=== PATIENT | female | born 1995 | race Two or more races ===

== ENCOUNTER → 2022-12-01 10:35 | Outpatient (BNVA) | payer OTHER, SELFPAY | PROVIDERS: Visit Provider Physician Assistant Surgical ==

== ENCOUNTER → 2022-12-09 13:58 | Outpatient (BNVA) | payer OTHER, SELFPAY | PROVIDERS: Visit Provider Physician Assistant Surgical | DX: E66.01 Morbid (severe) obesity due to excess calories (principal); Z68.41 Body mass index [BMI] 40.0-44.9, adult | CPT/HCPCS: 99202; 99211 ==

== ENCOUNTER 2022-12-09 16:25 | Outpatient (REF) | payer OTHER, SELFPAY ==
[2022-12-10 12:39] LABS: H Pylori Breath Test Negative (Negative)
== END 2022-12-09 16:26 | disposition home or self-care (01) ==
LOC: HO.LNP 16:25
PROVIDERS: Visit Provider Physician Assistant Surgical
DX: E66.01 Morbid (severe) obesity due to excess calories (principal)
CPT/HCPCS: 83013

== ENCOUNTER 2022-12-13 10:20 | Outpatient (REF) | payer OTHER, SELFPAY ==
--- NOTE | ~2022-12-13 | XR_ITS ---
EXAMINATION: XR CHEST CLINICAL INFORMATION: Reason for Exam E66.01 - Morbid (severe) obesity due to excess calories COMPARISON: None TECHNIQUE: 2 views of the chest FINDINGS: Lines and tubes: None. Clear lungs. No pleural effusion. No pneumothorax. Normal cardiomediastinal silhouette. XR/XR chest 2V IMPRESSION: * Clear lungs.
--- NOTE | 2022-12-13 10:30 | ECG_ITS ---
Test Reason : MORBID OBESITY Blood Pressure : / mmHG Vent. Rate : 079 BPM Atrial Rate : 079 BPM P-R Int : 150 ms QRS Dur : 080 ms QT Int : 370 ms P-R-T Axes : 019 093 043 degrees QTc Int : 424 ms Normal sinus rhythm Rightward axis Borderline ECG No previous ECGs available Referred By: Karely Modi Electronically Signed By:DIEGO FANG
[2022-12-13 10:44] LABS: MANUAL DIFF FLAG NO
[2022-12-13 11:08] LABS: Basophils Percent Auto 0.5 % (0-2); Eosinophils Absolute Auto 0.2 X10*3/uL (0.0-0.4); Eosinophils Percent Auto 2.4 % (0-4); Hematocrit 43.2 % (37.0-47.0); Hemoglobin 14.1 g/dl (12.0-16.0); Imm Gran Abs Auto 0.03 X10*3/uL (0.00-0.03); Imm Gran Pct Auto 0.4 % (0.0-0.4); Lymphocytes Absolute Auto 2.6 X10*3/uL (1.2-4.9); Lymphocytes Percent Auto 32.2 % (20-40); Mean Corpuscular HGB Conc 32.6 g/dl (31.0-35.0); Mean Corpuscular Hemoglobin 27.9 pg (27.0-33.0); Mean Corpuscular Volume 85.4 fL (80.0-98.0); Mean Platelet Volume 10.7 fL (9.4-12.3); Monocytes Absolute Auto 0.7 X10*3/uL (0.1-1.2); Monocytes Percent Auto 8.8 % (2-11); Neutrophils Absolute Auto 4.5 x10*3/uL (2.0-8.3); Neutrophils Percent Auto 55.7 % (45-73); Platelet Count 314 X10*3/uL (160-400); Red Blood Count 5.06 X10*6/uL (4.20-5.50); Red Cell Distribution Width 14.8 % (11.0-16.0)
[2022-12-13 11:17] LABS: Estimated Average Glucose 100 mg/dL; Hemoglobin A1c % 5.1 %
[2022-12-13 12:11] LABS: Alanine Aminotransferase 15 U/L (0-31); Albumin Level 4.1 g/dL (3.5-5.0); Alkaline Phosphatase 102 U/L (39-117); Anion Gap 13 (12-20); Aspartate Amino Transferase 13 U/L (5-31); Bilirubin Total 0.3 mg/dL (0.0-1.0); Blood Urea Nitrogen 18 mg/dL (9-16); C Reactive Protein 0.34 mg/dL (< or = 0.50); Calcium 9.6 mg/dL (8.4-10.2); Carbon Dioxide 26 mmol/L (22-29); Chloride 107 mmol/L (96-108); Cholesterol 148 mg/dL; Estimated Glomerular Filt Rate > 60; Glucose Random 103 mg/dL (60-115); HDL Cholesterol 45 mg/dL; Iron 40 mcg/dL (30-160); LDL Cholesterol Calculated 87 mg/dl; Percent Iron Saturation 13 % (15-50); Potassium 4.6 mmol/L (3.3-5.1); Sodium 141 mmol/L (135-145); Total Iron Binding Capacity 302 mcg/dL (228-428); Total Protein 7.6 g/dL (6.5-8.0); Triglycerides 81 mg/dL; Unsaturated Iron Binding 262 ug/dL
[2022-12-13 12:31] LABS: Folate 10.4 ng/mL (> or = 4.0); Vitamin B12 420 pg/mL (200-900)
[2022-12-13 12:37] LABS: Ferritin 30 ng/mL (10-122); Insulin 19 uU/mL (2-29); TSH reflex Free T4 0.47 uIU/mL (0.32-4.0); Vitamin D 25-OH Total 19.5 ng/mL (>30)
[2022-12-15 13:19] LABS: Calcium (PTHI) 9.4 mg/dL (8.6-10.2); PTHI 37 pg/mL (16-77)
[2022-12-17 06:09] LABS: Zinc 64 mcg/dL (60-130)
== END 2022-12-13 10:21 | disposition home or self-care (01) ==
LOC: HO.LAB 10:20
PROVIDERS: Visit Provider Physician Assistant Surgical
DX: E66.01 Morbid (severe) obesity due to excess calories (principal)
CPT/HCPCS: 36415; 71046; 80053; 80061; 82306; 82607; 82728; 82746; 83036; 83525; 83540; 83970; 84443; 84630; 85025; 86140; 93005

== ENCOUNTER 2022-12-30 08:56 | Outpatient (REF) | payer OTHER, SELFPAY | END 2022-12-30 08:57 | disposition home or self-care (01) | LOC: HO.XRAY 08:56 | PROVIDERS: Visit Provider Physician Assistant Surgical | DX: E66.01 Morbid (severe) obesity due to excess calories (principal) | CPT/HCPCS: 74246; 99212 ==

== ENCOUNTER 2023-01-06 10:01 | Outpatient (AMB) | payer OTHER, SELFPAY ==
--- NOTE | 2023-01-06 10:09 | MHC.WMTHER ---
Intake Intake Visit Reasons: (OV) BH Intake Allergies No Known Allergies Allergy (Verified 12/30/22 13:43) PFSH Family History Mother TSH (thyroid-stimulating hormone deficiency) Father Diabetes Daughter No problems noted. Daughter No problems noted. Son Asthma Social History Alcohol intake: never Patient Tobacco Use Status: Never used Tobacco Behavioral Health Assessment Weight Management Therapy Therapy Notes Details Pt is a 27 year old, , [place] Speaking female who presents for initial assessment as part of Surgical Weight-loss management program. PT reports her weight lamb started in 2016 after first , then in 2018 she found confort in food to deal with grief after losing a love one, and now after 3rd child she wants to have a lifelong change with bariatric surgery. PT denies ever been in counseling before, denies any past hospitalization for mental health, reported no hx of substance use and/or addictive behavior and denied ever struggle with SI and/or other form of self/other-harm. PT scores from BES showed minimal risk for Binge eating behavior, she also denied not been engaging in emotional eating for the past years and scores from PHQ-9 were not a concern or indicator of depression. PT is cleared from the standpoint but she wants to continue receiving monthly support from this provider. Presenting Concerns Referral Source [facility] Provider. Reason for referral Completion of behavioral health assessment as part of process for weight-loss surgery. Precipitating Event Obesity, gets tired easily. Living Situation Current Living Situation Rent At risk of losing current housing? No Satisfied with current living situation? Yes Comments PT lives with 3 children and partner. Food/Weight/Diet Expectations of change PT wants to achieve a healthy weight and lifestyle. History/Relationship with food In 2018 her grandmother and she did her grief with comfort-eating. Since became a mother she started skipping meals, usually breakfast and lunch, leading her to eat once at day. Usually her one meal at day was rice, beans, meat. If she wasn't as hungry she had cereal/milk. She used to eat out 1-2 times at week. History/Relationship with weight She was skinny in childhood. Then as a teen was on normal weight. Started gaining weight after first in 2016. History/Relationship with dieting Pt has tried several diets, exercise plans, Herbalife, OTC pills. Usually tried things for about 6 months, was able to lost 20Lbs with Herbalife but gained weight back with last . Binge Eating Do you frequently eat large amounts of food in short periods of time, not feeling physically hungry? No Do you feel out of control when you eat a large amount of food in a short period of time? No Do you eat large amounts of food rapidly and typically alone? No Night Eating Do you wake up at least once during the night to eat? No If you wake up in the night, do you find that it is necessary to eat something in order to fall back asleep? No Do you have little or no appetite in the morning and feel very hungry in the evening, often overeating between dinner and when you go to bed? Yes Social History Family history and relationship Pt is in a relationship with youngest daughter's father for about 2 years. She has 15 siblings she's aware of (7 mother's side, about 8 from dad's side). They all are very close. Parents are alive but , they live in [place]. Parental/Familial collaborative physician obligations 3 children. (7 y/o son, 5y/o daughter, and 8 month old daughter) Developmental history and status within normal limits. Social support [employer], children. Community support providers Faith/Spirituality None specified. Cultural/Ethnic information PT was born in [place]. Moved to [place] 2 years ago. Pt is mainly [place]-speaking. Legal Involvement and History Current or historical involvement with the legal system? None reported Education Highest grade completed 12th grade. She has a certificate in gastronomy. Preferred learning style Written, Learn by doing and Visual Currently enrolled in educational program? No Interested in further educational program? 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 Employment Employment Status Unemployed Wants help to find employment? No (She's looking into go back to school. ) Meaningful activities Family activities, go to the park, music. Financial Situation Financial assistance? [place], [employer] and Other ([employer]) Service Service? No Mental Health and Addiction Treatment Current/Past substance abuse? No Current/Past addictive behavior concerns? No Psychiatric history Never been in therapy and/or hospitalized for mental health. Denies ever experience SI, and or other self-harm/other-harm concern. Medical and Physical Health Summary Additional Medical History not covered in history None reported Sexual History concerns None reported Physical exam in the last year? No Pain Screening Current pain? Yes Pain in the last few months? Yes Comments Back pain. Medications Is the patient compliant with medications? Not applicable Does the patient have Pryor Guardian in place? Not applicable Does the patient use complimentary health approaches? No Trauma/Abuse History History of trauma? No Questionnaires PHQ-9 Over the last 2 weeks, how often have you been bothered by any of the following problems? 1. Little interest or pleasure in doing things: several days 2. Feeling down, depressed, or hopeless: not at all 3. Trouble falling or staying asleep, or sleeping too much: several days 4. Feeling tired or having little energy: several days 5. Poor appetite or overeating: not at all 6. Feeling bad about yourself - or that you are a failure or have let yourself or your family down: not at all 7. Trouble concentrating on things, such as reading the newspaper or watching television: not at all 8. Moving or speaking so slowly that other people could have noticed. Or the opposite - being so fidgety or restless that you have been moving around a lot more than usual: not at all 9. Thoughts that you would be better off or of hurting yourself in some way: not at all Total score: 3 Depression Screening Interpretation: Negative Source: Developed by Drs. Denny Dewey, Sailaja Lay, Silvano Menjivar and colleagues, with an educational dominick from [employer] Binge Eating Scale Group 1 A. I don't feel self-conscious about my wt. or body size when I'm with others. B. I feel concerned about how I look to others, but it normally does not make me fell disappointed with myself C. I do get self-conscious about my appearance and wt. which makes me feel disappointed in myself. D. I feel very self-conscious about my wt. and frequently I feel intense shame and disgust for myself. I try to avoid social contacts because of my self-consciousness. Response Group 1: B Group 2 A. I don't have any difficulty eating slowly in the proper manner. B. Although I seem to gobble down foods, I don't end up feeling stuffed because of eating to much. C. At times, I tend to eat quickly and then, I feel uncomfortably full afterwards. D. I have the habit of bolting down my food, without really chewing it. When this happens I usually feel uncomfortably stuffed because I've eaten to much. Response Group 2: A Group 3 A. I feel capable to control my eating urges when I want to. B. I feel like I have failed to control my eating more than the average person. C. I feel utterly helpless when it comes to feeling in control of my eating urges. D. Because I feel so helpless about controlling my eating I have become very desperate about trying to get control. Response Group 3: B Group 4 A. I don't have the habit of eating when I'm bored. B. I sometimes eat when I'm bored, but often I'm able to get busy and get my mind off food. C. I have a regular habit of eating when I'm bored, but occasionally, I can use some other activity to get my mind off eating. D. I have a strong habit of eating when I'm bored. Nothing seems to help me breath the habit. Response Group 4: B Group 5 A. I'm usually physically hungry when I eat something. B. Occasionally, I eat something on impulse even though I really am not hungry. C. I have the regular habit of eating foods, that I might not really enjoy, to satisfy a hungry feeling even though physically, I don't need the food. D. Although I'm not physically hungry, I get a hungry feeling in my mouth that only seems to be satisfied when I eat a food, like sandwich, that fills my mouth. Sometimes, when I eat the food to satisfy my mouth hunger, I then spit the food out so I won't gain weight. Response Group 5: B Group 6 A. I don't feel any guilt or self-hate after I overeat. B. After I overeat, occasionally I feel guilt or self-hate. C. Almost all the time I experience strong guilt or self-hate after I overeat. Response Group 6: C Group 7 A. I don't lose total control of my eating when dieting even after periods when I overeat. B. Sometimes when I eat a forbidden food on a diet, I feel like I blew it and eat even more. C. Frequently, I have the habit of saying to myself, I've blown it now, why not go all the way, when I overeat on a diet. When that happens I eat more. D. I have a regular habit of starting a strict diets for myself but I break the diets by going on an eating binge. My life seems to be either a feast or famine. Response Group 7: A Group 8 A. I rarely eat so much food that I feel uncomfortably stuffed afterwards. B. Usually about once a month, I each such a quantity of food, I end up feeling very stuffed. C. I have regular periods during the month when I eat large amounts of food, either at mealtime or at snacks. D. I eat so much food that I regularly feel quite uncomfortable after eating and sometimes a bit nauseous. Response Group 8: C Group 9 A. My level of calorie intake does not go up very high or go down very low on a regular basis. B. Sometimes after I overeat, I will try to reduce my caloric intake to almost nothing to compensate for the excess calories I've eaten. C. I have a regular habit of overeating during the night. It seems that my routine is not to be hungry in the morning but overeat in the evening. D. In my adult years, I have had week-long periods where I practically starve myself. This follows periods when I overeat. It seems I live a life of either feast or famine. Response Group 9: C Group 10 A. I usually am able to stop eating when I want to. I know when enough is enough. B. Every so often, I experience a compulsion to eat which I can't seem to control. C. Frequently, I experience strong urges to eat which I seem unable to control, but at other times I can control my eating urges. D. I feel incapable of controlling urges to eat. I have a fear of not being able to stop eating voluntarily. Response Group 10: A Group 11 A. I don't have any problem stopping eating when I feel full. B. I usually can stop eating when I feel full but occasionally overeat leaving me feeling uncomfortably stuffed. C. I have a problem stopping eating once I start and usually I feel uncomfortably stuffed after I eat a meal. D. Because I have a problem not being able to stop eating when I want, I sometimes have to induce vomiting to relieve my stuffed feeling. Response Group 11: B Group 12 A. I seem to eat just as much when I'm with others, Family social gatherings as when I'm by myself. B. Sometimes, when I'm with other persons, I don't eat as much as I want to eat because I'm self-conscious about my eating. C. Frequently, I eat only a small amount of food when others are present, because I'm very embarrassed about my eating. D. I feel so ashamed about overeating that I pick times to overeat when I know no one will see me. I feel like a closet eater. Response Group 12: A Group 13 A. I eat three meals a day with only an occasional between meal snack. B. I eat 3 meals a day, but I also normally snack between meals. C. When I am snacking heavily, I get in the habit of skipping regular meals. D. There are regular periods when I seem to be continually eating, with no planned meals. Response Group 13: D Group 14 A. I don't think much about trying to control unwanted eating urges. B. At least some of the time, I feel my thoughts are pre-occupied with trying to control my eating urges. C. I feel that frequently I spend much time thinking about how much I ate or about trying not to eat anymore. D. It seems to me that most of my waking hours are pre-occupied by thoughts about eating or not eating. I feel like I'm constantly struggling not to eat. Response Group 14: B Group 15 A. I don't think about food a great deal. B. I have strong craving for food but they last only for brief periods of time. C. I have days when I can't seem to think about anything else but food. D. Most of my days seem to be pre-occupied with thoughts about food. I feel like I live to eat. Response Group 15: A Group 16 A. I usually know whether or not I'm physically hungry. I take the right portion of food to satisfy me. B. Occasionally, I feel uncertain about knowing whether or not I'm physically hungry. A these times it's hard to know how much food I should take to satisfy me. C. Even though I might know how many calories I should eat, I don't have any idea what is a normal amount of food for me. Response Group 16: B Binge Eating Score: 16 Score less than 17 Minimal Risk Score between 18-26 Moderate Risk Score between 27-46 High Risk Assessment & Plan Assessment & Plan (1) Adjustment disorder: Code(s): F43.20 - Adjustment disorder, unspecified Qualifiers: Adjustment disorder type: unspecified type Qualified Code(s): F43.20 - Adjustment disorder, unspecified Plan After completing the assessment and comparing scores from Binge eating scale and PHQ9, at this time, this commercial real estate underwriter has no concerns about patient's mental status. Client is cleared from the behavioral health standpoint but, we will f/up in about a month for support. Coding Level of Care Code New Pt Psy Diag Flip (34682) Patient Type New Diagnoses Adjustment disorder F43.20 Adjustment disorder type: unspecified type Time Spent (min) 60
== END 2023-01-06 11:10 | disposition home or self-care (01) ==
PROVIDERS: Visit Provider Counselor Mental Health
DX: F43.20 Adjustment disorder, unspecified (principal)
CPT/HCPCS: 90791

== ENCOUNTER → 2023-01-06 10:01 | Outpatient (BNVA) | payer OTHER, SELFPAY | PROVIDERS: Visit Provider Counselor Mental Health ==

== ENCOUNTER 2023-01-10 11:12 | Outpatient (AMB) | payer OTHER, SELFPAY ==
--- NOTE | 2023-01-10 11:17 | A.OFFVIS_ITS ---
Intake Intake Visit Reasons: (OV) Initial Nutrition [facility] Fisher Diver Net Required: Yes Fisher Diver Net Name: [id number] lilly Information Interpreted: non-clinical & clinical Allergies No Known Allergies Allergy (Verified 12/30/22 13:43) HPI Nutrition Presentation Details [employer] weight 227# Current weight 227# Reason for consult elevated BMI Unstable SDH Reports use of SNAP and WIC Diet Assmnt Details Two 1 scoop Premier powder with 8oz non-fat milk 2-3 Fitcrunch bars about 4 oz of protein (chicken, pork chop, or fish), and vegetables Exercise: stationary bike at home, following her plan SW online classes : completed, she took the entire curriculum several times. She wanted to understand and learn everything. she took notes as well and showed me Dietary counseling reduction Diagnosis Nutrition problem #1 overweight/obesity As related to (etiology) #1 excess energy intake and physical inactivity As evidenced by (sign/symptom) #1 high BMI Monitoring/Goals Nutrition problem monitoring total energy intake, level of knowledge/skill, total PRO intake, total CHO intake, weight and oral fluids Outcome progress progressing Learning/Education Readiness to learn excellent Stages of change action Educational materials provided Yes Most Recent Diabetes Results: Cholesterol 148 mg/dL 12/13/22 HDL Cholesterol 45 mg/dL 12/13/22 Triglycerides 81 mg/dL 12/13/22 Creatinine 0.82 mg/dL (0.5-1.4) 12/13/22 Blood Urea Nitrogen 18 mg/dL (9-16) H 12/13/22 Sodium 141 mmol/L (135-145) 12/13/22 Potassium 4.6 mmol/L (3.3-5.1) 12/13/22 Chloride 107 mmol/L (96-108) 12/13/22 Carbon Dioxide 26 mmol/L (22-29) 12/13/22 Calcium 9.6 mg/dL (8.4-10.2) 12/13/22 AST 13 U/L (5-31) 12/13/22 ALT 15 U/L (0-31) 12/13/22 Total Protein 7.6 g/dL (6.5-8.0) 12/13/22 Albumin 4.1 g/dL (3.5-5.0) 12/13/22 PFSH Family History Mother TSH (thyroid-stimulating hormone deficiency) Father Diabetes Daughter No problems noted. Daughter No problems noted. Son Asthma Social History Alcohol intake: never Patient Tobacco Use Status: Never used Tobacco Assessment & Plan Assessment & Plan (1) Morbid obesity: Code(s): E66.01 - Morbid (severe) obesity due to excess calories Patient Instructions: Patient is cleared from a nutrition standpoint for bariatric surgery. Educational requirements have been completed. Reviewed vitamin supplementation and commitment to protein shake for several months post surgery. Encouraged communication with office as needed Coding Level of Care Code Nutr Indiv Intake (72783) Diagnoses Morbid obesity E66.01 Time Spent (min) 30 Comment in office
== END 2023-01-10 11:47 | disposition home or self-care (01) ==
PROVIDERS: Visit Provider Dietitian, Registered
DX: E66.01 Morbid (severe) obesity due to excess calories (principal)

== ENCOUNTER → 2023-01-10 11:53 | Outpatient (REF) | payer OTHER, SELFPAY | LOC: HO.SL 11:53 | PROVIDERS: Visit Provider Physician Assistant Surgical | DX: R06.83 Snoring (principal); E66.01 Morbid (severe) obesity due to excess calories | CPT/HCPCS: 95806; 97802 ==

== ENCOUNTER → 2023-01-10 12:55 | Outpatient (BNV) | payer OTHER, SELFPAY | PROVIDERS: Visit Provider Internal Medicine | DX: R06.83 Snoring (principal) | CPT/HCPCS: 95806 ==

== ENCOUNTER 2023-01-11 09:57 | Outpatient (REF) | payer OTHER, SELFPAY ==
--- NOTE | ~2023-01-11 | US_ITS ---
EXAMINATION: US COMPLETE ABDOMEN WITH LIVER ELASTOGRAPHY CLINICAL INFORMATION: Morbid obesity. COMPARISON: None available. TECHNIQUE: Real-time imaging of the abdominal viscera. Noninvasive ultrasound liver fibrosis assessment is performed using Piotr ElastPQ point quantification shear wave elastography (2D-SWE) with a C5-2 MHz transducer. Multiple elastography samples are obtained. FINDINGS: PANCREAS: Normal. The visualized pancreatic head and body are normal in appearance. The remainder of the pancreas is obscured from visualization by the overlying bowel gas. ABDOMINAL AORTA: The proximal, middle, and distal aortic segments are normal in caliber. INFERIOR VENA CAVA: Visualized portions are normal. LIVER: Normal. The liver demonstrates normal size, contour and echogenicity. No focal lesion or intrahepatic biliary duct dilatation. The right lobe measures 18.9 cm in length. The left lobe measures 10.3 cm in length. Portal flow is towards the liver (hepatopetal). Shear wave liver elastography median stiffness is 1.16 m/s (reference: normal median stiffness is 1.3 m/s or less). IQR/median stiffness to assess sampling precision is 0.04 (reference: good quality data set is IQR/median stiffness of 0.15 or less). GALLBLADDER: A 5 mm nonmobile polyp is seen. The gallbladder is physiologically distended without evidence of stones, sludge, polyps, wall thickening or pericholecystic fluid. COMMON BILE DUCT: Normal in caliber measuring 0.3 cm in diameter. RIGHT KIDNEY: Normal. There is very mild pelviectasis, without alok hydronephrosis. No renal calculi or focal parenchymal lesions. The kidney measures 11.8 cm in maximum dimension. LEFT KIDNEY: Normal. No hydronephrosis. No renal calculi or focal parenchymal lesions. The kidney measures 10.0 cm in maximum dimension. SPLEEN: Normal. The spleen measures 10.7 cm in maximum dimension. FREE FLUID: None. US/US abdomen comp w elastography IMPRESSION: 1. There is mild hepatomegaly. 2. Liver elastography: Measurements are consistent with a high probability of normal liver stiffness. 3. A 5 mm nonmobile gallbladder polyp is seen. As a precaution, a repeat abdominal ultrasound examination is recommended in 6 months to ensure stability of this finding. REFERENCE: Society of Radiologists in Ultrasound Liver Stiffness Thresholds (2020): LIVER STIFFNESS THRESHOLDS: *Liver Stiffness equal or less than 1.3 m/s: High probability of being normal. *Liver Stiffness less than 1.7 m/s: In the absence of other known clinical signs, rules out compensated advanced chronic liver disease. *Liver Stiffness 1.7-2.1 m/s: Suggestive of compensated advanced chronic liver disease but need further test for confirmation. *Liver Stiffness over 2.1 m/s: Rules in compensated advanced chronic liver disease. *Liver Stiffness over 2.4 m/s: Suggestive of clinically significant portal hypertension. QUALITY OF DATA SET: *IQR/Median value equal or less than 0.15 implies a quality data set. *IQR/Median value over 0.15 implies a poor quality data set. SIGNIFICANT CHANGE FROM PRIOR EXAM: Significant change if liver stiffness measurement is 10% or greater from prior exam. OTHER CONSIDERATIONS: The stage of liver fibrosis may be overestimated in the setting of acute hepatitis, liver inflammation, elevated liver function tests, hepatic vascular congestion, obstructive cholestasis, non-fasting state, and infiltrative diseases such as amyloidosis and lymphoma. In some patients with NAFLD, the liver stiffness thresholds for compensated advanced chronic liver disease may be lower. In causes other than viral hepatitis and NAFLD, liver stiffness thresholds are not well established.
== END 2023-01-11 09:58 | disposition home or self-care (01) ==
LOC: HO.US 09:57
PROVIDERS: Visit Provider Physician Assistant Surgical
DX: E66.01 Morbid (severe) obesity due to excess calories (principal)
CPT/HCPCS: 76705; 76981

== ENCOUNTER 2023-02-07 13:04 | Outpatient (AMB) | payer OTHER, SELFPAY ==
--- NOTE | 2023-02-07 13:07 | MHC.OFFVISWM ---
Intake VS Expanded 02/07/23 13:14 Height 5 ft 2.5 in Weight 217 lb 6.4 oz BMI 39.1 BP 132/79 Blood Pressure Location Rt brachial Blood Pressure Position Sitting Pulse 95 Pulse Source Pulse Oximeter Temp 97.4 F Temperature Source Temporal Artery Scan Pulse Oximetry 100 Oxygen Delivery Method Room Air Body Fat 97.0 Body Fat Percentage 44.6 Free Fat Mass 120.4 Muscle Mass 114.2 Visceral Mass 10.0 Water Mass 86.6 BMR 1,729 Intake Visit Reasons: (OV) F/U SWL Allergies No Known Allergies Allergy (Verified 12/30/22 13:43) Medication List - Last Reconciled 02/07/23 by FROY Alfredo cholecalciferol (vitamin D3) 50 mcg PO DAILY HPI HPI Comments History of Present Illness Details The patient is a p josé 27 year ol d female who retur ns to the clinic f or pre-operative s urgical weight los s management.?They were last seen in the office on 12/30, recorded we ight at that time was 231.2 pounds, with a BMI of 41.6 .? Today's weight is 217.4 pounds an d BMI is 39.1.? Th ere has been a sen ght loss of 12.8lb since initiating the SWL program on 12/09/2022 with TB WL 5.56%. Pre op work up completed as follows: SWL c lasses:?01/31 BH williams ts: cleared 01/06 ? ? RD appts: cleare d 01/10 Labs: 12/13- low vit D H. pylo ri: negative 12/09 CXR: 12/13 clear magdaleno ngs EK/20 NSR ABD U/S: 01/11- mil d hepatomegaly, li aby stiffness WNL, 5mm nonmobile gal lbladder polyp (6m o f/u recommended) UGI: 01/11- Mild t ransient gastroeso phageal reflux wit hin the distal thi rd of the esophagu s. Otherwise unrem arkable upper GI e xamination Curre nt meal plan inclu darin: Premier 1 sco op in 8oz unsweete herlinda almond milk ea ch at 8am-10am, an d 11am-1pm. On day s you sleep later, have one shake wi th 2 scoops in 8oz milk at 11am-1pm. 2 FitCrunch prot ein bars at 2pm-4p m and 7pm-9pm Dinn er at 5pm: 6 forks of protein and 6 forks of salad/veg etables Pt report s she eliminated i ce, made almond mi lk cold so she res umed drinking this instead of 1% mil k. Current exerc ise plan includes: likes to walk, 30 0-400 calories now up to 7x/week PFSH Family History Mother TSH (thyroid-stimulating hormone deficiency) Father Diabetes Daughter No problems noted. Daughter No problems noted. Son Asthma Social History Alcohol intake: never Patient Tobacco Use Status: Never used Tobacco Assessment & Plan Assessment & Plan (1) Obesity: Code(s): E66.9 - Obesity, unspecified Plan Pt doing well on current meal plan, increased exercise. Congratulated pt on her progress thus far. All preop testing completed. Will schedule visit with Dr. Mustafa in 2 weeks to discuss surgery. Discussed with pt that at next visit if she continues to make good progress we can consider submitting to insurance and scheduling a surgery date. Pt to see me again in 4-5 weeks (scheduled for March but I informed pt I would keep her on my cancellation list for sooner appt in February). Patient is obese and is not considered stable at this time. I spent a total of 30 minutes reviewing/updating records, examining the patient and counseling the patient on weight management as detailed above. Coding Level of Care Code Est Pt Level 4 (10219) Diagnoses Obesity E66.9
[2023-02-07 13:14] VITALS: BP 132/79; PULSE 95; TEMP 36.3; O2SAT 100; BMI 39.1
== END 2023-02-07 13:40 | disposition home or self-care (01) ==
PROVIDERS: Visit Provider Physician Assistant Surgical
DX: E66.9 Obesity, unspecified (principal); Z68.39 Body mass index [BMI] 39.0-39.9, adult
CPT/HCPCS: 99214

== ENCOUNTER → 2023-02-07 13:04 | Outpatient (BNVA) | payer OTHER, SELFPAY | PROVIDERS: Visit Provider Physician Assistant Surgical | DX: E66.9 Obesity, unspecified (principal); Z68.39 Body mass index [BMI] 39.0-39.9, adult | CPT/HCPCS: 99212 ==

== ENCOUNTER 2023-02-16 10:53 | Outpatient (AMB) | payer OTHER, SELFPAY ==
--- NOTE | 2023-02-16 10:43 | A.OFFVIS_ITS ---
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 Weight history shows fluctuations, suggesting that patient is still struggling with consistency Ate rice, started drinking soda again, fried foods At last appointment reported: Two 1 scoop Premier powder with 8oz non-fat milk 2-3 Fitcrunch bars about 4 oz of protein (chicken, pork chop, or fish), and vegetables Exercise: stationary bike at home, following her plan [facility] online classes : completed, she took the entire curriculum several times. She wanted to understand and learn everything. she took notes as well and showed me Dietary counseling reduction Diagnosis Nutrition problem #1 overweight/obesity As related to (etiology) #1 excess energy intake and physical inactivity As evidenced by (sign/symptom) #1 high BMI Monitoring/Goals Nutrition problem monitoring total energy intake, level of knowledge/skill, total PRO intake, total CHO intake, weight and oral fluids Outcome progress progressing Learning/Education Readiness to learn excellent Stages of change relapse Educational materials provided Yes Most Recent Diabetes Results: Cholesterol 148 mg/dL 12/13/22 HDL Cholesterol 45 mg/dL 12/13/22 Triglycerides 81 mg/dL 12/13/22 Creatinine 0.82 mg/dL (0.5-1.4) 12/13/22 Blood Urea Nitrogen 18 mg/dL (9-16) H 12/13/22 Sodium 141 mmol/L (135-145) 12/13/22 Potassium 4.6 mmol/L (3.3-5.1) 12/13/22 Chloride 107 mmol/L (96-108) 12/13/22 Carbon Dioxide 26 mmol/L (22-29) 12/13/22 Calcium 9.6 mg/dL (8.4-10.2) 12/13/22 AST 13 U/L (5-31) 12/13/22 ALT 15 U/L (0-31) 12/13/22 Total Protein 7.6 g/dL (6.5-8.0) 12/13/22 Albumin 4.1 g/dL (3.5-5.0) 12/13/22 PFSH Family History Mother TSH (thyroid-stimulating hormone deficiency) Father Diabetes Daughter No problems noted. Daughter No problems noted. Son Asthma Social History Alcohol intake: never Patient Tobacco Use Status: Never used Tobacco Assessment & Plan Assessment & Plan (1) Morbid obesity: Code(s): E66.01 - Morbid (severe) obesity due to excess calories Patient Instructions: Concerned about patient's weight history which shows fluctuations. Explained she use this experiences as a learning opportunity and explained why it is important to find alternative coping strategies non-food related and I recommended an appointment with [facility] Location of provider rendering services: practice address Location of patient: address on file Patient Identification confirmed using: Name, : Yes Telehealth method: voice only Patient verbally consented to treatment: Yes Patient verbally consented to billing insurance company: Yes Patient informed of any privacy concerns related to visit: Yes Minutes spent on Phone/Video with Pt.: 30 Coding Level of Care Code Nutr Indiv Subseq ([id number]) Diagnoses Morbid obesity E66.01 Time Spent (min) 30
--- OUTSIDE RECORDS SUMMARY | 2023-02-16 10:55 | XMS_ITS | Continuity of Care Document ---
Author Name Unknown Organization [facility] Address [address] [place] [id number]- Care Team Providers Care Corrections Counselor Name Role Phone Not on Staff, PCP Primary Care Physician Unavail able Encounter [facility] [place] [facility] Date(s): 01/25/22 - 05/22/[address] [address] Attending Physician: Not on Staff, Attending MD Allergies, Adverse Reactions, Alerts No Known Allergies Immunizations Given and Recorded Vaccine Date Status Refusal Reason influenza virus vaccine, inactivated 04/20/22 Give n Measles/Mumps/Rubella Virus Vaccine 04/19/22 Given tetanus/diphtheria/pertussis, acel(Tdap) 02/10/22 Given Medications Multivitamins with Folic Acid 1 mg oral tablet 1 tablet, By Mouth, Daily, # 90 tablet, 2 Refills, Maintenance, 03/25/22 16:52:00 EDT, [id number], Partial fill upon patient request if the prescription is for a schedule II opioid drug., 1 tablet By Mouth Daily, 160, cm, 03/25/22 16:... Start Date: 03/25/22 Status: Ordered Problem List Condition Confirmation Course Effective Dates Status Health St atus Informant GERD (gastroesophageal reflux disease) Confirmed Active Uses Pashto as primary spoken language Confirmed Active Severe obesity Confirmed Active Social History Social History Type Response Smoking Status Never (less than 100 in lifetime) entered on: 11/08/21 Sex Patient Care team information Care Team Personnel Name: Not on Staff, PCP Position: S Physician (General Medicine) Member Role: PCP Care Team Related Persons Name: AMBER PEREZ Address: home [address] [place] [address] Name: SUZY BRICENO Name: AMAURY IRAHETA Address: [address] Address: [address]
--- OUTSIDE RECORDS SUMMARY | 2023-02-16 10:55 | XMS_ITS | Continuity of Care Document ---
Author Name Unknown Organization [facility] Address [address], [place], [place] [address]- Care Team Providers Care Civil Cad Tech Name Role Phone Not on Staff, PCP Primary Care Physician Unavail able Encounter [facility] [place] Date(s): 06/13/22 - 07/13/22 [facility] [address] [place], [place] [address] Allergies, Adverse Reactions, Alerts No Known Allergies Immunizations Given and Recorded Vaccine Date Status Refusal Reason influenza virus vaccine, inactivated 04/20/22 Give n Measles/Mumps/Rubella Virus Vaccine 04/19/22 Given tetanus/diphtheria/pertussis, acel(Tdap) 02/10/22 Given Medications docusate sodium 100 mg oral tablet 1 tablet = 100 mg, By Mouth, 2 times a day, PRN for constipation, # 100 tablet, 0 Refills, Maintenance, 06/07/22 17:11:00 EST, Tablet, [id number], Partial fill upon patient request if the prescription is for a schedule II opioid drug.... Start Date: 06/07/22 Status: Ordered Problem List Condition Confirmation Course Effective Dates Status Health St atus Informant GERD (gastroesophageal reflux disease) Confirmed Active Uses Icelandic as primary spoken language Confirmed Active Obese class II Confirmed Active Social History Social History Type Response Smoking Status Never (less than 100 in lifetime) entered on: 11/08/21 Sex Patient Care team information Care Team Personnel Name: Not on Staff, PCP Position: S Physician (General Medicine) Member Role: PCP Care Team Related Persons Name: AMBER PEREZ Address: home [address] [place] [address] Name: SUZY BRICENO Name: AMAURY IRAHETA Address: [id number] Address: home [address] [place] [address] [place]
--- OUTSIDE RECORDS SUMMARY | 2023-02-16 10:55 | XMS_ITS | Continuity of Care Document ---
Author Name Unknown Organization [facility] Address [address] [place] [address]- Care Team Providers Care Tire Servicer Name Role Phone Not on Staff, PCP Primary Care Physician Unavail able Encounter [facility] [place] Date(s): 11/12/21 - 12/12/[address] [address]- Allergies, Adverse Reactions, Alerts No Known Allergies Medications Multivitamins By Mouth, Daily, 0 Refills, Maintenance, 10/26/21 16:32:00 EDT, Partial fill upon patient request if the prescription is for a schedule II opioid drug. Start Date: 10/26/21 Status: Ordered Multivitamins with Folic Acid 1 mg oral tablet 1 tablet, By Mouth, Daily, # 90 tablet, 2 Refills, Maintenance, 11/08/21 9:44:00 EDT, [facility], Partial fill upon patient request if the prescription is for a schedule II opioid drug., 1 tablet By Mouth Daily, 159, cm, 11/08/21 9:14:00... Start Date: 11/08/21 Status: Ordered Prometrium 200 mg oral capsule = 200 mg, Vaginally, Daily at bedtime, # 60 tablet, 3 Refills, Acute 03/25/22 16:35:00 EDT, 11/11/21 16:34:00 EDT, [facility], Partial fill upon patient request if the prescription is for a schedule II opioid drug., 159, cm, 11/11/21 15:... Start Date: 11/11/21 Stop Date: 03/25/22 Status: Ordered Problem List Condition Effective Dates Status Health Status Inform ant History of delivery, currently (Confirmed) Active Uses Croatian as primary spok en language(Confirmed) Active Obese class II(Confirmed) Active Social History Social History Type Response Smoking Status Never (less than 100 in lifetime) entered on: 11/08/21 Sex
--- OUTSIDE RECORDS SUMMARY | 2023-02-16 10:55 | XMS_ITS | Continuity of Care Document ---
Author Name Unknown Organization [facility] Address [address] [place] [id number]- Care Team Providers Care Registered Nurse Nursery Name Role Phone Not on Staff, PCP Primary Care Physician Unavail able Encounter [facility] Date(s): 05/12/22 - 06/11/[address] [id number] Allergies, Adverse Reactions, Alerts No Known [...] 0 Refills, Maintenance, 06/07/22 17:11:00 EST, Tablet, [facility][id number], Partial fill upon patient request if the prescription is for a schedule II opioid drug.... Start Date: 06/07/22 Status: Ordered Problem List Condition Confirmation Course Effective Dates Status Health St atus Informant GERD (gastroesophageal reflux disease) Confirmed Active Uses Botswanan as primary spoken language Confirmed Active Obese class II Confirmed Active Social History Social History Type Response Smoking Status Never (less than 100 in lifetime) entered on: 11/08/21 Sex Patient Care team information Care Team Personnel Name: Not on Staff, PCP Position: S Physician (General Medicine) Member Role: PCP Care Team Related Persons Name: PEREZ, AMBER Address: [address] [place] [address] Name: SUZY BRICENO Name: AMAURY IRAHETA Address: [address] Address: home [address]
--- OUTSIDE RECORDS SUMMARY | 2023-02-16 10:55 | XMS_ITS | Continuity of Care Document ---
Author Name Unknown Organization [facility] Address [address] [place] [address]- Care Team Providers Care Fingernail Sculptor Name Role Phone Not on Staff, PCP Primary Care Physician Unavail able Encounter [facility] Date(s): 04/19/22 - 04/21/[address] [address] Discharge Disposition: A-D/C Home Attending Physician: Julia Menard MD Admitting Physician: Julia Menard MD Referring Physician: Julia Menard MD Allergies, Adverse Reactions, Alerts No Known Allergies Immunizations Given and Recorded Vaccine Date Status Refusal Reason influenza virus vaccine, inactivated 04/20/22 Give n Measles/Mumps/Rubella Virus Vaccine 04/19/22 Given tetanus/diphtheria/pertussis, acel(Tdap) 02/10/22 Given Medications Acetaminophen Tablet 650 mg, Tablet, By Mouth, Every 4 hours, PRN for Pain , Mild, (1-3), may give 325mg per patient preference and re-dose with 325mg within 4 hours, if needed. Patient should only receive a total of 650mg of Acetaminophen every 4 hours., Routine, 04/19... Start Date: 04/19/22 Stop Date: 04/21/22 Status: Discontinued Ibuprofen Tablet 800 mg, Tablet, By Mouth, Every 8 hours, PRN for Pain , Moderate, (4-6), may give 400mg per patientpreference and re-dose with 400mg within 8 hours if needed. Patient should only receive a total of 800mg of Ibuprofen every 8 hours., Routine, ... Start Date: 04/19/22 Stop Date: 04/21/22 Status: Discontinued Multivitamins with Folic Acid 1 mg oral tablet 1 tablet, By Mouth, Daily, # 90 tablet, 2 Refills, Maintenance, 03/25/22 16:52:00 EDT, [facility] #[id number], Partial fill upon patient request if the prescription is for a schedule II opioid drug., 1 tablet By Mouth Daily, 160, cm, 03/25/22 16:... Start Date: 03/25/22 Status: Ordered Problem List Condition Confirmation Course Effective Dates Status Health St atus Informant GERD (gastroesophageal reflux disease) Confirmed Active Uses Indonesian as primary spoken language Confirmed Active Severe obesity Confirmed Active Vital Signs Most recent to oldest [Reference Range]: 1 2 3 4 Height 160.02 cm (04/21/22 12:05 AM) 160.02 cm (04/20/22 12:00 AM) 160.02 cm (04/19/22 5:17 PM) Weight 102.5 kg (04/19/22 8:53 AM) 102.5 kg (04/19/22 6:44 AM) Oxygen Saturation [94-100 %] 96 % (04/21/22 9:15 AM) 98 % (04/21/22 12:05 AM) 96 % (04/20/22 12:00 AM) Pulse Rate [55-90 bpm] 88 bpm (04/21/22 12:05 AM) 81 bpm (04/20/22 4:00 PM) 91 bpm *H* (04/20/22 8:15 AM) Body Mass Index [18.5-24.99 kg/m2] 40.03 kg/m2 *>HHI* (04/19/22 8:53 AM) Blood Pressure [90-138/55-84 mm Hg] 120/63mm Hg (04/21/22 9:15 AM) 122/79mm Hg (04/21/22 12:05 AM) 122/73mm Hg (04/20/22 4:00 PM) Respiratory Rate [16-30 br/min] 20 br/min (04/21/22 9:15 AM) 18 br/min (04/21/22 12:05 AM) 18 br/min (04/20/22 11:11 PM) 18 br/min (04/20/22 11:11 PM) Temperature [96.8-100.4 DegF] 98.0 DegF (04/21/22 9:15 AM) 98.9 DegF (04/21/22 12:05 AM) 97.9 DegF (04/20/22 4:00 PM) Mode of Delivery (Oxygen) Room air (04/21/22 9:15 AM) Room air (04/21/22 12:05 AM) Room air (04/19/22 6:53 AM) Blood pressure sites Arm, right (04/21/22 9:15 AM) Arm, right (04/19/22 5:17 PM) Arm, right (04/19/22 11:25 AM) Temperature Route Oral (04/21/22 9:15 AM) Oral (04/21/22 12:05 AM) Oral (04/20/22 4:00 PM) Dry Weight 102.5 kg (04/19/22 8:53 AM) 102.5 kg (04/19/22 6:44 AM) Weight Obtained Via Standing scale (04/19/22 6:44 AM) Dry Weight Obtained Via Standing scale (04/19/22 6:44 AM) Social History Social History Type Response Smoking Status Never (less than 100 in lifetime) entered on: 11/08/21 Sex Patient Care team information Personnel Name: Not on Staff, PCP
--- OUTSIDE RECORDS SUMMARY | 2023-02-16 10:55 | XMS_ITS | Continuity of Care Document ---
Author Name Unknown Organization [facility] Address [address] [place] [address]- Care Team Providers Care Livestock Exhibitor Name Role Phone Not on Staff, PCP Primary Care Physician Unavail able Encounter [facility] Date(s): 12/24/22 - 12/24/[address] [address]- Discharge Disposition: A-D/C Home Attending Physician: Gordon Shrestha MD Admitting Physician: Gordon Shrestha MD Referring Physician: Not on Staff, Referring MD Allergies, Adverse Reactions, Alerts No Known [...] 0 Refills, Maintenance, 06/07/22 17:11:00 EST, Tablet, [id number], Partial fill upon patient request if the prescription is for a schedule II opioid drug.... Start Date: 06/07/22 Status: Ordered hydrocortisone 1% topical cream 1 application, Topically, 2 times a day, PRN Itch, for 7 days, apply in a thin film to the affectedskin and rub in gently and completely, # 15 Gm, 0 Refills, Acute 12/31/22 19:38:00 EDT, 12/24/22 19:38:00 EDT, Cream, [facility] #[id number], Part... Start Date: 12/24/22 Stop Date: 12/31/22 Status: Ordered Problem List Condition Confirmation Course Effective Dates Status Health St atus Informant GERD (gastroesophageal reflux disease) Confirmed Active Uses Chinese as primary spoken language Confirmed Active Severe obesity (BMI 35.0-39.9) with comorbidity Confirmed Active Vital Signs Most recent to oldest [Reference Range]: 1 2 3 Height 160 cm (12/24/22 2:51 PM) Weight 100 kg (12/24/22 2:51 PM) Oxygen Saturation [94-100 %] 100 % (12/24/22 7:48 PM) 99 % (12/24/22 2:51 PM) 98 % (12/24/22 2:49 PM) Pulse Rate [55-90 bpm] 82 bpm (12/24/22 7:48 PM) 89 bpm (12/24/22 2:51 PM) 95 bpm *H* (12/24/22 2:49 PM) Body Mass Index [18.5-24.99 kg/m2] 39.06 kg/m2 *>HHI* (12/24/22 2:51 PM) Blood Pressure [90-138/55-84 mm Hg] 123/66mm Hg (12/24/22 7:48 PM) 121/77mm Hg (12/24/22 2:51 PM) Respiratory Rate [16-30 br/min] 16 br/min (12/24/22 7:48 PM) 18 br/min (12/24/22 2:51 PM) Temperature [96.8-100.4 DegF] 98.4 DegF (12/24/22 7:48 PM) 98.5 DegF (12/24/22 2:51 PM) Mode of Delivery (Oxygen) Room air (12/24/22 7:48 PM) Room air (12/24/22 2:51 PM) Room air (12/24/22 2:49 PM) Blood pressure sites Arm, left (12/24/22 7:48 PM) Arm, right (12/24/22 2:51 PM) Temperature Route Oral (12/24/22 7:48 PM) Oral (12/24/22 2:51 PM) Dry Weight 100 kg (12/24/22 2:51 PM) Weight Obtained Via Patient/family state d (12/24/22 2:51 PM) Dry Weight Obtained Via Patient/family s tated (12/24/22 2:51 PM) Social History Social History Type Response Smoking Status Never (less than 100 in lifetime) entered on: 11/08/21 Sex Note * Tiana García: PERFORM Event Display: Patient Education Leaflets Authored Date: [id number] Hydrocortisone Topical Cream ?? 44953-028oz Hydrocortisone Topical Cream Brands: Ala-Brett, Cortaid, Cortizone, Proctocort Usos Danita medicamento se usa para las siguientes afecciones: ??? picor ??? inflamaci??n de la piel ?? Instrucciones NO tome danita medicamento por la boca. Aplique el medicamento al ??gilbert afectada. Lave el ??gilbert juan, antes de aplicar el medicamento. No cubra el ??gilbert despu??s de aplicar el medicamento. Mantenga el medicamento a temperatura ambiente, alejado natasha y el calor. Danita medicamento s??lo debe usarse en la piel. No aplicarse otras lociones, geles, cremas ni cosm??ticos hallie al menos 30 minutos despu??s de utilizar danita medicamento. Es mejor evitar utilizar estos productos en el ??gilbert afectada hasta que haya terminado de usar danita medicamento. Evite que el medicamento entre en los ojos, la nariz o la boca. Despu??s de aplicarlo, l??vese paraeliminar los restos del medicamento de los dedos. Frote el medicamento con suavidad para que penetre en el ??gilbert hasta que se distribuya de manera uniforme. L??vese las dimitry antes y despu??s de tocar danita medicamento. L??vese las dimitry despu??s de utilizar danita medicamento, a menos que las dimitry formen parte de la hollis tratada. Informe a major m??dico y a major farmac??utico acerca de todos los medicamentos que usa. Mesita incluye medicamentos con y sin receta m??dica, vitaminas y medicamentos a base de hierbas. Puede dejar de al danita medicamento si ya no tiene s??ntomas. Esta medicina est?? disponible para venta terrance y no se requiere gera receta m??dica. No congele el medicamento. ?? Precauciones Informe a major m??dico y a major farmac??utico si alguna vez gallardo tenido gera reacci??n al??rgica a un medicamento. No use el medicamento m??s veces de lo indicado. Se desconoce si danita medicamento pasa a la leche materna. Consulte a major m??dico antes de amamantar. Hallie el embarazo, danita medicamento solo debe usarse cuando sea claramente necesario. Hable con major m??dico acerca de los riesgos y beneficios. Inf??rmele a todos mackenzie m??dicos y dentistas que usted usa danita medicamento antes de que lo atiendan. No empiece ni deje de al otros medicamentos sin hablar juan con el m??dico o farmac??utico. Informe a major m??dico si mackenzie s??ntomas no mejoran o si empeoran. ?? Efectos Secundarios La siguiente es gera lista de algunos efectos secundarios comunes de danita medicamento. Hable con el m??dico para saber qu?? debe hacer en aryan de tener estos u otros efectos secundarios. ??? sensaci??n de ardor o aguijonazo ??? piel reseca ??? enrojecimiento, ardor o picaz??n en la piel ??? cambio del color de la piel ??? irritaci??n de la piel donde se aplica la medicina ??? adelgazamiento de la piel Algunas personas podr??an tener reacciones al??rgicas a danita medicamento. Entre los s??ntomas pueden incluirse: dificultad para respirar, erupci??n en la piel, comez??n, hinchaz??n o mareos intensos.Si nota algunos de estos s??ntomas, busque asistencia m??dica r??pidamente. ?? Extra Hable con major m??dico, enfermero o farmac??utico si tiene alguna pregunta acerca de danita medicamento. ?? [email or web address] NOTA IMPORTANTE: En danita documento hay gera explicaci??n breve sobre c??mo usar el medicamento, perono incluye todo lo que hay que saber acerca del medicamento. Major m??dico o major farmac??utico podr??a suministrarle otros documentos acerca de major medicamento. Comun??quese con ellos si tiene alguna pregunta. Siga siempre mackenzie consejos. Gera descripci??n m??s completa de danita medicamento est?? disponibleen ingl??s. Escanee danita c??digo en major tel??fono inteligente o en major tableta, o use la direcci??n web que aparece a continuaci??n. Tambi??n puede pedirle a major farmac??utico gera copia impresa. Si tiene alguna pregunta, h??gasela a major farmac??utico. La exhibici??n y el uso de esta informaci??n sobre f??rmacos est?? sujeta a los T??rminos de Uso. Copyright(c) 2022 [employer] ?? 7606-9263 [employer]. All rights reserved. This information is not intended as a substitute for professional medical care. Always follow your healthcare professional's instructions. ?? * Cathy MCDUFFIE, Tiana Mason: PERFORM Event Display: Patient Education Leaflets Authored Date: [id number] Heat Rash (Adult) ?? [id number] Sarpullido por calor (adulto) El sarpullido por calor es la irritaci??n de la piel que se produce cuando el sudor queda atrapado en la piel. Tambi??n se conoce bladimir calor espinoso, sarpullido por sudor o miliaria. El sarpullido aparece en la piel en forma de protuberancias arlette??as de color henriquez y, a veces, en forma de ampollas arlette??as. Puede causar picaz??n. Puede causar un tipo de dolor punzante. En los adultos, el sarpullido por calor se encuentra principalmente en ??reas sudorosas, bladimir el valeria, las axilas, los pliegues de los codos, debajo de los senos y en la josh. Ocurre con mayor frecuencia en lugares con climas calurosos y h??medos, despu??s de un ejercicio sudoroso o cuando viste lauri ropa. El sarpullido suele desaparecer por s?? solo y no requiere atenci??n m??dica. Aplicar fr??o sobre la piel es la mejor manera de aliviar los s??ntomas. Cuidados en el hogar Pruebe estos consejos en casa: ??? B?rosa con agua tibia y use un jab??n suave. Deje que la piel se seque al aire. Puede colocar gera toalla empapada con agua fr??a sobre la hollis afectada. ??? No serasque el sarpullido. Rascarse puede demorar la cicatrizaci??n. Tambi??n puede causar gera infecci??n. ??? No use pomadas sobre la piel. Estas no mejoran ni previenen el sarpullido por calor. Las pomadas tienden a mantener la piel caliente y a bloquear los poros. ??? Mantenga la piel fresca y seca. Use aire acondicionado o ventiladores. V??stase con ropa holgada y suave de algod??n. ?? Atenci??n de seguimiento [employer] consultas de seguimiento con el proveedor de atenci??n m??dica seg??n le indiquen. ?? Cu??ndo buscar atenci??n m??dica Llame de inmediato al proveedor de atenci??n m??dica si nota alguno de los siguientes s??ntomas: ??? Escalofr??os o fiebre de 100.4?F (38?C) o m??s, o seg??n le indique el proveedor ??? Sensaci??n de mareo, n??useas o confusi??n ??? Sarpullido que cambia de color a ihsan oscuro ??? Propagaci??n del sarpullido ??? Ganglios linf??ticos inflamados en la axila, el valeria o la josh ??? L??quido maloliente que sale del sarpullido ? [employer]. All rights reserved. This information is not intended as a substitute for professional medical care. Always follow your healthcare professional's instructions. ?? Patient Care team information Care Team Personnel Name: Not on Staff, PCP Position: [facility] Physician (General Medicine) Member Role: PCP Name: Bernardo RN, Carol Position: [facility] ED RN W/OE and Tasks Member Role: Patient Care Provider Name: Rocío Brunson Position: [facility] ED TA [facility] Name: Gordon Shrestha MD Position: [facility] ED Medicine MD Member Role: Admitting Physician Address: Address: [address] [place] [address] Name: Tiana García Position: [facility] Associate Professional Member Role: Physician Mill Oiler Address: Address: [address] [place] [address] Care Team Related Persons Name: AMBER PEREZ Address: [address] [place] [address] Name: SUZY BRICENO Name: AMAURY IRAHETA Address: [address] Address: home [address] [place] [address] [place]
--- OUTSIDE RECORDS SUMMARY | 2023-02-16 10:55 | XMS_ITS | Continuity of Care Document ---
Author Name Unknown Organization [facility] Address [address] [place] [address]- Care Team Providers Care Paper Folder Name Role Phone Not on Staff, PCP Primary Care Physician Unavail able Encounter [facility] Date(s): 10/27/21 - 11/26/21 [facility] [address] [address]- Allergies, Adverse Reactions, Alerts No Known Allergies Medications Multivitamins By Mouth, Daily, 0 Refills, Maintenance, 10/26/21 16:32:00 EDT, Partial fill upon patient request if the prescription is for a schedule II opioid drug. Start Date: 10/26/21 Status: Ordered Multivitamins with Folic Acid 1 mg oral tablet 1 tablet, By Mouth, Daily, # 90 tablet, 2 Refills, Maintenance, 11/08/21 9:44:00 EDT, [facility], Partial fill upon patient request if the prescription is for a schedule II opioid drug., 1 tablet By Mouth Daily, 159, cm, 11/08/21 9:14:00... Start Date: 11/08/21 Status: Ordered Prometrium 200 mg oral capsule = 200 mg, Vaginally, Daily at bedtime, # 60 tablet, 3 Refills, Acute 03/25/22 16:35:00 EDT, 11/11/21 16:34:00 EDT, [facility], Partial fill upon patient request if the prescription is for a schedule II opioid drug., 159, cm, 11/11/21 15:... Start Date: 11/11/21 Stop Date: 03/25/22 Status: Ordered Problem List Condition Effective Dates Status Health Status Inform ant History of delivery, currently (Confirmed) Active Uses Tanzanian as primary spok en language(Confirmed) Active Obese class II(Confirmed) Active Social History Social History Type Response Smoking Status Never (less than 100 in lifetime) entered on: 11/08/21 Sex
--- OUTSIDE RECORDS SUMMARY | 2023-02-16 10:55 | XMS_ITS | Continuity of Care Document ---
Author Name Unknown Organization [facility] Address [address] [place] [address]- Care Team Providers Care Steam Room Attendant Name Role Phone Not on Staff, PCP Primary Care Physician Unavail able Encounter [facility] Date(s): 11/11/21 - 02/12/[address] [address] Attending Physician: Not on Staff, Attending MD Allergies, Adverse Reactions, Alerts No Known Allergies Immunizations Given and Recorded Vaccine Date Status Refusal Reason tetanus/diphtheria/pertussis, acel(Tdap) 02/10/22 Given Medications Famotidine 0 Refills, Maintenance, 02/10/22 16:14:00 EDT, Partial fill upon patient request if the prescription is for a schedule II opioid drug. Start Date: 02/10/22 Status: Ordered MiraLax oral powder for reconstitution = 17 Gm, By Mouth, Daily, dissolve in water before taking, # 255 Gm, 0 Refills, Maintenance, 01/23/22 18:37:00 EDT, REC Powder, [id number], Partial fill upon patient request if the prescription is for a schedule II opioid drug., 17 Gm... Start Date: 01/23/22 Status: Ordered oxyCODONE 5 mg oral tablet 5 mg, 1, tablet, By Mouth, Every 6 hours, PRN, # 10 tablet, Refills 0, Tot. Refills 0, Acute 02/14/22 22:11:00 EDT, as needed for pain, 02/07/22 22:10:00 EDT, Route to Pharmacy Electronically, [id number], Partial fill upon patient request, 160... Start Date: 02/07/22 Stop Date: 02/14/22 Status: Ordered Multivitamins with Folic Acid 1 mg oral tablet 1 tablet, By Mouth, Daily, # 90 tablet, 2 Refills, Maintenance, 11/08/21 9:44:00 EDT, [facility], Partial fill upon patient request if the prescription is for a schedule II opioid drug., 1 tablet By Mouth Daily, 159, cm, 11/08/21 9:14:00... Start Date: 11/08/21 Status: Ordered Tylenol 325 mg oral tablet 650 mg, 2, tablet, By Mouth, Every 4 hours, PRN, # 40 tablet, Refills 0, Tot. Refills 0, Maintenance, for pain, 01/23/22 18:36:00 EDT, Route to Pharmacy Electronically, [facility][id number], Partial fill upon patient request if the prescription... Start Date: 01/23/22 Status: Ordered Problem List Condition Effective Dates Status Health Status Inform ant GERD (gastroesophageal reflu x disease)(Confirmed) Active History of delivery, currently (Confirmed) Active Uses Iranian as primary spok en language(Confirmed) Active Obese class II(Confirmed) Active (Confirmed) Active Social History Social History Type Response Smoking Status Never (less than 100 in lifetime) entered on: 11/08/21 Sex
--- OUTSIDE RECORDS SUMMARY | 2023-02-16 10:55 | XMS_ITS | Continuity of Care Document ---
Author Name Unknown Organization [facility] Address [address] [place] [address]- Care Team Providers Care Insurance Agent Name Role Phone Not on Staff, PCP Primary Care Physician Unavail able [place] [facility] [place] - 10/26/[address] [address] Discharge Disposition: A-D/C Home Attending Physician: Ceferino An MD Admitting Physician: Ceferino An MD Referring Physician: Ceferino An MD Allergies, Adverse Reactions, Alerts No Known Allergies Medications Multivitamins By Mouth, Daily, 0 Refills, Maintenance, 10/26/21 16:32:00 EDT, Partial fill upon patient request if the prescription is for a schedule II opioid drug. Start Date: 10/26/21 Status: Ordered Vital Signs Most recent to oldest [Reference Range]: 1 Oxygen Saturation [94-100 %] 100 % (10/26/21 3:35 PM) Pulse Rate [55-90 bpm] 75 bpm (10/26/21 3:35 PM) Blood Pressure [90-138/55-84 mm Hg] 125/ 80mm Hg (10/26/21 3:35 PM) Respiratory Rate [16-30 br/min] 20 br/mi n (10/26/21 3:35 PM) Temperature [96.8-100.4 DegF] 98 DegF (10/26/21 3:35 PM) Temperature Route Oral (10/26/21 3:35 PM)
--- OUTSIDE RECORDS SUMMARY | 2023-02-16 10:55 | XMS_ITS | Continuity of Care Document ---
Author Name Unknown Organization [facility] Address [address] [place] [address]- Care Team Providers Care Banquet Manager Name Role Phone Not on Staff, PCP Primary Care Physician Unavail able [place] [facility] [place]15[place] - 12/15/[address] [address]- Allergies, Adverse Reactions, Alerts No Known Allergies Medications Multivitamins By Mouth, Daily, 0 Refills, Maintenance, 10/26/21 16:32:00 EDT, Partial fill upon patient request if the prescription is for a schedule II opioid drug. Start Date: 10/26/21 Status: Ordered Multivitamins with Folic Acid 1 mg oral tablet 1 tablet, By Mouth, Daily, # 90 tablet, 2 Refills, Maintenance, 11/08/21 9:44:00 EDT, [facility], Partial fill upon patient request if the prescription is for a schedule II opioid drug., 1 tablet By Mouth Daily, 159, cm, 11/08/21 9:14:00... Start Date: 11/08/21 Status: Ordered Prometrium 200 mg oral capsule = 200 mg, Vaginally, Daily at bedtime, # 60 tablet, 3 Refills, Acute 03/25/22 16:35:00 EDT, 11/11/21 16:34:00 EDT, [facility], Partial fill upon patient request if the prescription is for a schedule II opioid drug., 159, cm, 11/11/21 15:... Start Date: 11/11/21 Stop Date: 03/25/22 Status: Ordered Problem List Condition Effective Dates Status Health Status Inform ant History of delivery, currently (Confirmed) Active Uses Icelandic as primary spok en language(Confirmed) Active Obese class II(Confirmed) Active Social History Social History Type Response Smoking Status Never (less than 100 in lifetime) entered on: 11/08/21 Sex
--- OUTSIDE RECORDS SUMMARY | 2023-02-16 10:55 | XMS_ITS | Continuity of Care Document ---
Author Name Unknown Organization [facility] Address [address] [place] [address]- Care Team Providers Care Inspector Balance Wheel Motion Name Role Phone Not on Staff, PCP Primary Care Physician Unavail able Encounter [facility] Date(s): 11/02/21 [facility] [address] [address]- Allergies, Adverse Reactions, Alerts No Known Allergies Medications Multivitamins By Mouth, Daily, 0 Refills, Maintenance, 10/26/21 16:32:00 EDT, Partial fill upon patient request if the prescription is for a schedule II opioid drug. Start Date: 10/26/21 Status: Ordered Multivitamins with Folic Acid 1 mg oral tablet 1 tablet, By Mouth, Daily, # 90 tablet, 2 Refills, Maintenance, 11/08/21 9:44:00 EDT, [facility], Partial fill upon patient request if the prescription is for a schedule II opioid drug., 1 tablet By Mouth Daily, 159, cm, 11/08/21 9:14:00... Start Date: 11/08/21 Status: Ordered Prometrium 200 mg oral capsule = 200 mg, Vaginally, Daily at bedtime, # 60 tablet, 3 Refills, Acute 03/25/22 16:35:00 EDT, 11/11/21 16:34:00 EDT, [facility], Partial fill upon patient request if the prescription is for a schedule II opioid drug., 159, cm, 11/11/21 15:... Start Date: 11/11/21 Stop Date: 03/25/22 Status: Ordered Problem List Condition Effective Dates Status Health Status Inform ant History of delivery, currently (Confirmed) Active Uses Pashto as primary spok en language(Confirmed) Active Obese class II(Confirmed) Active Social History Social History Type Response Smoking Status Never (less than 100 in lifetime) entered on: 11/08/21 Sex
--- OUTSIDE RECORDS SUMMARY | 2023-02-16 10:55 | XMS_ITS | Continuity of Care Document ---
Author Name Unknown Organization [facility] Address [address] [place] [address]- Care Team Providers Care Temporary Data Entry Clerk Name Role Phone Not on Staff, PCP Primary Care Physician Unavail able [place] [facility]): 11/02/21 - 12/02/21 [facility] [address] [address]- Allergies, Adverse Reactions, Alerts No Known Allergies Medications Multivitamins By Mouth, Daily, 0 Refills, Maintenance, 10/26/21 16:32:00 EDT, Partial fill upon patient request if the prescription is for a schedule II opioid drug. Start Date: 10/26/21 Status: Ordered Multivitamins with Folic Acid 1 mg oral tablet 1 tablet, By Mouth, Daily, # 90 tablet, 2 Refills, Maintenance, 11/08/21 9:44:00 EDT, [facility], Partial fill upon patient request if the prescription is for a schedule II opioid drug., 1 tablet By Mouth Daily, 159, cm, 11/08/21 9:14:00... Start Date: 11/08/21 Status: Ordered Prometrium 200 mg oral capsule = 200 mg, Vaginally, Daily at bedtime, # 60 tablet, 3 Refills, Acute 03/25/22 16:35:00 EDT, 11/11/21 16:34:00 EDT, [facility], Partial fill upon patient request if the prescription is for a schedule II opioid drug., 159, cm, 11/11/21 15:... Start Date: 11/11/21 Stop Date: 03/25/22 Status: Ordered Problem List Condition Effective Dates Status Health Status Inform ant History of delivery, currently (Confirmed) Active Uses Portuguese as primary spok en language(Confirmed) Active Obese class II(Confirmed) Active Social History Social History Type Response Smoking Status Never (less than 100 in lifetime) entered on: 11/08/21 Sex
--- OUTSIDE RECORDS SUMMARY | 2023-02-16 10:56 | XMS_ITS | Continuity of Care Document ---
Author Name Unknown Organization [facility] ter Address [address] [place] [id number]- Care Team Providers Care Cloth Packer Name Role Phone Not on Staff, PCP Primary Care Physician Unavail able Encounter [facility] [place] Date(s): 01/21/22 - 01/23/[address] [address] Discharge Disposition: A-D/C Home Attending Physician: Jesusita Blankenship MD Admitting Physician: Jesusita Blankenship MD Referring Physician: Jesusita Blankenship MD Allergies, Adverse Reactions, Alerts No Known Allergies Medications cefpodoxime 200 mg oral tablet 1 tablet = 200 mg, By Mouth, Every 12 hours, for 7 days, # 14 tablet, 0 Refills, Acute 01/30/22 18:38:00 EDT, 01/23/22 18:38:00 EDT, Tablet, [facility] #[id number], Partial fill upon patient request if the prescription is for a schedule II opioid... Start Date: 01/23/22 Stop Date: 01/30/22 Status: Ordered MiraLax oral powder for reconstitution = 17 Gm, By Mouth, Daily, dissolve in water before taking, # 255 Gm, 0 Refills, Maintenance, 01/23/22 18:37:00 EDT, REC Powder, [facility] #[id number], Partial fill upon patient request if the prescription is for a schedule II opioid drug., 17 Gm... Start Date: 01/23/22 Status: Ordered oxyCODONE 5 mg oral tablet 5 mg, Tablet, By Mouth, Every 4 hours, PRN for Pain , Mild, Routine, 01/23/22 8:06:00 EDT Start Date: 01/23/22 Stop Date: 01/24/22 Status: Discontinued oxyCODONE 5 mg oral tablet 5 mg, 1, tablet, By Mouth, Every 6 hours, PRN, # 20 tablet, Refills 0, Tot. Refills 0, Acute 01/29/22 18:38:00 EDT, as needed for pain, 01/23/22 18:36:00 EDT, Route to Pharmacy Electronically, [id number], Partial fill upon patient req... Start Date: 01/23/22 Stop Date: 01/29/22 Status: Ordered oxyCODONE 5 mg oral tablet 5 mg, 1, tablet, By Mouth, Every 6 hours, PRN, # 10 tablet, Refills 0, Tot. Refills 0, Maintenance,as needed for pain, 01/20/22 18:46:00 EDT, Route to Pharmacy Electronically, [id number], Partial fill upon patient request if the prescri... Start Date: 01/20/22 Status: Ordered Multivitamins By Mouth, Daily, 0 Refills, Maintenance, 10/26/21 16:32:00 EDT, Partial fill upon patient request if the prescription is for a schedule II opioid drug. Start Date: 10/26/21 Status: Ordered Multivitamins with Folic Acid 1 mg oral tablet 1 tablet, By Mouth, Daily, # 90 tablet, 2 Refills, Maintenance, 11/08/21 9:44:00 EDT, [facility], Partial fill upon patient request if the prescription is for a schedule II opioid drug., 1 tablet By Mouth Daily, 159, cm, 11/08/21 9:14:00... Start Date: 11/08/21 Status: Ordered Prometrium 200 mg oral capsule = 200 mg, Vaginally, Daily at bedtime, # 60 tablet, 3 Refills, Acute 03/25/22 16:35:00 EDT, 11/11/21 16:34:00 EDT, [facility], Partial fill upon patient request if the prescription is for a schedule II opioid drug., 159, cm, 11/11/21 15:... Start Date: 11/11/21 Stop Date: 03/25/22 Status: Ordered Tylenol 325 mg oral tablet 650 mg, 2, tablet, By Mouth, Every 4 hours, PRN, # 40 tablet, Refills 0, Tot. Refills 0, Maintenance, for pain, 01/23/22 18:36:00 EDT, Route to Pharmacy Electronically, [facility] #[id number], Partial fill upon patient request if the prescription... Start Date: 01/23/22 Status: Ordered Tylenol 325 mg oral tablet 975 mg, Tablet, By Mouth, Every 6 hours, PRN for Pain , Mild, Routine, 01/21/22 23:58:00 EDT Start Date: 01/21/22 Stop Date: 01/24/22 Status: Discontinued Zofran 4 mg oral tablet 1 tablet = 4 mg, By Mouth, Every 6 hours, PRN Nausea & Vomiting, # 12 tablet, 0 Refills, Acute 01/29/22 18:38:00 EDT, 01/23/22 18:37:00 EDT, Tablet, [facility] #[id number], Partial fill uponpatient request if the prescription is for a schedule I... Start Date: 01/23/22 Stop Date: 01/29/22 Status: Ordered Zofran 4 mg oral tablet 1 tablet = 4 mg, By Mouth, 3 times a day, PRN Nausea, # 12 tablet, 5 Refills, Maintenance, 01/20/2218:46:00 EDT, [facility], Partial fill upon patient request if the prescription is for a schedule II opioid drug., 159, cm, 12/31/21 16:3... Start Date: 01/20/22 Status: Ordered Problem List Condition Effective Dates Status Health Status Inform ant GERD (gastroesophageal reflu x disease)(Confirmed) Active History of delivery, currently (Confirmed) Active Uses Hebrew as primary spok en language(Confirmed) Active Obese class II(Confirmed) Active Results Orders for Microbiology Reports Name Date Urine Culture (Culture Urine) 01/21/22 Blood Culture 01/21/22 Blood Culture #2 01/21/22 Microbiology Reports TEST:Blood Culture STATUS:Unauthenticated BODY SITE: SOURCE:Blood COLLECTED DATE/TIME:01/21/22 4:30 PM Blood Culture SPECIMEN DESCRIPTION : BLOOD R ARM SPECIAL REQUESTS : NONE CULTURE : NO GROWTH AFTER 48 HOURS REPORT STATUS : PRELIMINARY REPORT TEST:Blood Culture, Second Order STATUS:Unauthenticated BODY SITE: SOURCE:Blood COLLECTED DATE/TIME:01/21/22 4:30 PM Blood Culture, Second Order SPECIMEN DESCRIPTION : BLOOD R HAND SPECIAL REQUESTS : NONE CULTURE : NO GROWTH AFTER 48 HOURS REPORT STATUS : PRELIMINARY REPORT TEST:Urine Culture STATUS:Auth (Verified) BODY SITE: SOURCE:TY COLLECTED DATE/TIME:01/21/22 3:00 PM Urine Culture SPECIMEN DESCRIPTION : BLADDER SPECIAL REQUESTS : NONE CULTURE : Mixed bacterial luciano, characteristic of urogenital contamination. Please consult laboratory ([id number]) within 24 hours of receipt of result if more definitive studies may be clinically indicated. REPORT STATUS : FINAL 01/23/2022 Vital Signs Most recent to oldest [Reference Range]: 1 2 3 Height 160 cm (01/23/22 9:28 AM) 160 cm (01/22/22 11:19 AM) 160 cm (01/21/22 8:48 AM) Weight 94 kg (01/22/22 11:19 AM) 94 kg (01/21/22 8:48 AM) 94.5 kg (01/20/22 11:54 PM) Oxygen Saturation [94-100 %] 98 % (01/23/22 9:28 AM) 98 % (01/23/22 6:04 AM) 97 % (01/23/22 2:10 AM) Pulse Rate [55-90 bpm] 71 bpm (01/23/22 9:28 AM) 94 bpm *H* (01/22/22 11:19 AM) 91 bpm *H* (01/21/22 8:48 AM) Body Mass Index [18.5-24.99] 36.72 *>HHI* (01/22/22 11:19 AM) 36.72 *>HHI* (01/21/22 8:48 AM) Blood Pressure [90-138/55-84 mm Hg] 101/52mm Hg (01/23/22 2:40 PM) 96/42mm Hg (01/23/22 9:28 AM) 101/56mm Hg (01/23/22 6:04 AM) Respiratory Rate [16-30 br/min] 16 br/min (01/23/22 3:38 PM) 16 br/min (01/23/22 2:38 PM) 16 br/min (01/23/22 12:45 PM) Temperature [96.8-100.4 DegF] 98.0 DegF (01/23/22 2:40 PM) 98.1 DegF (01/23/22 9:28 AM) 97.9 DegF (01/23/22 6:04 AM) Liters per Minute 6 L/min (01/22/22 1:45 PM) Mode of Delivery (Oxygen) Room air (01/23/22 9:28 AM) Room air (01/23/22 6:04 AM) Room air (01/23/22 2:10 AM) Blood pressure sites Arm, right (01/23/22 9:28 AM) Arm, left (01/23/22 6:04 AM) Arm, right (01/23/22 2:10 AM) Temperature Route Oral (01/23/22 9:28 AM) Oral (01/23/22 6:04 AM) Oral (01/23/22 2:10 AM) Dry Weight 94 kg (01/21/22 8:48 AM) 94.5 kg (01/20/22 11:54 PM) Weight Obtained Via Standing scale (01/20/22 11:54 PM) Dry Weight Obtained Via Standing scale (01/20/22 11:54 PM) Social History Social History Type Response Smoking Status Never (less than 100 in lifetime) entered on: 11/08/21 Sex
--- OUTSIDE RECORDS SUMMARY | 2023-02-16 10:56 | XMS_ITS | Continuity of Care Document ---
Author Name Unknown Organization [facility] ter Address [address] [place] [id number]- Care Team Providers Care Spot Machine Operator Name Role Phone Not on Staff, PCP Primary Care Physician Unavail able Encounter [facility] [place] Date(s): 03/18/22 - 03/18/[address] [id number] Discharge Disposition: A-D/C Home Attending Physician: Pepe Rebolledo MD Admitting Physician: Pepe Rebolledo MD Referring Physician: Pepe Rebolledo MD Allergies, Adverse Reactions, Alerts No Known Allergies Immunizations Given and Recorded Vaccine Date Status Refusal Reason tetanus/diphtheria/pertussis, acel(Tdap) 02/10/22 Given Medications MiraLax oral powder for reconstitution = 17 Gm, By Mouth, Daily, dissolve in water before taking, # 255 Gm, 0 Refills, Maintenance, 01/23/22 18:37:00 EDT, REC Powder, [facility] #[id number], Partial fill upon patient request if the prescription is for a schedule II opioid drug., 17 Gm... Start Date: 01/23/22 Status: Ordered Multivitamins with Folic Acid 1 mg oral tablet 1 tablet, By Mouth, Daily, # 90 tablet, 2 Refills, Maintenance, 11/08/21 9:44:00 EDT, [facility], Partial fill upon patient request if the prescription is for a schedule II opioid drug., 1 tablet By Mouth Daily, 159, cm, 11/08/21 9:14:00... Start Date: 11/08/21 Status: Ordered progesterone 25 mg vaginal suppository 1 supp = 25 mg, Vaginally, Daily, 0 Refills, Maintenance, 03/17/22 12:21:00 EDT, Partial fill upon patient request if the prescription is for a schedule II opioid drug. Start Date: 03/17/22 Status: Ordered Tylenol 325 mg oral tablet 650 mg, 2, tablet, By Mouth, Every 4 hours, PRN, # 40 tablet, Refills 0, Tot. Refills 0, Maintenance, for pain, 01/23/22 18:36:00 EDT, Route to Pharmacy Electronically, [facility] #[id number], Partial fill upon patient request if the prescription... Start Date: 01/23/22 Status: Ordered Problem List Condition Effective Dates Status Health Status Inform ant GERD (gastroesophageal reflu x disease)(Confirmed) Active History of delivery, currently (Confirmed) Active Uses Estonian as primary spok en language(Confirmed) Active Obese class II(Confirmed) Active (Confirmed) Active Vital Signs Most recent to oldest [Reference Range]: 1 2 3 Height 160 cm (03/18/22 9:54 AM) 160 cm (03/17/22 12:33 PM) Weight 96.8 kg (03/18/22 9:54 AM) 96 kg (03/17/22 12:33 PM) Oxygen Saturation [94-100 %] 100 % (03/18/22 1:00 PM) 100 % (03/18/22 12:45 PM) 100 % (03/18/22 12:30 PM) Pulse Rate [55-90 bpm] 96 bpm *H* (03/18/22 9:54 AM) Body Mass Index [18.5-24.99 kg/m2] 37.81 kg/m2 *>HHI* (03/18/22 9:54 AM) 37.5 kg/m2 *>HHI* (03/17/22 12:33 PM) Blood Pressure [90-138/55-84 mm Hg] 131/92mm Hg (03/18/22 1:00 PM) 122/79mm Hg (03/18/22 12:45 PM) 136/79mm Hg (03/18/22 12:30 PM) Respiratory Rate [16-30 br/min] 17 br/min (03/18/22 1:00 PM) 17 br/min (03/18/22 12:45 PM) 17 br/min (03/18/22 12:30 PM) Temperature [96.8-100.4 DegF] 98.0 DegF (03/18/22 1:00 PM) 97.3 DegF (03/18/22 11:30 AM) 97.7 DegF (03/18/22 9:54 AM) Liters per Minute 6 L/min (03/18/22 11:45 AM) 6 L/min (03/18/22 11:30 AM) Mode of Delivery (Oxygen) Room air (03/18/22 1:45 PM) Room air (03/18/22 1:00 PM) Room air (03/18/22 12:45 PM) Blood pressure sites Arm, right (03/18/22 1:00 PM) Arm, right (03/18/22 12:45 PM) Arm, right (03/18/22 12:30 PM) Temperature Route Temporal (03/18/22 1:00 PM) Temporal (03/18/22 11:30 AM) Temporal (03/18/22 9:54 AM) Dry Weight 96.8 kg (03/18/22 9:54 AM) 96 kg (03/17/22 12:33 PM) Weight Obtained Via Standing scale (03/18/22 9:54 AM) Patient/family stated (03/17/22 12:33 PM) Dry Weight Obtained Via Standing scale (03/18/22 9:54 AM) Patient/family stated (03/17/22 12:33 PM) Social History Social History Type Response Smoking Status Never (less than 100 in lifetime) entered on: 11/08/21 Sex Care Team Personnel Name: Not on Staff, PCP
--- OUTSIDE RECORDS SUMMARY | 2023-02-16 10:56 | XMS_ITS | Continuity of Care Document ---
Author Name Unknown Organization [facility] Address [address] [place] [address]- Care Team Providers Care Impersonator Character Name Role Phone Not on Staff, PCP Primary Care Physician Unavail able Encounter [facility] [place] Date(s): 02/25/22 - 05/29/[address] [id number] Attending Physician: Not on Staff, Attending MD Allergies, Adverse Reactions, Alerts No Known Allergies Immunizations Given and Recorded Vaccine Date Status Refusal Reason influenza virus vaccine, inactivated 04/20/22 Give n Measles/Mumps/Rubella Virus Vaccine 04/19/22 Given tetanus/diphtheria/pertussis, acel(Tdap) 02/10/22 Given Medications Multivitamins with Folic Acid 1 mg oral tablet 1 tablet, By Mouth, Daily, # 90 tablet, 2 Refills, Maintenance, 03/25/22 16:52:00 EDT, [facility] #[id number], Partial fill upon patient request if the prescription is for a schedule II opioid drug., 1 tablet By Mouth Daily, 160, cm, 03/25/22 16:... Start Date: 03/25/22 Status: Ordered Problem List Condition Confirmation Course Effective Dates Status Health St atus Informant GERD (gastroesophageal reflux disease) Confirmed Active Uses Angolan as primary spoken language Confirmed Active Severe obesity Confirmed Active Social History Social History Type Response Smoking Status Never (less than 100 in lifetime) entered on: 11/08/21 Sex Patient Care team information Care Team Personnel Name: Not on Staff, PCP Position: S Physician (General Medicine) Member Role: PCP Care Team Related Persons Name: AMBER PEREZ Address: home [address] [place] [address] Name: SUZY BRICENO Name: AMAURY IRAHETA Address: [address] Address: [address]
--- OUTSIDE RECORDS SUMMARY | 2023-02-16 10:56 | XMS_ITS | Continuity of Care Document ---
Author Name Unknown Organization [facility] Address [address] [place] [id number]- Care Team Providers Care Cryogenic Transport Driver Name Role Phone Not on Staff, PCP Primary Care Physician Unavail able Encounter [facility] [place] Date(s): 06/07/22 - 07/13/[address] [address] Attending Physician: Not on Staff, Attending MD [...] 0 Refills, Maintenance, 06/07/22 17:11:00 EST, Tablet, [facility] #[id number], Partial fill upon patient request if the prescription is for a schedule II opioid drug.... Start Date: 06/07/22 Status: Ordered Problem List Condition Confirmation Course Effective Dates Status Health St atus Informant GERD (gastroesophageal reflux disease) Confirmed Active Uses Thai as primary spoken language Confirmed Active Obese class II Confirmed Active Social History Social History Type Response Smoking Status Never (less than 100 in lifetime) entered on: 11/08/21 Sex Patient Care team information Care Team Personnel Name: Not on Staff, PCP Position: S Physician (General Medicine) Member Role: PCP Care Team Related Persons Name: AMBER PEREZ Address: [address] [place] [address] Name: SUZY BRICENO Name: AMAURY IRAHETA Address: [address] Address: home [address] [place] [id number]
--- OUTSIDE RECORDS SUMMARY | 2023-02-16 10:56 | XMS_ITS | Continuity of Care Document ---
Author Name Unknown Organization [facility] Address [address] [place] [address]- Care Team Providers Care Counter Manager Name Role Phone Not on Staff, PCP Primary Care Physician Unavail able Encounter [facility] [place] Date(s): 06/13/22 - 07/13/[address] [address] Attending Physician: Lawanda Johnson Admitting Physician: Lawanda Johnson Referring Physician: Lawanda Johnson Referring Physician: Domitila Bain Allergies, Adverse Reactions, Alerts No Known Allergies Immunizations Given and Recorded Vaccine Date Status Refusal Reason influenza virus vaccine, inactivated 04/20/22 Give n Measles/Mumps/Rubella Virus Vaccine 04/19/22 Given tetanus/diphtheria/pertussis, acel(Tdap) 02/10/22 Given Medications docusate sodium 100 mg oral tablet 1 tablet = 100 mg, By Mouth, 2 times a day, PRN for constipation, # 100 tablet, 0 Refills, Maintenance, 06/07/22 17:11:00 EST, Tablet, [facility] #[id number], Partial fill upon patient request if the prescription is for a schedule II opioid drug.... Start Date: 06/07/22 Status: Ordered Problem List Condition Confirmation Course Effective Dates Status Health St atus Informant GERD (gastroesophageal reflux disease) Confirmed Active Uses Lithuanian as primary spoken language Confirmed Active Obese class II Confirmed Active Social History Social History Type Response Smoking Status Never (less than 100 in lifetime) entered on: 11/08/21 Sex Patient Care team information Care Team Personnel Name: Not on Staff, PCP Position: S Physician (General Medicine) Member Role: PCP Care Team Related Persons Name: AMBER PEREZ Address: [address] [place] [address] Name: SUZY BRICENO Name: AMAURY IRAHETA Address: [address] Address: [address] [place] [address]
--- OUTSIDE RECORDS SUMMARY | 2023-02-16 10:56 | XMS_ITS | Continuity of Care Document ---
Author Name Unknown Organization [facility] Address [address] [place] [address]- Care Team Providers Care Lot Porter Name Role Phone Not on Staff, PCP Primary Care Physician Unavail able Encounter [facility] [place] Date(s): 01/20/22 - 01/20/[address] [address] Discharge Disposition: A-D/C Home Attending Physician: Barbara Senior MD Admitting Physician: Barbara Senior MD Referring Physician: Barbara Senior MD Allergies, Adverse Reactions, Alerts No Known Allergies Medications cefpodoxime 100 mg oral tablet 1 tablet = 100 mg, By Mouth, Every 12 hours, for 7 days, # 14 tablet, 0 Refills, Acute 01/27/22 18:46:00 EDT, 01/20/22 18:46:00 EDT, Tablet, [facility], Partial fill upon patient request if the prescription is for a schedule II opioid dr... Start Date: 01/20/22 Stop Date: 01/27/22 Status: Ordered Diflucan 150 mg oral tablet 1 tablet = 150 mg, By Mouth, Once, # 1 tablet, 0 Refills, Soft Stop, 01/20/22 18:46:00 EDT, Tablet,[facility], Partial fill upon patient request if the prescription is for a schedule II opioid drug., 159, cm, 12/31/21 16:32:00 EDT, .. Start Date: 01/20/22 Status: Ordered famotidine 10 mg oral tablet 1 tablet = 10 mg, By Mouth, Daily, # 30 tablet, 5 Refills, Maintenance, 12/31/21 17:08:00 EDT, Tablet, [facility], Partial fill upon patient request if the prescription is for a schedule II opioid drug., 159, cm, 12/31/21 16:32:00 EDT, H... Start Date: 12/31/21 Status: Ordered MorPHINE Inj 2 mg, Injection, IV Push Slowly, Once, PRN for Pain , Severe, STAT, 01/20/22 11:55:00 EDT Start Date: 01/20/22 Stop Date: 01/20/22 Status: Completed oxyCODONE 5 mg oral tablet 5 mg, Tablet, By Mouth, Once, PRN for Pain , Severe, STAT, 01/20/22 14:10:00 EDT Start Date: 01/20/22 Stop Date: 01/20/22 Status: Completed oxyCODONE 5 mg oral tablet 5 mg, 1, tablet, By Mouth, Every 6 hours, PRN, # 10 tablet, Refills 0, Tot. Refills 0, Maintenance,as needed for pain, 01/20/22 18:46:00 EDT, Route to Pharmacy Electronically, [id number], Partial fill upon patient request if the [...] tablet, 2 Refills, Maintenance, 11/08/21 9:44:00 EDT, [facility], Partial fill upon patient request if the prescription is for a schedule II opioid drug., 1 tablet By Mouth Daily, 159, cm, 11/08/21 9:14:00... Start Date: 11/08/21 Status: Ordered Prometrium 200 mg oral capsule = 200 mg, Vaginally, Daily at bedtime, # 60 tablet, 3 Refills, Acute 03/25/22 16:35:00 EDT, 11/11/21 16:34:00 EDT, [facility], Partial fill upon patient request if the prescription is for a schedule II opioid drug., 159, cm, 11/11/21 15:... Start Date: 11/11/21 Stop Date: 03/25/22 Status: Ordered Zofran 4 mg oral tablet 1 tablet = 4 mg, By Mouth, 3 times a day, PRN Nausea, # 12 tablet, 5 Refills, Maintenance, 01/20/2218:46:00 EDT, [facility], Partial fill upon patient request if the prescription is for a schedule II opioid drug., 159, cm, 12/31/21 16:3... Start Date: 01/20/22 Status: Ordered Problem List Condition Effective Dates Status Health Status Inform ant GERD (gastroesophageal reflu x disease)(Confirmed) Active History of delivery, currently (Confirmed) Active Uses Sri Lankan as primary spok en language(Confirmed) Active Obese class II(Confirmed) Active Vital Signs Most recent to oldest [Reference Range]: 1 2 3 Weight 94.8 kg (01/20/22 10:48 AM) Oxygen Saturation [94-100 %] 98 % (01/20/22 11:07 AM) Blood Pressure [90-138/55-84 mm Hg] 106/61mm Hg (01/20/22 4:58 PM) 118/59mm Hg (01/20/22 11:07 AM) Respiratory Rate [16-30 br/min] 18 br/min (01/20/22 2:14 PM) 18 br/min (01/20/22 12:09 PM) 18 br/min (01/20/22 11:07 AM) Temperature [96.8-100.4 DegF] 98.9 DegF (01/20/22 4:58 PM) 98.4 DegF (01/20/22 10:48 AM) Blood pressure sites Arm, left (01/20/22 11:07 AM) Temperature Route Oral (01/20/22 4:58 PM) Oral (01/20/22 10:48 AM) Dry Weight 94.8 kg (01/20/22 10:48 AM) Social History Social History Type Response Smoking Status Never (less than 100 in lifetime) entered on: 11/08/21 Sex
--- OUTSIDE RECORDS SUMMARY | 2023-02-16 10:56 | XMS_ITS | Continuity of Care Document ---
Author Name Unknown Organization [facility] Address [address] [place] [id number]- Care Team Providers Care Fixed Route Operator Name Role Phone Not on Staff, PCP Primary Care Physician Unavail able Encounter [facility] [place] Date(s): 03/14/22 - 04/13/[address] [address]- Allergies, Adverse Reactions, Alerts No Known Allergies Immunizations Given and Recorded Vaccine Date Status Refusal Reason tetanus/diphtheria/pertussis, acel(Tdap) 02/10/22 Given Medications Multivitamins with Folic Acid 1 mg oral tablet 1 tablet, By Mouth, Daily, # 90 tablet, 2 Refills, Maintenance, 03/25/22 16:52:00 EDT, [facility][id number], Partial fill upon patient request if the prescription is for a schedule II opioid drug., 1 tablet By Mouth Daily, 160, cm, 03/25/22 16:... Start Date: 03/25/22 Status: Ordered Problem List Condition Confirmation Course Effective Dates Status Health St atus Informant GERD (gastroesophageal reflux disease) Confirmed Active History of delivery, currently Confirmed Active Uses Portuguese as primary spoken language Confirmed Active Obese class II Confirmed Active Confirmed Active Social History Social History Type Response Smoking Status Never (less than 100 in lifetime) entered on: 11/08/21 Sex Patient Care team information Personnel Name: Not on Staff, PCP
--- OUTSIDE RECORDS SUMMARY | 2023-02-16 10:56 | XMS_ITS | Continuity of Care Document ---
Author Name Unknown Organization [facility] Jesika Fowler [facility] Address [address], [address], [place] [address]- Care Team Providers Care Tool Design Engineer Name Role Phone Not on Staff, PCP Primary Care Physician Unavail able Encounter [facility] Date(s): 11/13/21 - 12/13/21 [facility] [address] [place] [address]- Allergies, Adverse Reactions, Alerts No Known Allergies Medications Multivitamins By Mouth, Daily, 0 Refills, Maintenance, 10/26/21 16:32:00 EDT, Partial fill upon patient request if the prescription is for a schedule II opioid drug. Start Date: 10/26/21 Status: Ordered Multivitamins with Folic Acid 1 mg oral tablet 1 tablet, By Mouth, Daily, # 90 tablet, 2 Refills, Maintenance, 11/08/21 9:44:00 EDT, [facility], Partial fill upon patient request if the prescription is for a schedule II opioid drug., 1 tablet By Mouth Daily, 159, cm, 11/08/21 9:14:00... Start Date: 11/08/21 Status: Ordered Prometrium 200 mg oral capsule = 200 mg, Vaginally, Daily at bedtime, # 60 tablet, 3 Refills, Acute 03/25/22 16:35:00 EDT, 11/11/21 16:34:00 EDT, [facility], Partial fill upon patient request if the prescription is for a schedule II opioid drug., 159, cm, 11/11/21 15:... Start Date: 11/11/21 Stop Date: 03/25/22 Status: Ordered Problem List Condition Effective Dates Status Health Status Inform ant History of delivery, currently (Confirmed) Active Uses Monegasque as primary spok en language(Confirmed) Active Obese class II(Confirmed) Active Social History Social History Type Response Smoking Status Never (less than 100 in lifetime) entered on: 11/08/21 Sex
--- OUTSIDE RECORDS SUMMARY | 2023-02-16 10:56 | XMS_ITS | Continuity of Care Document ---
Author Name Unknown Organization [facility] Address [address] [place] [id number]- Care Team Providers Care Jammer Hooker Name Role Phone Not on Staff, PCP Primary Care Physician Unavail able Encounter [facility] Date(s): 03/24/22 - 04/23/[address] [id number] Allergies, Adverse Reactions, Alerts No Known Allergies Immunizations Given and Recorded Vaccine Date Status Refusal Reason influenza virus vaccine, inactivated 04/20/22 Give n Measles/Mumps/Rubella Virus Vaccine 04/19/22 Given tetanus/diphtheria/pertussis, acel(Tdap) 02/10/22 Given Medications Multivitamins with Folic Acid 1 mg oral tablet 1 tablet, By Mouth, Daily, # 90 tablet, 2 Refills, Maintenance, 03/25/22 16:52:00 EDT, [id number], Partial fill upon patient request if the prescription is for a schedule II opioid drug., 1 tablet By Mouth Daily, 160, cm, 03/25/22 16:... Start Date: 03/25/22 Status: Ordered Problem List Condition Confirmation Course Effective Dates Status Health St atus Informant GERD (gastroesophageal reflux disease) Confirmed Active Uses Citizen Of [place] as primary spoken language Confirmed Active Severe obesity Confirmed Active Social History Social History Type Response Smoking Status Never (less than 100 in lifetime) entered on: 11/08/21 Sex Patient Care team information Personnel Name: Not on Staff, PCP
--- OUTSIDE RECORDS SUMMARY | 2023-02-16 10:56 | XMS_ITS | Continuity of Care Document ---
Author Name Unknown Organization [facility] Jesika [email or web address] Address 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, [address] [place] [id number] Allergies, Adverse Reactions, Alerts No Known Allergies Medications famotidine 10 mg oral tablet 1 tablet = 10 mg, By Mouth, Daily, # 30 tablet, 5 Refills, Maintenance, 12/31/21 17:08:00 EDT, Tablet, [facility], Partial fill upon patient request if the prescription is for a schedule II opioid drug., 159, cm, 12/31/21 16:32:00 EDT, H... Start Date: 12/31/21 Status: Ordered metronidazole topical 0.75% gel with applicator 1 applicator, Vaginally, Daily at bedtime, for 5 days, # 70 Gm, 0 Refills, Acute 01/10/22 20:40:00 EDT, 01/05/22 20:40:00 EDT, Gel, [facility], Partial fill upon patient request if the prescription is for a schedule II opioid drug., 1 ap... Start Date: 01/05/22 Stop Date: 01/10/22 Status: Ordered Multivitamins By Mouth, Daily, 0 Refills, Maintenance, 10/26/21 16:32:00 EDT, Partial fill upon patient request if the prescription is for a schedule II opioid drug. Start Date: 10/26/21 Status: Ordered Multivitamins with Folic Acid 1 mg oral tablet 1 tablet, By Mouth, Daily, # 90 tablet, 2 Refills, Maintenance, 11/08/21 9:44:00 EDT, [facility], Partial fill upon patient request if the prescription is for a schedule II opioid drug., 1 tablet By Mouth Daily, 159, cm, 11/08/21 9:14:00... Start Date: 11/08/21 Status: Ordered Prometrium 200 mg oral capsule = 200 mg, Vaginally, Daily at bedtime, # 60 tablet, 3 Refills, Acute 03/25/22 16:35:00 EDT, 11/11/21 16:34:00 EDT, [facility], Partial fill upon patient request if the prescription is for a schedule II opioid drug., 159, cm, 11/11/21 15:... Start Date: 11/11/21 Stop Date: 03/25/22 Status: Ordered Problem List Condition Effective Dates Status Health Status Inform ant History of delivery, currently (Confirmed) Active Uses Turkish as primary spok en language(Confirmed) Active Obese class II(Confirmed) Active Social History Social History Type Response Smoking Status Never (less than 100 in lifetime) entered on: 11/08/21 Sex
== END 2023-02-16 11:05 | disposition home or self-care (01) ==
LOC: HO.HBS 10:53
PROVIDERS: Visit Provider Dietitian, Registered
DX: E66.01 Morbid (severe) obesity due to excess calories (principal)

== ENCOUNTER → 2023-02-16 10:53 | Outpatient (BNVA) | payer OTHER, SELFPAY | PROVIDERS: Visit Provider Dietitian, Registered | DX: E66.01 Morbid (severe) obesity due to excess calories (principal) | CPT/HCPCS: 97803 ==

== ENCOUNTER 2023-03-02 14:04 | Outpatient (AMB) | payer OTHER, SELFPAY ==
--- NOTE | 2023-03-02 14:08 | A.OFFVIS_ITS ---
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 She entered the surgical weight loss program here at [place] on 12/01/2022 with a weight of 231.2 lb/BMI of 41.4. At her December recheck, her weight it increased to 231.1 lb/BMI 41.6, however, she has continued to follow the current meal plan and is exercising by walking an hour 7 days a week and presents today at a weight of 212.6 lb/BMI 38.3. Meal plan: Premier, 1 scoop in 8 oz of almond milk, 2-3 shakes per day (she will sometime substitute for dinner if the choices aren't healthy), 2 fit crunch bars and dinner is 6 forks of protein with 6 forks of vegetable. The patient has 3 children at home and has no planned control at this time. The risks of unintended including small weight and vitamin deficiency related defects were discussed and the patient stated she would discuss it with her . GERD 2 GALLO 0 ESS 13 QOL 78 Pre op work up completed as follows: SWL classes:?01/31 BH appts: 01/[address] appts: 01/10 Cleared Labs: 12/13- low vit D being treated H. pylori: negative 6/16 CXR: 12/13 clear lungs EK/20 NSR ABD U/S: Hepatomegaly, NAFLD, 5mm GB polyp UGI: No HH, mild GERD PFSH Family History Mother TSH (thyroid-stimulating hormone deficiency) Father Diabetes Daughter No problems noted. Daughter No problems noted. Son Asthma Social History Alcohol intake: never Patient Tobacco Use Status: Never used Tobacco Review of Systems Const All systems reviewed & are unremarkable except as noted in HPI and below Reports as per HPI Physical Exam The patient is non-toxic & in good spirits NC/AT, PERRLA, EOMI Mood, affect & judgment all appear appropriate Sclera anicteric conjunctiva pink and moist Oropharynx is clear with no aphthous ulcers, Mallampati class 4, mucous membranes moist Neck is supple with no masses, adenopathy or bruits Heart is regular, normal S1-S2 no rubs or murmurs Lungs are clear and equal anteriorly with no audible wheezing, rubs or dullness to percussion Abdomen is obese with no demonstrable hernias. No HSM, rebound, rigidity, guarding, masses or bruits are present. Rectal exam is deferred Skin has good turgor and is free of rashes Extremities free of cyanosis clubbing edema Results Reviewed Results Reviewed: Labs 12/13/2022 Hb 14.0, N/N; wbc 8.0, nml diff; Plts 314 BUN is slightly elevated at 18, creatinine 0.82, electrolytes within normal parameters Hemoglobin A1c 5.1 Iron saturation slightly low at 13, otherwise iron studies are within normal parameters Lipids within normal limits, LFTs, TSH within normal limits Vitamin D was low and is being replaced, other vitamins were within normal limits H pylori was negative Patient's at home sleep study was negative for obstructive sleep apnea 01/17/2023 Diagnostic imaging CXR NAD Abd U/S NAFLD, hepatomegaly, gallbladder polyp measuring 5 mm, normal liver elastography UGI No HH , mild GERD Assessment & Plan Assessment & Plan (1) Obesity: Code(s): E66.9 - Obesity, unspecified (2) Morbid obesity: Code(s): E66.01 - Morbid (severe) obesity due to excess calories (3) NAFLD (nonalcoholic fatty liver disease): Code(s): K76.0 - Fatty (change of) liver, not elsewhere classified (4) Hepatomegaly: Code(s): R16.0 - Hepatomegaly, not elsewhere classified (5) Gallbladder polyp: Code(s): K82.4 - Cholesterolosis of gallbladder (6) Vitamin D deficiency: Code(s): E55.9 - Vitamin D deficiency, unspecified Plan Via packaging manager, the patient is congratulated on her ongoing healthy lifestyle changes since entering the surgical weight loss program 12/01/2022. Using a teaching director reactor projects explained about normal anatomy and digestive physiology and options including continued medical management with its risk of weight regain in 90-95% of patients; we also discussed bariatric surgery including laparoscopic gastric bypass and laparoscopic sleeve gastrectomy. The patient's questions seemed to be answered as we discussed options. She would like to proceed with a sleeve gastrectomy. I reviewed the inherent risks of laparoscopic sleeve gastrectomy, possible hiatal hernia repair, intraoperative upper endoscopy and possible ventral hernia repair, which include, but are not limited to: Bleeding that could require another operation or blood transfusion; the inherent risks of transfusion reaction infectious disease from blood transfusions; the risk of staple line leaks that could cause sepsis, multi-system organ failure and ; the risk of mesenteric or deep vein thrombosis of the lower extremities that could cause a fatal pulmonary embolism was reviewed; the risk of GERD that could require conversion to gastric bypass was discussed; the risk of recurrent hiatal hernia, especially in the setting of weight regain was reviewed. The risk of weight regain if maladaptive eating and sedentary behavior continue was discussed. The importance of proper diet and increased activity to augment surgical weight loss and the fact that no operation would result in weight loss of poor dietary decisions and sedentary behavior are resumed were discussed at length and apparently understood. The patient had the option of having a licensed guide present and declined this option. The importance of avoiding due to risks to the fetus, recommendation for a non estrogen based control due to the risk of DVT/PE and importance of diet and increased activity to augment surgical weight loss was reviewed and apparently understood. We discussed the patient's gallbladder polyp and need for repeat ultrasound in 6 months. Signs and symptoms of gallbladder disease and biliary colic were discussed. The patient confirms she is not experiencing any of the symptoms at this time, and will contact me if she has a change. Will see the patient back in 2 weeks for 45 minute visit. The patient continue her current meal plan and exercise schedule and is encouraged to bring a significant other/family member to her next appointment. Will submit for insurance. The importance of bowel prep and a liver shrinking diet preoperatively given her hepatomegaly were reviewed. Will review perioperative course and postoperative plan at her next appointment. Time spent with patient answering questions and reviewing records: 63 minute Coding Level of Care Code Tele Est Pt Level 5 (15814) Diagnoses Obesity E66.9 Morbid obesity E66.01 NAFLD (nonalcoholic fatty liver disease) K76.0 Hepatomegaly R16.0 Gallbladder polyp K82.4 Vitamin D deficiency E55.9
[2023-03-02 14:13] VITALS: BP 126/81; PULSE 88; TEMP 36.4; O2SAT 88; BMI 38.3
== END 2023-03-02 16:23 | disposition home or self-care (01) ==
PROVIDERS: Visit Provider Surgery
DX: E66.01 Morbid (severe) obesity due to excess calories (principal); Z68.38 Body mass index [BMI] 38.0-38.9, adult
CPT/HCPCS: 99215

== ENCOUNTER → 2023-03-02 14:04 | Outpatient (BNVA) | payer OTHER, SELFPAY | PROVIDERS: Visit Provider Surgery ==

== ENCOUNTER → 2023-03-17 11:01 | Outpatient (BNVA) | payer OTHER, SELFPAY | PROVIDERS: Visit Provider Surgery | DX: E66.01 Morbid (severe) obesity due to excess calories (principal); E66.9 Obesity, unspecified; K76.0 Fatty (change of) liver, not elsewhere classified; R16.0 Hepatomegaly, not elsewhere classified; K82.4 Cholesterolosis of gallbladder ==

== ENCOUNTER 2023-03-30 10:12 | Outpatient (AMB) | payer OTHER, SELFPAY ==
--- NOTE | 2023-03-30 10:11 | MHC.WMTHER ---
Intake Intake Visit Reasons: VIDEO F/U Allergies No Known Allergies Allergy (Verified 03/17/23 11:14) PFSH Family History Mother TSH (thyroid-stimulating hormone deficiency) Father Diabetes Daughter No problems noted. Daughter No problems noted. Son Asthma Social History Alcohol intake: never Patient Tobacco Use Status: Never used Tobacco Behavioral Health Assessment Weight Management Therapy Therapy Notes Details Pt requested a visit as he cancelled her bariatric surgery due to increased stress and anxiety. She has a new date for surgery but she has decided to postponed as she gained weight and also dynamics in household are not the best to allow her to proper take care of herself during post-op recovery. INTERVENTIONS: Explored feelings and ongoing challenges around moving forward with bariatric surgery. Processed triggering events leading her to have worries and fears, also identified other factor on family/personal/household situation related to her decision. Validated and normalized feelings. Explored options and completed a problem solving exercise for decision making. Completed an ABC analysis to connect triggers with her mental/emotional/behavioral responses leading to old habits. Supported client with a behavioral activation plan to get back in track with meal plan and exercise routine. RESPONSE: Pt responded well to interventions and stated feeling better as we was scared of us being upset with her. Assessment & Plan Assessment & Plan (1) Adjustment disorder: Code(s): F43.20 - Adjustment disorder, unspecified Plan follow up on 04/17/23 @11am via telehealth. Telehealth Telehealth Location of provider rendering services: practice address Location of patient: address on file Patient Identification confirmed using: Name, : Yes Telehealth method: video Patient verbally consented to treatment: Yes Patient verbally consented to billing insurance company: Yes Patient informed of any privacy concerns related to visit: Yes Minutes spent on Phone/Video with Pt.: 60 Coding Level of Care Code Established Pt Tele Psytx >53 mins ([id number]) Patient Type Established Diagnoses Adjustment disorder F43.20 Time Spent (min) 60
== END 2023-03-30 10:30 | disposition home or self-care (01) ==
LOC: HO.HBST 10:12
PROVIDERS: Visit Provider Counselor Mental Health
DX: F43.20 Adjustment disorder, unspecified (principal)
CPT/HCPCS: 90837

== ENCOUNTER → 2023-03-30 10:12 | Outpatient (BNVA) | payer OTHER, SELFPAY | PROVIDERS: Visit Provider Counselor Mental Health ==

== ENCOUNTER 2023-05-11 12:00 | Outpatient (AMB) | payer OTHER, SELFPAY ==
--- NOTE | 2023-05-11 12:37 | MHC.WMTHER ---
Intake Intake Visit Reasons: VIDEO BH F/U Allergies No Known Allergies Allergy (Verified 03/17/23 11:14) PFSH Family History Mother TSH (thyroid-stimulating hormone deficiency) Father Diabetes Daughter No problems noted. Daughter No problems noted. Son Asthma Social History Alcohol intake: never Patient Tobacco Use Status: Never used Tobacco Behavioral Health Assessment Weight Management Therapy Therapy Notes Details Pt presents for a follow up. PT reports she is 6 weeks , furthermore will not be continuing with surgical weight-loss program. Processed news and supported client with resources to manage emotional eating during . Advised to consult with her provider (OB/PCP) about nutrition program during and postpatum. Assessment & Plan Assessment & Plan (1) Adjustment disorder: Code(s): F43.20 - Adjustment disorder, unspecified Qualifiers: Adjustment disorder type: unspecified type Qualified Code(s): F43.20 - Adjustment disorder, unspecified Plan Provider will communicate with team about news. No further appointments needed unless situation changes and patient is back at [facility]. Telehealth Telehealth Location of provider rendering services: other Location of patient: address on file Patient Identification confirmed using: Name, : Yes Telehealth method: video Patient verbally consented to treatment: Yes Patient verbally consented to billing insurance company: Yes Patient informed of any privacy concerns related to visit: No Minutes spent on Phone/Video with Pt.: 30 Coding Level of Care Code Established Pt Tele Psytx 30 mins ([id number]) Patient Type Established Diagnoses Adjustment disorder, unspecified type F43.20 Adjustment disorder type: unspecified type Time Spent (min) 30
== END 2023-05-11 13:07 | disposition home or self-care (01) ==
LOC: HO.HBST 12:48
PROVIDERS: Visit Provider Counselor Mental Health
DX: F43.20 Adjustment disorder, unspecified (principal)
CPT/HCPCS: 90832

== ENCOUNTER → 2023-05-11 12:00 | Outpatient (BNVA) | payer OTHER, SELFPAY | PROVIDERS: Visit Provider Counselor Mental Health ==

== ENCOUNTER → 2024-03-20 13:18 | Outpatient (BNVA) | payer OTHER, SELFPAY | PROVIDERS: Visit Provider Physician Assistant Surgical ==

== ENCOUNTER 2024-04-12 07:59 | Outpatient (AMB) | payer OTHER, SELFPAY ==
--- NOTE | 2024-04-12 11:15 | A.OFFVIS_ITS ---
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* Pediatric Nephrologist Required: Yes Pediatric Nephrologist Services: Pediatric Nephrologist Present Information Interpreted: clinical only Allergies No Known Allergies Allergy (Verified 04/12/24 11:15) Medication List - Last Reconciled 04/12/24 by Devon Blanchard MD biotin mcg PO magnesium oxide 500 mg PO BID potassium mg PO HPI HPI TV Re-Est SWL BMI 46.2 *ASIAN STUDIES PROFESSOR*: Details: Start time: 10.56am, End time: 11.56am ?I spent 55 minutes speaking with the patient on the phone plus an additional 5 minutes reviewing and updating records for a total of 60 minutes HPI Comments Details: Previous weight loss efforts: 15 lbs at [facility] [place] Wakes up: 6.30am, sleeps: 9.30pm Breakfast: skips Lunch: 1pm (rice and beans, soups) Dinner: 6-7pm (rice and beans) Snacks: 9am (corn flakes), 9pm (sandwich, cereal, corn flakes) Exercise: has home treadmill and elliptical Fluids: Coffee: none, tea: none, soda: regular Pepsi, one per day, juice: none, ETOH: none PFSH Surgical History (Updated 03/21/24 @ 07:33 by Janna Carvalho [facility]) No pertinent past surgical history Family History Mother TSH (thyroid-stimulating hormone deficiency) Father Diabetes Daughter No problems noted. Daughter No problems noted. Son Asthma Social History Alcohol intake: never Patient Tobacco Use Status: Never used Tobacco Telehealth Telehealth Telehealth Platform: Telephone Location of provider rendering services: practice address Location of patient: address on file Patient Identification confirmed using: Name, : Yes Telehealth method: voice only Patient verbally consented to treatment: Yes Patient verbally consented to billing insurance company: Yes Patient informed of any privacy concerns related to visit: Yes Minutes spent on Phone/Video with Pt.: 60 Assessment & Plan Assessment & Plan (1) Morbid obesity: Code(s): E66.01 - Morbid (severe) obesity due to excess calories Category: Medical Plan: 1.? Plan for lap sleeve gastrectomy. If diaphragmatic or ventral hernias are present at time of surgery, these will be repaired laparoscopically as well. Risks and complications include possible conversion to an open procedure, anastomotic leak, bleeding requiring transfusion, small bowel obstruction, , DVT and pulmonary embolism, cardiac, or pulmonary complications, as skilled nursing complications such as anastomotic ulcer, insufficient weight loss and vitamin deficiencies. I emphasized the importance of close follow-up, adherence to instructions and good communication. 2. You will receive a link of our software williams to generate an individualized nutritional and exercise plan specific for you. Please send me a screenshot of the plans you will generate Meal to include lean meat (beef, fish, pork, turkey, chicken), or burmese yogurt, or egg whites, or beans with a salad with olive oil and fruits (berries, pears, apples, kiwi). Avoid salt, breads, potatoes, rice, pasta, desserts. ?3. If you choose shakes, each shake would be drunk slowly, like coffee in a period of 2 hours. ?4. If you choose bars, cut each bar in 4 pieces and eat each piece in 30min ?to make each bar last 2 hours. ?5. I emphasized the importance of measuring accurately the food portion and measure it when serving the food in plate ?6. The meal portions include a specific number of forks of meat and salad. You always eat the meat portion but you can replace up to half of salad/vegetables portion with rice, potatoes or pasta, or a fruit ?if you like. The less you do it the better weight loss will be. ?7. One full-size fork is what it can be scooped on the fork without falling aside and not what can be bit with the fork. Use regular forks like those you find in a typical restaurant. ?8.? Please send me weight measurements as soon as possible and then once a week. Always include your diet and exercise plan. 9. The best choice would be to purchase a stationary bike, elliptical or treadmill at home that can track calories. Let me know if you do so I can give you an exercise plan. ?10.?It is important of avoiding and for at least 18 months postoperatively and has been discussed at the infosession. ?11. Goal is to lose at least 1.5-2lbs per week ?12. Goal to lose 10% of your weight before surgery, which is about 26lbs. Ultimate weight goal: 230lbs before surgery 13. Please follow the diet plan exactly without any change. If you don't like something about the plan or you feel hungry you need to communicate with me so I can help you revise the plan. You should not change the plan yourself. 14. To be scheduled for EGD to assess the stomach's anatomy. The possibility of biopsies was discussed. Patient needs to avoid use of NSAIDs and aspirin for 1 week prior to EGD. Risks of perforation and bleeding was discussed with the patient. This will be an outpatient procedure with IV sedation. Orders: Orders Insulin Today E66.01 - Morbid (severe) obesity due to excess calories, K82.4 - Cholesterolosis of gallbladder, R16.0 - Hepatomegaly, not elsewhere classified Complete Blood Count Auto Diff Today E66.01 - Morbid (severe) obesity due to ex cess calories, K82.4 - Cholesterolosis of gallbladder, R16.0 - Hepatomegaly, not elsewhere classified Comprehensive Met. Panel Today E66.01 - Morbid (severe) obesity due to excess calories, K82.4 - Cholesterolosis of gallbladder, R16.0 - Hepatomegaly, not elsewhere classified Vitamin B12 and Folate Today E66.01 - Morbid (severe) obesity due to excess calories, K82.4 - Cholesterolosis of gallbladder, R16.0 - Hepatomegaly, not elsewhere classified Zinc Today E66.01 - Morbid (severe) obesity due to excess calories, K82.4 - Cholesterolosis of gallbladder, R16.0 - Hepatomegaly, not elsewhere classified Vitamin B1 Today E66.01 - Morbid (severe) obesity due to excess calories, K82.4 - Cholesterolosis of gallbladder, R16.0 - Hepatomegaly, not elsewhere classified TSH reflex Free T4 Today E66.01 - Morbid (severe) obesity due to excess calories, K82.4 - Cholesterolosis of gallbladder, R16.0 - Hepatomegaly, not elsewhere classified Ferritin Today E66.01 - Morbid (severe) obesity due to excess calories, K82.4 - Cholesterolosis of gallbladder, R16.0 - Hepatomegaly, not elsewhere classified Vitamin D 25-OH Total Today E66.01 - Morbid (severe) obesity due to excess calories, K82.4 - Cholesterolosis of gallbladder, R16.0 - Hepatomegaly, not elsewhere classified Hemoglobin A1c Today E66.01 - Morbid (severe) obesity due to excess calories, K82.4 - Cholesterolosis of gallbladder, R16.0 - Hepatomegaly, not elsewhere classified H Pylori Breath Test Today E66.01 - Morbid (severe) obesity due to excess calories, K82.4 - Cholesterolosis of gallbladder, R16.0 - Hepatomegaly, not elsewhere classified Lipid Panel Today E66.01 - Morbid (severe) obesity due to excess calories, K82.4 - Cholesterolosis of gallbladder, R16.0 - Hepatomegaly, not elsewhere classified IRON PROFILE Today E66.01 - Morbid (severe) obesity due to excess calories, K82.4 - Cholesterolosis of gallbladder, R16.0 - Hepatomegaly, not elsewhere classified C Reactive Protein Today E66.01 - Morbid (severe) obesity due to excess calories, K82.4 - Cholesterolosis of gallbladder, R16.0 - Hepatomegaly, not e lsewhere classified Vitamin A Today E66.01 - Morbid (severe) obesity due to excess calories, K82.4 - Cholesterolosis of gallbladder, R16.0 - Hepatomegaly, not elsewhere classified US abdomen comp w elastography Today E66.01 - Morbid (severe) obesity due to excess calories, K82.4 - Cholesterolosis of gallbladder, R16.0 - Hepatomegaly, not elsewhere classified ECG 12 lead EKG Today E66.01 - Morbid (severe) obesity due to excess calories, K82.4 - Cholesterolosis of gallbladder, R16.0 - Hepatomegaly, not elsewhere cla ssified Referrals Behavioral Health Referral E66.01 - Morbid (severe) obesity due to excess calories, K82.4 - Cholesterolosis of gallbladder, R16.0 - Hepatomegaly, not elsewhere classified
[2024-04-12 11:25] VITALS: BMI 46.2
== END 2024-04-12 11:57 | disposition home or self-care (01) ==
LOC: HO.HBS 07:59
PROVIDERS: Visit Provider Surgery
DX: E66.813 Obesity, class 3 (principal); Z68.41 Body mass index [BMI] 40.0-44.9, adult
CPT/HCPCS: 99215

== ENCOUNTER → 2024-04-12 07:59 | Outpatient (BNVA) | payer OTHER, SELFPAY | PROVIDERS: Visit Provider Surgery ==

== ENCOUNTER → 2024-04-17 11:47 | Outpatient (REF) | payer OTHER, SELFPAY ==
--- NOTE | 2024-04-17 11:51 | ECG_ITS ---
Test Reason : OBS Blood Pressure : / mmHG Vent. Rate : 074 BPM Atrial Rate : 074 BPM P-R Int : 150 ms QRS Dur : 078 ms QT Int : 392 ms P-R-T Axes : 017 091 054 degrees QTc Int : 435 ms Normal sinus rhythm Rightward axis Borderline ECG When compared with ECG of 13-DEC-2022 10:31, No significant change was found Referred By: Devon Blanchard Electronically Signed By:Scott Quinones
[2024-04-17 12:28] LABS: MANUAL DIFF FLAG NO
[2024-04-17 12:50] LABS: Basophils Percent Auto 0.5 % (0-2); Eosinophils Absolute Auto 0.2 X10*3/uL (0.0-0.4); Hematocrit 39.3 % (37.0-47.0); Imm Gran Abs Auto 0.02 X10*3/uL (0.00-0.03); Imm Gran Pct Auto 0.4 % (0.0-0.4); Lymphocytes Absolute Auto 2.1 X10*3/uL (1.2-4.9); Lymphocytes Percent Auto 36.7 % (20-40); Mean Corpuscular HGB Conc 33.1 g/dl (31.0-35.0); Mean Corpuscular Volume 84.7 fL (80.0-98.0); Mean Platelet Volume 10.2 fL (9.4-12.3); Monocytes Absolute Auto 0.5 X10*3/uL (0.1-1.2); Monocytes Percent Auto 8.7 % (2-11); Neutrophils Absolute Auto 2.9 x10*3/uL (2.0-8.3); Neutrophils Percent Auto 50.7 % (45-73); Platelet Count 300 X10*3/uL (160-400); Red Blood Count 4.64 X10*6/uL (4.20-5.50); Red Cell Distribution Width 14.4 % (11.0-16.0); White Blood Count 5.6 X10*3/uL (4.8-10.8)
[2024-04-17 13:03] LABS: Estimated Average Glucose 105 mg/dL; Hemoglobin A1C 114.8856 umol/L; Hemoglobin A1c % 5.3 % (<6.0); Total Hemoglobin (HGBA1C) 3322.2871 umol/L
[2024-04-17 13:33] LABS: Alanine Aminotransferase 32 U/L (0-31); Alkaline Phosphatase 96 U/L (39-117); Anion Gap 9 (12-20); Aspartate Amino Transferase 27 U/L (5-31); Bilirubin Total 0.7 mg/dL (0.0-1.0); Blood Urea Nitrogen 14 mg/dL (9-16); C Reactive Protein 0.71 mg/dL (< or = 0.50); Calcium 8.9 mg/dL (8.4-10.2); Carbon Dioxide 25 mmol/L (22-29); Chloride 110 mmol/L (96-108); Cholesterol 128 mg/dL (<200); Estimated Glomerular Filt Rate > 60; Glucose Random 92 mg/dL (60-115); HDL Cholesterol 38 mg/dL (>40); Iron 66 mcg/dL (30-160); LDL Cholesterol Calculated 76 mg/dL (<100); Percent Iron Saturation 22 % (15-50); Sodium 140 mmol/L (135-145); Total Iron Binding Capacity 295 mcg/dL (228-428); Total Protein 7.1 g/dL (6.5-8.0); Triglycerides 73 mg/dL (<150); Unsaturated Iron Binding 229 ug/dL
[2024-04-17 13:43] LABS: Ferritin 71 ng/mL (10-122); Insulin 10 uU/mL (2-29); TSH reflex Free T4 0.61 uIU/mL (0.32-4.0); Vitamin D 25-OH Total 15.8 ng/mL (>30)
[2024-04-17 14:00] LABS: Folate 9.9 ng/mL (> or = 4.0); Vitamin B12 468 pg/mL (200-900)
[2024-04-21 16:00] LABS: Zinc 61 mcg/dL (60-130)
[2024-04-23 14:53] LABS: Vitamin B1 9 nmol/L (8-30)
[2024-04-25 01:14] LABS: Vitamin A 40 mcg/dL (38-98)
== END ==
LOC: HO.CARD 11:47
PROVIDERS: Visit Provider Surgery
DX: E66.01 Morbid (severe) obesity due to excess calories (principal); R16.0 Hepatomegaly, not elsewhere classified; K82.4 Cholesterolosis of gallbladder
CPT/HCPCS: 36415; 80053; 80061; 82306; 82607; 82728; 82746; 83036; 83525; 83540; 84425; 84443; 84590; 84630; 85025; 86140; 93005

== ENCOUNTER → 2024-04-17 11:51 | Outpatient (BNV) | payer OTHER, SELFPAY | PROVIDERS: Visit Provider Internal Medicine Cardiovascular Disease | DX: R94.31 Abnormal electrocardiogram [ECG] [EKG] (principal) | CPT/HCPCS: 93010 ==

== ENCOUNTER 2024-04-23 08:34 | Outpatient (REF) | payer OTHER, SELFPAY | END 2024-04-23 08:35 | disposition home or self-care (01) | LOC: HO.US 08:34 | PROVIDERS: Visit Provider Surgery | DX: E66.01 Morbid (severe) obesity due to excess calories (principal); R16.0 Hepatomegaly, not elsewhere classified; K82.4 Cholesterolosis of gallbladder | CPT/HCPCS: 71046; 76700; 76981 ==

== ENCOUNTER 2024-05-02 11:14 | Outpatient (AMB) | payer OTHER, SELFPAY ==
--- NOTE | 2024-05-02 11:10 | MHC.WMTHER ---
Intake Intake Visit Reasons: VIDEO BH Intake Allergies No Known Allergies Allergy (Verified 05/07/24 10:02) PFSH Medical History Hx of calculus of kidney during Kidney stones Obesity Surgical History No pertinent past surgical history Family History Mother TSH (thyroid-stimulating hormone deficiency) Father Diabetes Daughter No problems noted. Daughter No problems noted. Son Asthma Social History Are you a primary pet care assistant to a significant other at home: No Do you presently have visiting nurse or other home services: No Alcohol intake: never Patient Tobacco Use Status: Never used Tobacco Behavioral Health Assessment Weight Management Therapy Therapy Notes Details PT is a 28 y/o female who has returned to [facility] as she was in the process last year but got . She had her baby girl in November/2023, baby girl is 4 months old. Today we started the assessment as part of surgical weight-loss program and PT was provided with anxiety management techniques. We will meet again to continue assessment and finalize clearance. Presenting Concerns Referral Source [facility] Provider. Reason for referral Completion of behavioral health assessment as part of process for weight-loss surgery. Precipitating Event Obesity, gets tired easily. Living Situation Current Living Situation Rent At risk of losing current housing? No Satisfied with current living situation? Yes Comments PT lives with 3 children and partner. Food/Weight/Diet Expectations of change The initial Goal is to lose 10% of your weight before surgery, which is about 26lbs. Ultimate weight goal: 230lbs before surgery She re-started program on 05/13/24 at 256Lbs, most recent weight is 250Lbs Patient goals are PT is implementing the following: Current meal plan: 3 shakes, 1 meal (8F/8F) Exercise plan: 400 eloy per day x 5 days. Walking. History/Relationship with food When stressed skips meals. Example of meals before starting the program: Breakfast: Lunch: Dinner: Snacks: Drinks/Liquids: History/Relationship with weight In the last 10 years, the patient's Lowest weight was and highest History/Relationship with dieting Pt has tried several diets, exercise plans, Herbalife, OTC pills. Usually tried things for about 6 months, was able to lost 20Lbs with Herbalife but gained weight back with last . Binge Eating Do you frequently eat large amounts of food in short periods of time, not feeling physically hungry? No Do you feel out of control when you eat a large amount of food in a short period of time? No Do you eat large amounts of food rapidly and typically alone? No Night Eating Do you wake up at least once during the night to eat? No If you wake up in the night, do you find that it is necessary to eat something in order to fall back asleep? No Do you have little or no appetite in the morning and feel very hungry in the evening, often overeating between dinner and when you go to bed? Yes Social History Family history and relationship PT is in a formal relationship 4 years ago with the father of her 2 youngest daughters. PT has 4 children She has 15 siblings she's aware of (7 mother's side, and about 8 from dad's side). They all are very close. Parents are alive but , they live in [place]. Parental/Familial chain mender obligations 4 children. (8 y/o son, 7y/o daughter, and 2, y/o daughter and a 4 month old girl). Developmental history and status Within normal limits. Social support Partner, children. Community support providers Congregational/Spirituality None specified. Cultural/Ethnic information PT was born in [place]. Moved to [place] 2 years ago. Pt is mainly Chilean-speaking. Legal Involvement and History Current or historical involvement with the legal system? None reported Education Highest grade completed 12th grade. She has a certificate in gastronomy. Preferred learning style Written, Learn by doing and Visual Currently enrolled in educational program? No Interested in further educational program? 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 Employment Employment Status Unemployed Wants help to find employment? No (She's looking into go back to school. ) Meaningful activities Family activities, go to the park, music. Financial Situation Describe current financial situation Comfortable Financial assistance? Food [place], [employer]AF[employer] and Other ([facility]) Service Service? No Mental Health and Addiction Treatment Current/Past substance abuse? No Current/Past addictive behavior concerns? No Psychiatric history PT has been attending counseling since about 2 months ago due to increased anxiety related to world events. She attends counseling via Telehealth weekly. Never been in crisis and/or hospitalized for mental health. Denies ever experiencing SI, and or other self-harm/other-harm concerns. Medical and Physical Health Summary Additional Medical History not covered in history None reported Sexual History concerns None reported Physical exam in the last year? No Pain Screening Current pain? Yes Pain in the last few months? Yes Comments Back pain. Medications Is the patient compliant with medications? Not applicable Does the patient have Pryor Guardian in place? Not applicable Does the patient use complimentary health approaches? No Trauma/Abuse History History of trauma? No Questionnaires PHQ-9 Over the last 2 weeks, how often have you been bothered by any of the following problems? 1. Little interest or pleasure in doing things: several days 2. Feeling down, depressed, or hopeless: several days 3. Trouble falling or staying asleep, or sleeping too much: nearly every day 4. Feeling tired or having little energy: nearly every day 5. Poor appetite or overeating: several days 6. Feeling bad about yourself - or that you are a failure or have let yourself or your family down: not at all 7. Trouble concentrating on things, such as reading the newspaper or watching television: several days 8. Moving or speaking so slowly that other people could have noticed. Or the opposite - being so fidgety or restless that you have been moving around a lot more than usual: not at all 9. Thoughts that you would be better off or of hurting yourself in some way: not at all Total score: 10 Depression Screening Interpretation: Positive (From new PT pack scanned om 04/23. New one will be administered at next visit. ) Depression Screening Follow-up: In treatment Depression Screening Done: Yes Source: Developed by Drs. Denny Dewey, Sailaja Lay, Silvano Menjivar and colleagues, with an educational dominick from [employer]. Binge Eating Scale Group 1 A. I don't feel self-conscious about my wt. or body size when I'm with others. B. I feel concerned about how I look to others, but it normally does not make me fell disappointed with myself C. I do get self-conscious about my appearance and wt. which makes me feel disappointed in myself. D. I feel very self-conscious about my wt. and frequently I feel intense shame and disgust for myself. I try to avoid social contacts because of my self-consciousness. Response Group 1: A Group 2 A. I don't have any difficulty eating slowly in the proper manner. B. Although I seem to gobble down foods, I don't end up feeling stuffed because of eating to much. C. At times, I tend to eat quickly and then, I feel uncomfortably full afterwards. D. I have the habit of bolting down my food, without really chewing it. When this happens I usually feel uncomfortably stuffed because I've eaten to much. Response Group 2: A Group 3 A. I feel capable to control my eating urges when I want to. B. I feel like I have failed to control my eating more than the average person. C. I feel utterly helpless when it comes to feeling in control of my eating urges. D. Because I feel so helpless about controlling my eating I have become very desperate about trying to get control. Response Group 3: A Group 4 A. I don't have the habit of eating when I'm bored. B. I sometimes eat when I'm bored, but often I'm able to get busy and get my mind off food. C. I have a regular habit of eating when I'm bored, but occasionally, I can use some other activity to get my mind off eating. D. I have a strong habit of eating when I'm bored. Nothing seems to help me breath the habit. Response Group 4: B Group 5 A. I'm usually physically hungry when I eat something. B. Occasionally, I eat something on impulse even though I really am not hungry. C. I have the regular habit of eating foods, that I might not really enjoy, to satisfy a hungry feeling even though physically, I don't need the food. D. Although I'm not physically hungry, I get a hungry feeling in my mouth that only seems to be satisfied when I eat a food, like sandwich, that fills my mouth. Sometimes, when I eat the food to satisfy my mouth hunger, I then spit the food out so I won't gain weight. Response Group 5: A Group 6 A. I don't feel any guilt or self-hate after I overeat. B. After I overeat, occasionally I feel guilt or self-hate. C. Almost all the time I experience strong guilt or self-hate after I overeat. Response Group 6: A Group 7 A. I don't lose total control of my eating when dieting even after periods when I overeat. B. Sometimes when I eat a forbidden food on a diet, I feel like I blew it and eat even more. C. Frequently, I have the habit of saying to myself, I've blown it now, why not go all the way, when I overeat on a diet. When that happens I eat more. D. I have a regular habit of starting a strict diets for myself but I break the diets by going on an eating binge. My life seems to be either a feast or famine. Response Group 7: A Group 8 A. I rarely eat so much food that I feel uncomfortably stuffed afterwards. B. Usually about once a month, I each such a quantity of food, I end up feeling very stuffed. C. I have regular periods during the month when I eat large amounts of food, either at mealtime or at snacks. D. I eat so much food that I regularly feel quite uncomfortable after eating and sometimes a bit nauseous. Response Group 8: A Group 9 A. My level of calorie intake does not go up very high or go down very low on a regular basis. B. Sometimes after I overeat, I will try to reduce my caloric intake to almost nothing to compensate for the excess calories I've eaten. C. I have a regular habit of overeating during the night. It seems that my routine is not to be hungry in the morning but overeat in the evening. D. In my adult years, I have had week-long periods where I practically starve myself. This follows periods when I overeat. It seems I live a life of either feast or famine. Response Group 9: C Group 10 A. I usually am able to stop eating when I want to. I know when enough is enough. B. Every so often, I experience a compulsion to eat which I can't seem to control. C. Frequently, I experience strong urges to eat which I seem unable to control, but at other times I can control my eating urges. D. I feel incapable of controlling urges to eat. I have a fear of not being able to stop eating voluntarily. Response Group 10: A Group 11 A. I don't have any problem stopping eating when I feel full. B. I usually can stop eating when I feel full but occasionally overeat leaving me feeling uncomfortably stuffed. C. I have a problem stopping eating once I start and usually I feel uncomfortably stuffed after I eat a meal. D. Because I have a problem not being able to stop eating when I want, I sometimes have to induce vomiting to relieve my stuffed feeling. Response Group 11: A Group 12 A. I seem to eat just as much when I'm with others, Family social gatherings as when I'm by myself. B. Sometimes, when I'm with other persons, I don't eat as much as I want to eat because I'm self-conscious about my eating. C. Frequently, I eat only a small amount of food when others are present, because I'm very embarrassed about my eating. D. I feel so ashamed about overeating that I pick times to overeat when I know no one will see me. I feel like a closet eater. Response Group 12: A Group 13 A. I eat three meals a day with only an occasional between meal snack. B. I eat 3 meals a day, but I also normally snack between meals. C. When I am snacking heavily, I get in the habit of skipping regular meals. D. There are regular periods when I seem to be continually eating, with no planned meals. Response Group 13: D Group 14 A. I don't think much about trying to control unwanted eating urges. B. At least some of the time, I feel my thoughts are pre-occupied with trying to control my eating urges. C. I feel that frequently I spend much time thinking about how much I ate or about trying not to eat anymore. D. It seems to me that most of my waking hours are pre-occupied by thoughts about eating or not eating. I feel like I'm constantly struggling not to eat. Response Group 14: A Group 15 A. I don't think about food a great deal. B. I have strong craving for food but they last only for brief periods of time. C. I have days when I can't seem to think about anything else but food. D. Most of my days seem to be pre-occupied with thoughts about food. I feel like I live to eat. Response Group 15: B Group 16 A. I usually know whether or not I'm physically hungry. I take the right portion of food to satisfy me. B. Occasionally, I feel uncertain about knowing whether or not I'm physically hungry. A these times it's hard to know how much food I should take to satisfy me. C. Even though I might know how many calories I should eat, I don't have any idea what is a normal amount of food for me. Response Group 16: C Binge Eating Score: 9 Score less than 17 Minimal Risk Score between 18-26 Moderate Risk Score between 27-46 High Risk Assessment & Plan Assessment & Plan (1) Adjustment disorder with anxiety: Code(s): F43.22 - Adjustment disorder with anxiety Plan We will meet again to continue assessment. Next williams: 05/20 at 8am, via Telehealth. Telehealth Telehealth [facility]health Platform: [facility] Location of provider rendering services: other Location of patient: address on file Patient Identification confirmed using: Name, : Yes Telehealth method: video Patient verbally consented to treatment: Yes Patient verbally consented to billing insurance company: Yes Patient informed of any privacy concerns related to visit: Yes Minutes spent on Phone/Video with Pt.: 55 Coding Level of Care Code New Pt Tele Psytx >53 mins (06024) Patient Type New Diagnoses Adjustment disorder with anxiety F43.22 Time Spent (min) 55
== END 2024-05-02 15:58 | disposition home or self-care (01) ==
LOC: HO.HBST 11:14
PROVIDERS: Visit Provider Counselor Mental Health
DX: F43.22 Adjustment disorder with anxiety (principal)
CPT/HCPCS: 90837

== ENCOUNTER 2024-05-07 09:18 | Day surgery (SDC) | payer OTHER, SELFPAY ==
[2024-05-07 09:42] LABS: UPreg QC Valid YES; Urine Pregnancy NEGATIVE (NEGATIVE)
[2024-05-07] MEDS: Lactated Ringers 1,000 ML 80 ML IVCONT (09:47)
[2024-05-07 09:59] VITALS: BP 120/73; PULSE 88; RESP 18; TEMP 36.7; O2SAT 98
[2024-05-07 10:01] VITALS: BMI 45.9
--- NOTE | 2024-05-07 12:00 | P.CONAN_ITS ---
[facility] Active Problems Active Problems: All Active Problems Vitamin D deficiency (Acute) Gallbladder polyp (Acute) Hepatomegaly (Acute) NAFLD (nonalcoholic fatty liver disease) (Acute) Obesity (Acute) Morbid obesity (Acute) Past Medical History Medical History Hx of calculus of kidney during Kidney stones Obesity Family History Family History Mother TSH (thyroid-stimulating hormone deficiency) Father Diabetes Daughter No problems noted. Daughter No problems noted. Son Asthma Surgical History Surgical History No pertinent past surgical history History of Problems with Anesthesia: No Social History Social History Are you a primary respiratory care practitioner to a significant other at home: No Do you presently have visiting nurse or other home services: No Alcohol intake: never Patient Tobacco Use Status: Never used Tobacco Have you been hit, kicked, punched, or otherwise hurt by someone within the past year? If so, by whom?: No Are you DNR?: No Advance Directives: No Advance Directives Information Provided: Yes Recently lost weight without trying: No Nutrition Risks: No Nutritional Risk FDLMP: 04/17/24 Meds Allergies Allergy/AdvReac Type Severity Reaction Status Date / Time No Known Allergies Allergy Verified 05/07/24 10:02 Active Medications: Current Medications Lactated Ringer's (Lr) 1,000 mls @ 80 mls/hr IVCONT .[id number] [facility] Last Admin: 05/07/24 09:47 Dose: 80 mls/hr Home Medications ?Medication ?Instructions ?Recorded ?Confirmed ?Last Taken ?Type biotin 10,000 mcg capsule mcg PO 03/21/24 04/12/24 Unknown History magnesium oxide 500 mg PO BID 03/21/24 05/07/24 Unknown History potassium 75 mg tablet mg PO 03/21/24 04/12/24 Unknown History Exam Height,Weight and Vital Signs: Height 5 ft 2.5 in Weight 115.666 kg Last Vital Signs Temp 98.1 F 05/07/24 09:59 Pulse 88 05/07/24 09:59 Resp 18 05/07/24 09:59 BP 120/73 05/07/24 09:59 Pulse Ox 98 05/07/24 09:59 O2 Del Method Room Air 05/07/24 09:59 Pertinent Lab Results Pertinent Lab Results: Laboratory Tests 05/07/24 09:30 Urine Test NEGATIVE Airway Mallampati Class: II TM Dist: >3cm Neck ROM: Full Loose/Missing/Broken Teeth: No Heart: RRR Lungs: CTA Assessment and Plan Assessment Anesthesia Assessment: Anesthesia Plan Discussed and Chart Reviewed Final Anesthetic Review History of Problems with Anesthesia: No NPO: Yes ASA Class: III Final Preanesthetic Review: Meds/Allgs Chart Reviewed, Consent Obtained/Reviewed and Anes Risks/Benef Reviewed Patient Risk: Intermediate Procedure Risk: Intermediate Anesthetic Plan Disposition: Standard PACU
--- NOTE | 2024-05-07 12:08 | MHC.SHP ---
Pre-Procedural Eval Section A - 24 Hr Update-Section A only Date of Service: 05/07/24 The patient is an INPATIENT: No The patient has been examined within 24 hours of the surgical procedure. The History & Physical has been completed within 30 days and I have reviewed it.: Yes Section B - Complete if H&P > 30 days Chief Complaint: Morbid (severe) obesity due to excess calories Details of Present Illness: GERD Relevant Family History (Specify if Yes): No Relevant Social History: None Present Medications: None Medical History: No relevant PMH History of Previous Operations: No relevant previous surgery Allergies: Allergies Allergy/AdvReac Type Severity Reaction Status Date / Time No Known Allergies Allergy Verified 05/07/24 10:02 Review of Systems Sugical H&P ROS: Negative: Constitution, Cardiovascular, Respiratory, Neurological, Psychiatric, Hem-Onc, Allergic/Immunologic, Gastrointestinal, Genitourinary, Musculoskeletal, Integumentary, Endocrine and Eyes/Ears/Nose/Throat Exam Surgical H&P Exam: Normal: HEENT, Normal: Heart, Normal: Lungs, Normal: Extremities, Normal: Abdomen, Normal: Skin and Normal: Neurological Plan Diagnosis/Plan: Unchanged (EGD to assess etiology of GERD. Risks of bleeding and perforation were discussed with the patient and she is in agreement with the plan.) I have reviewed the history and physical and performed a pertinent physical examination on my patient. No changes have occurred unless specified. Time Spent With Patient Time: Total time managing care of this patient today ____ minutes.
--- NOTE | 2024-05-07 12:10 | PM.OP ---
Brief Operative Note Date of Service: 05/07/24 Pre-op diagnosis: GERD Post-op diagnosis: same Procedure: PROCEDURE DATE: 05/07/2024 PREOPERATIVE DIAGNOSIS: GERD POSTOPERATIVE DIAGNOSIS: ?Same as above. 1) normal endoscopy PROCEDURE: Dsuztswc-jberfr-qjefrqjwvjrk with biopsies Surgeon: Shazia Blanchard M.D.. Ph.D. Pediatrics Physician: None ? Anesthesia: IV sedation Estimated blood loss: ?Minimal FINDINGS AND PROCEDURE: ? OPERATIVE INDICATIONS: ?The patient is a 28 year old female known to me who is interested in bariatric surgery. The patient has GERD. Based on this information I recommended an upper endoscopy to evaluate the patient's symptoms. Risks and complications of the surgery were discussed with the patient in advance particularly the possibility of perforation or bleeding that may require surgical intervention. The patient understood the risks and was in agreement with the plan. ? PROCEDURE: After informed consent was obtained by the patient, the patient was ?transferred to the Operating Room and was placed in the supine position.? After successful induction of IV sedation, a mouth block was inserted and the patient was placed in the left lateral decubitus position. An upper endoscopy was performed next, the oropharynx and esophagus appeared within the normal limits. There was no hiatal hernia. The z-line was smooth. Two biopsies were obtained from the distal esophagus 2-3 cm proximal to the GE junction and two additional biopsies from the GE junction. The stomach was entered and it appeared to be of normal size. There was no gastritis. There was no stricture or ulcer. A biopsy was obtained from the gastric fundus and antrum. No significant bleeding was noted from any of the biopsy sites. Retroflexion of the scope confirmed a normal GE anatomy. The scope was then advanced into the duodenum which appeared to be normal as well. At that point the duodenum ?and the stomach were decompressed and the scope was withdrawn from the patient's mouth. The patient extubated and was transferred in stable condition to the Recovery Room for further care. I was present and performed all steps of the procedure. There were no residents to assist with this case. Vito Blanchard M.D., Ph.D. ReplyForward Surgeon: Devon Blanchard MD Anesthesia: MAC Was an Pediatrics Physician used for this Procedure?: No Estimated blood loss (mL): 0 IV fluids (mL): 400 Urine output (mL): 0 (No Welsh to record output) Pathology: other (1) antrum x1, 2) fundus x1, 3) GE junction x2, 4) distal esophagus x2) Condition: stable Disposition: PACU
[2024-05-07 13:00] VITALS: BP 89/50; PULSE 92; RESP 16; TEMP 36.4; O2SAT 99
[2024-05-07 13:15] VITALS: BP 119/59; PULSE 89; RESP 16; O2SAT 98
[2024-05-07 13:30] VITALS: BP 110/74; PULSE 89; RESP 16; TEMP 36.4; O2SAT 99
== END 2024-05-07 14:14 | disposition home or self-care (01) ==
PROVIDERS: Anesthesiology; Visit Provider Surgery
PROC: 0DJ08ZZ Inspection of Upper Intestinal Tract, Via Natural or Artificial Opening Endoscopic (ICD-10-PCS; CPT 43235; principal; 2024-05-07 11:20)
DX: K21.9 Gastro-esophageal reflux disease without esophagitis (principal); E66.01 Morbid (severe) obesity due to excess calories; Z68.42 Body mass index [BMI] 45.0-49.9, adult; K82.4 Cholesterolosis of gallbladder; R16.0 Hepatomegaly, not elsewhere classified; Z79.899 Other long term (current) drug therapy
CPT/HCPCS: 43239; 81025; 88305; 88313; 88342; J2003; J2704

== ENCOUNTER → 2024-05-07 09:18 | Outpatient (BNV) | payer OTHER, SELFPAY | PROVIDERS: Visit Provider Surgery | DX: K21.9 Gastro-esophageal reflux disease without esophagitis (principal) | CPT/HCPCS: 43239 ==

== ENCOUNTER → 2024-05-20 08:41 | Outpatient (AMB) | payer OTHER, SELFPAY ==
--- NOTE | 2024-05-20 08:15 | A.OFFWM_ITS ---
Intake Intake Visit Reasons: VIDEO F/U Allergies No Known Allergies Allergy (Verified 05/07/24 10:02) PFSH Medical History Hx of calculus of kidney during Kidney stones Obesity Surgical History No pertinent past surgical history Family History Mother TSH (thyroid-stimulating hormone deficiency) Father Diabetes Daughter No problems noted. Daughter No problems noted. Son Asthma Social History Are you a primary primary care nurse to a significant other at home: No Do you presently have visiting nurse or other home services: No Alcohol intake: never Patient Tobacco Use Status: Never used Tobacco Behavioral Health Assessment Weight Management Therapy Therapy Notes Details PT is a 28 y/o female who has returned to [facility] as she was in the process last year but got . She had her baby girl in November/2023, baby girl is 4 months old. PT reports she has recently started counseling due to symptoms of anxiety, PT reports these Sx are mainly after watching the news. In the past, the patient has never been in crisis and/or hospitalized for mental health and also PT denies ever experiencing SI, and or other self-harm/other-harm concerns. There is also no substance use reported, and there are not active concerns with stress/emotional eating. PT reports she has been better since the last visit as she has been implementing techniques recommended and noticing a deprese in overall anxiety. Today she was provided with techniques to work on sleep hygiene/routine and ways to use other self-soothing tools at night to work on her mind and improve morning mood/mindset such as gratitude journal and mindfulness. PHQ-9 was administered again today and scores indicate no active Sx or concerns around depression. Mental status exam is withing normal limits suggesting the patients functioning is intact. Today her assessment was finished and the patient has been cleared from standpoint. She will follow up with this provider in 1 month for support with Symptom management. Presenting Concerns Referral Source [facility] Provider. Reason for referral Completion of behavioral health assessment as part of process for weight-loss surgery. Precipitating Event Obesity, gets tired easily. Living Situation Current Living Situation Rent At risk of losing current housing? No Satisfied with current living situation? Yes Comments PT lives with 3 children and partner. Food/Weight/Diet Expectations of change The initial Goal is to lose 10% of your weight before surgery, which is about 26lbs. Ultimate weight goal: 230lbs before surgery She re-started program on 05/13/24 at 256Lbs, most recent weight is 250Lbs PT is implementing the following: Current meal plan: 3 shakes, 1 meal (8F/8F) Exercise plan: 400 eloy per day x 5 days. Walking. History/Relationship with food PT reports she tends to skip meals as she is busy with her children and most of the days she snacks on things during the day and end up having a big dinner at around 8pm. When stressed skips meals. Example of meals before starting the program: Breakfast: skip Lunch: skip Dinner: @8pm, home made food. Rice, beans and meat or tacos. Take out 1-2 times at month. Snacks: during the day not everyday. but some days would pick on chips Drinks/Liquids: 2 cans of soda, 5-8 bottles of water. History/Relationship with weight She was at a normal weight in childhood. Then as a teen was on normal weight. Started gaining weight after first in 2016. With last she was at 260Lbs at the baby's 4 months ago. In the last 10 years, the patient's Lowest weight was 130Lbs at age 18 and highest 260Lbs 4 months ago. When she did the program last year she was at 207Lbs claire found she was . Most recent weight 251Lbs, last week. History/Relationship with dieting PT has tried several diets, exercise plans, Herbalife, OTC pills. Usually tried things for about 6 months, was able to lost 20Lbs with Herbalife but gained weight back with last . Binge Eating Do you frequently eat large amounts of food in short periods of time, not feeling physically hungry? No Do you feel out of control when you eat a large amount of food in a short period of time? No Do you eat large amounts of food rapidly and typically alone? No Night Eating Do you wake up at least once during the night to eat? No If you wake up in the night, do you find that it is necessary to eat something in order to fall back asleep? No Do you have little or no appetite in the morning and feel very hungry in the evening, often overeating between dinner and when you go to bed? Yes Social History Family history and relationship PT is in a formal relationship 4 years ago with the father of her 2 youngest daughters. PT has 4 children She has 15 siblings she's aware of (7 mother's side, and about 8 from dad's side). They all are very close. Parents are alive but , they live in [place]. Parental/Familial attending radiologist obligations 4 children. (8 y/o son, 7y/o daughter, and 2, y/o daughter and a 4 month old girl). Developmental history and status Within normal limits. Social support Partner, children. Community support providers Gnosticist/Spirituality None specified. Cultural/Ethnic information PT was born in [place]. Moved to [place] 2 years ago. Pt is mainly Korean-speaking. Legal Involvement and History Current or historical involvement with the legal system? None reported Education Highest grade completed 12th grade. She has a certificate in gastronomy. Preferred learning style Written, Learn by doing and Visual Currently enrolled in educational program? No Interested in further educational program? 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 Employment Employment Status Unemployed Wants help to find employment? No (She's looking into go back to school. ) Meaningful activities Family activities, go to the park, music. Financial Situation Describe current financial situation Comfortable Financial assistance? [employer], TAF[employer] and Other ([facility]) Service Service? No Mental Health and Addiction Treatment Current/Past substance abuse? No Comments Alcohol: None Cigarettes/Tobacco: None Cannabis/Edibles: None Current/Past addictive behavior concerns? No Psychiatric history PT has been attending counseling since about 2 months ago due to increased anxiety related to world events. She attends counseling via Telehealth weekly. Never been in crisis and/or hospitalized for mental health. Denies ever experiencing SI, and or other self-harm/other-harm concerns. Medical and Physical Health Summary Additional Medical History not covered in history None reported Sexual History concerns None reported Physical exam in the last year? No Pain Screening Current pain? Yes Pain in the last few months? Yes Comments Back pain. Medications Is the patient compliant with medications? Not applicable Does the patient have Pryor Guardian in place? Not applicable Does the patient use complimentary health approaches? No Trauma/Abuse History History of trauma? No Questionnaires PHQ-9 Over the last 2 weeks, how often have you been bothered by any of the following problems? 1. Little interest or pleasure in doing things: not at all 2. Feeling down, depressed, or hopeless: not at all 3. Trouble falling or staying asleep, or sleeping too much: not at all 4. Feeling tired or having little energy: not at all 5. Poor appetite or overeating: not at all 6. Feeling bad about yourself - or that you are a failure or have let yourself or your family down: not at all 7. Trouble concentrating on things, such as reading the newspaper or watching television: not at all 8. Moving or speaking so slowly that other people could have noticed. Or the opposite - being so fidgety or restless that you have been moving around a lot more than usual: not at all 9. Thoughts that you would be better off or of hurting yourself in some way: not at all Total score: 0 Depression Screening Interpretation: Negative Depression Screening Done: Yes 84968 - PHQ-9 Billing: Yes Source: Developed by Drs. Denny Dewey, Sailaja Lay, Silvano Menjivar and colleagues, with an educational dominick from [employer]. Binge Eating Scale Group 1 A. I don't feel self-conscious about my wt. or body size when I'm with others. B. I feel concerned about how I look to others, but it normally does not make me fell disappointed with myself C. I do get self-conscious about my appearance and wt. which makes me feel disappointed in myself. D. I feel very self-conscious about my wt. and frequently I feel intense shame and disgust for myself. I try to avoid social contacts because of my self- consciousness. Response Group 1: A Group 2 A. I don't have any difficulty eating slowly in the proper manner. B. Although I seem to gobble down foods, I don't end up feeling stuffed because of eating to much. C. At times, I tend to eat quickly and then, I feel uncomfortably full afterwards. D. I have the habit of bolting down my food, without really chewing it. When this happens I usually feel uncomfortably stuffed because I've eaten to much. Response Group 2: A Group 3 A. I feel capable to control my eating urges when I want to. B. I feel like I have failed to control my eating more than the average person. C. I feel utterly helpless when it comes to feeling in control of my eating urg es. D. Because I feel so helpless about controlling my eating I have become very desperate about trying to get control. Response Group 3: A Group 4 A. I don't have the habit of eating when I'm bored. B. I sometimes eat when I'm bored, but often I'm able to get busy and get my mind off food. C. I have a regular habit of eating when I'm bored, but occasionally, I can use some other activity to get my mind off eating. D. I have a strong habit of eating when I'm bored. Nothing seems to help me breath the habit. Response Group 4: B Group 5 A. I'm usually physically hungry when I eat something. B. Occasionally, I eat something on impulse even though I really am not hungry. C. I have the regular habit of eating foods, that I might not really enjoy, to satisfy a hungry feeling even though physically, I don't need the food. D. Although I'm not physically hungry, I get a hungry feeling in my mouth that only seems to be satisfied when I eat a food, like sandwich, that fills my mouth. Sometimes, when I eat the food to satisfy my mouth hunger, I then spit the food out so I won't gain weight. Response Group 5: A Group 6 A. I don't feel any guilt or self-hate after I overeat. B. After I overeat, occasionally I feel guilt or self-hate. C. Almost all the time I experience strong guilt or self-hate after I overeat. Response Group 6: A Group 7 A. I don't lose total control of my eating when dieting even after periods when I overeat. B. Sometimes when I eat a forbidden food on a diet, I feel like I blew it and eat even more. C. Frequently, I have the habit of saying to myself, I've blown it now, why not go all the way, when I overeat on a diet. When that happens I eat more. D. I have a regular habit of starting a strict diets for myself but I break the diets by going on an eating binge. My life seems to be either a feast or famine. Response Group 7: A Group 8 A. I rarely eat so much food that I feel uncomfortably stuffed afterwards. B. Usually about once a month, I each such a quantity of food, I end up feeling very stuffed. C. I have regular periods during the month when I eat large amounts of food, either at mealtime or at snacks. D. I eat so much food that I regularly feel quite uncomfortable after eating and sometimes a bit nauseous. Response Group 8: A Group 9 A. My level of calorie intake does not go up very high or go down very low on a regular basis. B. Sometimes after I overeat, I will try to reduce my caloric intake to almost nothing to compensate for the excess calories I've eaten. C. I have a regular habit of overeating during the night. It seems that my routine is not to be hungry in the morning but overeat in the evening. D. In my adult years, I have had week-long periods where I practically starve myself. This follows periods when I overeat. It seems I live a life of either feast or famine. Response Group 9: C Group 10 A. I usually am able to stop eating when I want to. I know when enough is enough. B. Every so often, I experience a compulsion to eat which I can't seem to control. C. Frequently, I experience strong urges to eat which I seem unable to control, but at other times I can control my eating urges. D. I feel incapable of controlling urges to eat. I have a fear of not being able to stop eating voluntarily. Response Group 10: A Group 11 A. I don't have any problem stopping eating when I feel full. B. I usually can stop eating when I feel full but occasionally overeat leaving me feeling uncomfortably stuffed. C. I have a problem stopping eating once I start and usually I feel uncomfortably stuffed after I eat a meal. D. Because I have a problem not being able to stop eating when I want, I sometimes have to induce vomiting to relieve my stuffed feeling. Response Group 11: A Group 12 A. I seem to eat just as much when I'm with others, Family social gatherings as when I'm by myself. B. Sometimes, when I'm with other persons, I don't eat as much as I want to eat because I'm self-conscious about my eating. C. Frequently, I eat only a small amount of food when others are present, because I'm very embarrassed about my eating. D. I feel so ashamed about overeating that I pick times to overeat when I know no one will see me. I feel like a closet eater. Response Group 12: A Group 13 A. I eat three meals a day with only an occasional between meal snack. B. I eat 3 meals a day, but I also normally snack between meals. C. When I am snacking heavily, I get in the habit of skipping regular meals. D. There are regular periods when I seem to be continually eating, with no planned meals. Response Group 13: D Group 14 A. I don't think much about trying to control unwanted eating urges. B. At least some of the time, I feel my thoughts are pre-occupied with trying to control my eating urges. C. I feel that frequently I spend much time thinking about how much I ate or about trying not to eat anymore. D. It seems to me that most of my waking hours are pre-occupied by thoughts about eating or not eating. I feel like I'm constantly struggling not to eat. Response Group 14: A Group 15 A. I don't think about food a great deal. B. I have strong craving for food but they last only for brief periods of time. C. I have days when I can't seem to think about anything else but food. D. Most of my days seem to be pre-occupied with thoughts about food. I feel like I live to eat. Response Group 15: B Group 16 A. I usually know whether or not I'm physically hungry. I take the right portion of food to satisfy me. B. Occasionally, I feel uncertain about knowing whether or not I'm physically hungry. A these times it's hard to know how much food I should take to satisfy me. C. Even though I might know how many calories I should eat, I don't have any idea what is a normal amount of food for me. Response Group 16: C Binge Eating Score: 9 Score less than 17 Minimal Risk Score between 18-26 Moderate Risk Score between 27-46 High Risk Assessment & Plan Assessment & Plan (1) Adjustment disorder with anxiety: Code(s): F43.22 - Adjustment disorder with anxiety Plan PT has been cleared from BH standpoint, she will be seen again in 1 month for support with anxiety management. Next williams: 06/17 @8am, Telehealth. Telehealth Telehealth Telehealth Platform: [facility] Location of provider rendering services: practice address Location of patient: address on file Patient Identification confirmed using: Name, : Yes Telehealth method: video Patient verbally consented to treatment: Yes Patient verbally consented to billing insurance company: Yes Patient informed of any privacy concerns related to visit: Yes Minutes spent on Phone/Video with Pt.: 55 Coding Level of Care Code Established Pt Tele Psytx >53 mins (24508) Patient Type Established Diagnoses Adjustment disorder with anxiety F43.22 Additional Codes PHQ-9 - 25872 - PHQ-9 Billing: Yes ([id number]) Time Spent (min) 55
== END ==
PROVIDERS: Visit Provider Counselor Mental Health
DX: F43.22 Adjustment disorder with anxiety (principal)
CPT/HCPCS: 90837

== ENCOUNTER 2024-06-17 08:19 | Outpatient (AMB) | payer OTHER, SELFPAY ==
--- NOTE | 2024-06-17 08:05 | MHC.WMTHER ---
Intake Intake Visit Reasons: VIDEO F/U Allergies No Known Allergies Allergy (Verified 05/07/24 10:02) PFSH Medical History Hx of calculus of kidney during Kidney stones Obesity Surgical History No pertinent past surgical history Family History Mother TSH (thyroid-stimulating hormone deficiency) Father Diabetes Daughter No problems noted. Daughter No problems noted. Son Asthma Social History Are you a primary physician primary care sports medicine to a significant other at home: No Do you presently have visiting nurse or other home services: No Alcohol intake: never Patient Tobacco Use Status: Never used Tobacco Behavioral Health Assessment Weight Management Therapy Therapy Notes Details Subjective: PT reports she is doing better. anxiety is lower and she is implementing Attending counseling every 2-3 weeks. Objective: PT presents for a follow up visit via Telehealth. . Discussed functioning and routine. Worked in anxiety/stress Sx management, and learning methods to start gradually exposing herself to some fears, as well of increasing tolerance to uncomfortable feelings. Reviewed some strategies to manage upcoming holidays and remain committed and following her meal/exercise plan. Advised to continue with ongoing therapist and ask therapist to provide her with further guidance for anxiety management. Constructive provided. Assessment/Response: Mental status: Euthymic, alert, oriented x3, good functioning. Risk reported/identified: None. PT stable, open and active in session. Responded well to modality. She is stable and wikll f/up with her provider to continue counseling services. Food/Weight/Diet Expectations of change The initial Goal is to lose 10% of your weight before surgery, about 26lbs. Ultimate weight goal: 230lbs before surgery She re-started the program on 05/13/24 at 256 lbs, her most recent weight is 250 lbs. Most recent weight (06/13/24): 240Lbs PT is implementing the following: Current meal plan: 3 shakes, 1 meal (8F/8F) Exercise plan: 400 eloy per day x 5 days. Walking. Assessment & Plan Assessment & Plan (1) Adjustment disorder with anxiety: Code(s): F43.22 - Adjustment disorder with anxiety Plan Plan: PT will be seen post-op. And she will continue meeting with her provider on a regular basis. Next williams: 2-6 wks PO. Telehealth Telehealth Telehealth Platform: [employer] Location of provider rendering services: practice address Location of patient: address on file Patient Identification confirmed using: Name, : Yes Telehealth method: video Patient verbally consented to treatment: Yes Patient verbally consented to billing insurance company: Yes Patient informed of any privacy concerns related to visit: Yes Minutes spent on Phone/Video with Pt.: 55 Coding Level of Care Code Established Pt Tele Psytx >53 mins (00630) Patient Type Established Diagnoses Adjustment disorder with anxiety F43.22 Time Spent (min) 55
== END 2024-06-17 13:31 | disposition home or self-care (01) ==
LOC: HO.HBST 08:19
PROVIDERS: Visit Provider Counselor Mental Health
DX: F43.22 Adjustment disorder with anxiety (principal)
CPT/HCPCS: 90837

== ENCOUNTER 2024-07-15 08:05 | Outpatient (AMB) | payer OTHER, SELFPAY ==
[2024-07-15 09:57] VITALS: BMI 42.5
--- NOTE | 2024-07-15 09:57 | A.OFFVIS_ITS ---
VS Expanded 07/15/24 09:57 Height 5 ft 2.5 in Weight 236 lb 3 oz BMI 42.5 Body Fat % 55.8 Body Fat Mass 131.8 Fat Free Mass 104.4 Visceral Fat Rating 24 Body Water % 30.3 Body Water Mass 71.5 Basal Metabolic Rate/Score 1,044 Intake Visit Reasons: TV Pre Op LSG 07/24/2024 *COBOL PROGRAMMER* Director International Required: Yes Director International Services: Director International Present Information Interpreted: clinical only Allergies No Known Allergies Allergy (Verified 07/15/24 10:00) Medication List - Last Reconciled 07/15/24 by Devon Blanchard MD biotin mcg PO cholecalciferol (vitamin D3) 125 mcg PO DAILY magnesium oxide 500 mg PO BID ondansetron 4 mg PO Q12H pantoprazole 40 mg PO DAILY polyethylene glycol 3350 17 grams PO DAILY potassium mg PO sucralfate 10 mL PO BID HPI HPI TV Pre Op LSG 07/24/2024 *COBOL PROGRAMMER*: Details: [email or web address] Start time: 9.50am, End time: 10.20am ?I spent 25 minutes speaking with the patient on the phone plus an additional 5 minutes reviewing and updating records for a total of 30 minutes HPI Comments Details: Overall weight loss: 21.5lbs, or 8.4% TBWL Is doing an aggressive meal plan through the [employer] williams doing 4 half bottles of Fairlife and one whole bottle of Fairlife PFSH Medical History Hx of calculus of kidney during Kidney stones Obesity Surgical History No pertinent past surgical history Family History Mother TSH (thyroid-stimulating hormone deficiency) Father Diabetes Daughter No problems noted. Daughter No problems noted. Son Asthma Social History Are you a primary attending ambulatory care to a significant other at home: No Do you presently have visiting nurse or other home services: No Alcohol intake: never Patient Tobacco Use Status: Never used Tobacco Telehealth Telehealth Telehealth Platform: Telephone Location of provider rendering services: practice address Location of patient: address on file Patient Identification confirmed using: Name, : Yes Telehealth method: voice only Patient verbally consented to treatment: Yes Patient verbally consented to billing insurance company: Yes Patient informed of any privacy concerns related to visit: Yes Minutes spent on Phone/Video with Pt.: 30 Assessment & Plan Assessment & Plan (1) Morbid obesity: Code(s): E66.01 - Morbid (severe) obesity due to excess calories Category: Medical Plan: 1. Plan for lap sleeve gastrectomy including upper GI endoscopy. All tests has been completed and reviewed and the patient is cleared for the surgery. ?If diaphragmatic or ventral hernias are present at time of surgery, these will be repaired laparoscopically as well. Risks and complications were discussed in detail including possible conversion to an open procedure, anastomotic leak, bleeding requiring transfusion, small bowel obstruction, , DVT and pulmonary embolism, cardiac, or pulmonary complications, as car escort complications such as anastomotic ulcer, insufficient weight loss and vitamin de ficiencies. I emphasized the importance of close follow-up, adherence to instructions and good communication. So far she has proven to be an excellent communicator and very compliant with all our directions accomplishing a great weight loss. I believe that she is an excellent candidate and she is ready. 2. Preop prescriptions were provided and explained the purpose of each one. Need to be purchased preop. Start Pantoprazole now as you get it from the pharmacy, 1 pill per day. Sucralfate and Zofran are for after surgery as needed. 3. Bowel prep: please do 7 packets ?of Miralax mixing each one with a an 8oz glass of water, crystal light, gatorade zero, or propel ?on 07/22/24 and the same amount on 07/23/24. The Miralax you begin with one packet at a time in 8oz water or crystal light, gatorade zero, or propel ?as early in the day as you can and you do them back to back until you finish them. Continue the protein shakes during ?the bowel prep. 4. Needs to purchase 1oz medicine cups . 5. Needs to purchase Children's liquid Tylenol for postop pain control. 6. Avoid aspirin, motrin, Advil, Aleve, Meloxicam, Excedrin, Ibuprofen, Naproxyn. Tylenol is OK. 7. She needs to purchase the Celebrate multivitamins from the hospital's gift shop. 8. Will do basic preop blood work-up any day between Monday07/16/24 and Monday07/19/24 fasting for 12 hours and is scheduled to see the Anesthesiologist prior to the day of surgery. 8. Importance of adherence to postop folllow-up and recommendations was underscored and she understands that. 9. Continue to avoid food and bars and continue with 4 Fairlife protein shakes (1/2 bottle mixed with 4oz almond milk) at 8am-10am, 11am-1pm, 2pm-4pm, 5pm-7pm and one more whole Fairlife protein shake at 8pm-10pm 10. No soups, broths or V8 11. The patient's?medical?history has been reviewed and they are considered low risk for post op DVT and therefore DVT prophylaxis is not considered necessary. Travel after surgery was reviewed. The patient has not disclosed any travel plans during the first 30 days after surgery and they have been advised that within the first 30 days after surgery any bus, plane, train or car travel over 2 hours in duration is contraindicated due to the possibility of developing blood clots from immobility. Any travel, needs to include periods of ambulation of 10 minutes in duration every 2 hours.? Patient was instructed to discuss any plans for travel during this period with their bariatric surgeon.? 12. Please take at the day of surgery the following medications: NONE 13. Stop any control pills and don't use them for one month after surgery 14. Absolutely no smoking or vaping, or marijuana until the surgery and for at least the first 4 weeks. Only nicotine patches are allowed. 15. Send me weight measurements on Monday07/21/24 and then on Monday on 07/24/24 the day of surgery before you go to the hospital. 16. Avoid any steroids by mouth for any reason. Let me know if someone prescribes them to you 17. These instructions supersede anything else you read in the handbook, anything you watched in videos or classes or you were told by any other provider. If there is any conflict, you follow the above instructions and nothing else. Orders: Orders Comprehensive Met. Panel Today E66.01 - Morbid (severe) obesity due to excess calories TSH reflex Free T4 Today E66.01 - Morbid (severe) obesity due to excess calories Prothrombin Time INR Today E66.01 - Morbid (severe) obesity due to excess calories Type and Screen Today E66.01 - Morbid (severe) obesity due to excess calories C Reactive Protein Today E66.01 - Morbid (severe) obesity due to excess calories Complete Blood Count Auto Diff Today E66.01 - Morbid (severe) obesity due to excess calories Insulin Today E66.01 - Morbid (severe) obesity due to excess calories Lipid Panel Today E66.01 - Morbid (severe) obesity due to excess calories Hemoglobin A1c Today E66.01 - Morbid (severe) obesity due to excess calories Partial Thromboplastin Time Today E66.01 - Morbid (severe) obesity due to excess calories Medications: New sucralfate 10 mL PO BID 600 mL 2RF K21.9 - Gastro-esophageal reflux disease without esophagitis pantoprazole 40 mg PO DAILY 90 tabs 0RF K21.9 - Gastro-esophageal reflux disease without esophagitis ondansetron 4 mg PO Q12H 20 tabs 0RF nausea and vomiting R11.0 - Nausea polyethylene glycol 3350 Mix each measuring cup with 8oz of water, Crystal light, or Gatorade zero, or Propel and do 7 measuring cups on 07/22/24 and another 7 measuring cups on 07/23/24 17 grams PO DAILY 238 grams 0RF Z01.818 - Encounter for other preprocedural examination
== END 2024-07-15 10:21 | disposition home or self-care (01) ==
LOC: HO.HBS 08:05
PROVIDERS: Visit Provider Surgery
DX: E66.01 Morbid (severe) obesity due to excess calories (principal); Z68.41 Body mass index [BMI] 40.0-44.9, adult
CPT/HCPCS: 99499

== ENCOUNTER → 2024-07-15 08:05 | Outpatient (BNVA) | payer OTHER, SELFPAY | PROVIDERS: Visit Provider Surgery ==

== ENCOUNTER 2024-07-19 09:21 | Outpatient (REF) | payer OTHER, SELFPAY ==
[2024-07-19 09:53] LABS: MANUAL DIFF FLAG NO
[2024-07-19 10:45] LABS: Basophils Percent Auto 0.5 % (0-2); Eosinophils Absolute Auto 0.1 X10*3/uL (0.0-0.4); Eosinophils Percent Auto 1.8 % (0-4); Hematocrit 42.8 % (37.0-47.0); Mean Corpuscular HGB Conc 32.7 g/dl (31.0-35.0); Mean Corpuscular Hemoglobin 27.2 pg (27.0-33.0); Mean Corpuscular Volume 83.3 fL (80.0-98.0); Mean Platelet Volume 11.7 fL (9.4-12.3); Monocytes Absolute Auto 0.6 X10*3/uL (0.1-1.2); Monocytes Percent Auto 14.3 % (2-11); Neutrophils Absolute Auto 1.3 x10*3/uL (2.0-8.3); Neutrophils Percent Auto 32.4 % (45-73); Platelet Count 237 X10*3/uL (160-400); Red Blood Count 5.14 X10*6/uL (4.20-5.50)
[2024-07-19 10:46] LABS: Prothrombin Time 12.1 SEC (10.9-12.4)
[2024-07-19 10:49] LABS: Partial Thromboplastin Time 30.9 SEC (26.0-36.8)
[2024-07-19 10:54] LABS: Estimated Average Glucose 108 mg/dL; Hemoglobin A1c % 5.4 % (<6.0); Total Hemoglobin (HGBA1C) 3639.3767 umol/L
[2024-07-19 13:12] LABS: Insulin 6 uU/mL (2-29)
[2024-07-19 13:21] LABS: Alanine Aminotransferase 21 U/L (0-31); Albumin Level 4.3 g/dL (3.5-5.0); Anion Gap 17 (12-20); Aspartate Amino Transferase 27 U/L (5-31); Bilirubin Total 0.3 mg/dL (0.0-1.0); Blood Urea Nitrogen 12 mg/dL (9-16); C Reactive Protein 1.03 mg/dL (< or = 0.50); Calcium 9.1 mg/dL (8.4-10.2); Carbon Dioxide 23 mmol/L (22-29); Chloride 106 mmol/L (96-108); Cholesterol 126 mg/dL (<200); Estimated Glomerular Filt Rate > 60; Glucose Random 68 mg/dL (60-115); HDL Cholesterol 31 mg/dL (>40); LDL Cholesterol Calculated 77 mg/dL (<100); Potassium 3.6 mmol/L (3.3-5.1); Sodium 142 mmol/L (135-145); Total Protein 7.9 g/dL (6.5-8.0); Triglycerides 94 mg/dL (<150)
[2024-07-19 14:18] LABS: Alkaline Phosphatase 73 U/L (39-117)
== END 2024-07-19 09:22 | disposition home or self-care (01) ==
LOC: HO.LAB 09:21
PROVIDERS: PCP Surgery; Visit Provider Surgery
DX: E66.01 Morbid (severe) obesity due to excess calories (principal)
CPT/HCPCS: 36415; 80053; 80061; 83036; 83525; 84443; 85025; 85610; 85730; 86140

== ENCOUNTER → 2024-07-24 08:29 | Outpatient (BNV) | payer OTHER, SELFPAY | PROVIDERS: Admitting Provider Surgery; Visit Provider Surgery | DX: E66.813 Obesity, class 3 (principal); Z68.41 Body mass index [BMI] 40.0-44.9, adult; K66.0 Peritoneal adhesions (postprocedural) (postinfection) | CPT/HCPCS: 43659; 43775 ==

== ENCOUNTER 2024-07-31 13:09 | Outpatient (AMB) | payer OTHER, SELFPAY ==
--- NOTE | 2024-07-31 13:21 | MHC.OFFVISWM ---
VS Expanded 07/31/24 13:33 BP 130/73 Blood Pressure Location Rt brachial Blood Pressure Position Sitting Pulse 67 Pulse Source Pulse Oximeter Temp 98.4 F Temperature Source Temporal Artery Scan Pulse Oximetry 99 Oxygen Delivery Method Room Air Height 5 ft 2.5 in Weight 229 lb 6.4 oz BMI 41.3 Body Fat % 46.4 Body Fat Mass 106.4 Fat Free Mass 122.8 Visceral Fat Rating 11.0 Body Water % 38.6 Body Water Mass 88.4 Muscle Mass/Score 116.6 Basal Metabolic Rate/Score 1,772 Intake Visit Reasons: (OV) PO LSG 07/24/2024 Senior Telecommunications Specialist Required: Yes Senior Telecommunications Specialist Name: Flash [id number] Information Interpreted: clinical only Allergies No Known Allergies Allergy (Verified 07/24/24 08:35) Medication List - Last Reconciled 07/31/24 by FROY Alfredo ondansetron 4 mg PO Q12H pantoprazole 40 mg PO DAILY@0630 sucralfate 10 mL PO BID HPI Comments Details: This?is a?28?yo female who is s/p LSG 07/24/2024. Presents for 1 week post op visit. Starting weight 256.8, weight on day of surgery 231.2. No complaints of nausea, emesis, reflux, or constipation. Reports some abdominal pain with movement/getting up from bed. Present meal plan includes: 3 Fairlife shakes, says she is not mixing but is taking 20oz per day. 15oz water, 15oz Gatorade. Has been walking around at home q2h to help prevent blood clots. [facility] Medical History (Updated 07/27/24 @ 00:02 by Background Daemon) Adjustment disorder with anxiety Non-alcoholic fatty liver disease Hx of calculus of kidney during Kidney stones Obesity Surgical History (Updated 07/27/24 @ 00:02 by Background Daemon) History of esophagogastroduodenoscopy (EGD) Family History Mother TSH (thyroid-stimulating hormone deficiency) Father Diabetes Daughter No problems noted. Daughter No problems noted. Son Asthma Social History Household Members: Family Housing: Apartment Are you a primary day care teacher to a significant other at home: No Do you presently have visiting nurse or other home services: No Alcohol intake: never Patient Tobacco Use Status: Never used Tobacco Physical Exam Const General: cooperative, comfortable and no acute distress Orientation/consciousness: patient oriented x3 GI Other: soft, nontender, nondistended, steri-strips c/d/i Neuro General: patient oriented x3 Assessment & Plan Assessment & Plan (1) S/P laparoscopic sleeve gastrectomy: Code(s): Z98.84 - Bariatric surgery status Category: Surgical (2) Morbid obesity: Code(s): E66.01 - Morbid (severe) obesity due to excess calories Category: Medical Plan May shower but no bath or submersion of abdomen in water. May start exercise tomorrow.? No abdominal exercises x 6 weeks. Abdominal binder for the next 2 weeks with activity or exercise. Continue meal plan per Dr Burkett until next f/u. Reviewed pantoprazole and carafate dosing. Reminded of the pace of drinking 2 mL/min or 1oz per 15 min. Will be emailed link for post op video for review. Colace ordered for constipation, can also use MoM PRN. RTC 2 weeks. I spent a total of 30 minutes reviewing/updating records, examining the patient and counseling the patient on weight management as detailed above. Medications: New docusate sodium (Colace) 100 mg PO BID 90 caps 1RF
[2024-07-31 13:33] VITALS: BP 130/73; PULSE 67; TEMP 36.9; O2SAT 99; BMI 41.3
== END 2024-07-31 14:14 | disposition home or self-care (01) ==
PROVIDERS: Visit Provider Physician Assistant Surgical
DX: E66.813 Obesity, class 3 (principal); Z68.41 Body mass index [BMI] 40.0-44.9, adult; Z90.3 Acquired absence of stomach [part of]; Z98.84 Bariatric surgery status
CPT/HCPCS: 99024

== ENCOUNTER → 2024-07-31 13:09 | Outpatient (BNVA) | payer OTHER, SELFPAY | PROVIDERS: Visit Provider Physician Assistant Surgical | DX: E66.01 Morbid (severe) obesity due to excess calories (principal); Z98.84 Bariatric surgery status; Z68.41 Body mass index [BMI] 40.0-44.9, adult | CPT/HCPCS: 99212 ==

== ENCOUNTER → 2024-08-21 12:32 | Outpatient (AMB) | payer OTHER, SELFPAY ==
--- NOTE | 2024-08-21 12:10 | A.OFFWM_ITS ---
Intake Intake Visit Reasons: VIDEO PO LSG 07/24/2024 Allergies No Known Allergies Allergy (Verified 07/24/24 08:35) PFSH Medical History (Updated 07/27/24 @ 00:02 by Background Kobe) Adjustment disorder with anxiety Non-alcoholic fatty liver disease Hx of calculus of kidney during Kidney stones Obesity Surgical History (Updated 07/27/24 @ 00:02 by Background Kobe) History of esophagogastroduodenoscopy (EGD) Family History Mother TSH (thyroid-stimulating hormone deficiency) Father Diabetes Daughter No problems noted. Daughter No problems noted. Son Asthma Social History Household Members: Family Housing: Apartment Are you a primary long term care pharmacist to a significant other at home: No Do you presently have visiting nurse or other home services: No Alcohol intake: never Patient Tobacco Use Status: Never used Tobacco Behavioral Health Assessment Weight Management Therapy Therapy Notes Details Subjective: PT had bariatric surgery on 07/24/2024. PT reports she has had a good recovery with no complications. At the beginning post-op she was feeling hungry and with some sort of desperation,that lasted briefly. She's working on keep herself busy and use reminders to drink shakes on time. This last week she has been more tired than usual, she believes its due to her period. Other than that she's feeling well. Objective: The patient presents for a postoperative behavioral health visit. We discussed her adjustment to post-surgery life, focusing on expectations related to her food and exercise plan. The PHQ-9 was administered. The patient reports that attending outpatient counseling has been helpful, and she feels her anxiety is well-controlled. Provided additional tips, recommendations, and coping strategies to support her ongoing weight-loss journey. The patient was also informed about a Facebook support group where she can stay updated on program events and access services available to post-operative clients. Assessment/Response: * Mental status: WNL * Risk reported/identified: None. PT appears stable and doing well post-op. Food/Weight/Diet Expectations of change Initial weight: 256Lbs Pre-op weight: 231Lbs Current weight as of 08/15/2024: 221Lbs PT is implementing the following: Current meal plan: 3 shakes and 1 bar. About 60oz of water/liquid at day. Exercise plan: Walking on a treadmill, burning about 300cal at day 5 days at week. Questionnaires PHQ-9 Over the last 2 weeks, how often have you been bothered by any of the following problems? 1. Little interest or pleasure in doing things: several days 2. Feeling down, depressed, or hopeless: not at all 3. Trouble falling or staying asleep, or sleeping too much: not at all 4. Feeling tired or having little energy: several days 5. Poor appetite or overeating: not at all 6. Feeling bad about yourself - or that you are a failure or have let yourself or your family down: not at all 7. Trouble concentrating on things, such as reading the newspaper or watching television: not at all 8. Moving or speaking so slowly that other people could have noticed. Or the opposite - being so fidgety or restless that you have been moving around a lot more than usual: not at all 9. Thoughts that you would be better off or of hurting yourself in some way: not at all Total score: 2 Depression Screening Interpretation: Negative Depression Screening Done: Yes 19315 - PHQ-9 Billing: Yes Source: Developed by Drs. Denny Dewey, Sailaja Lay, Silvano Menjivar and colleagues, with an educational dominick from [employer] Assessment & Plan Assessment & Plan (1) Adjustment disorder with anxiety: Code(s): F43.22 - Adjustment disorder with anxiety Plan The patient appears stable and is progressing well post-operatively. No further behavioral health visits with this provider are advised at this time. The patient is encouraged to continue following her food and exercise plan, with periodic check-ins with P-providers as needed. Telehealth Telehealth Telehealth Platform: [facility] Location of provider rendering services: other Location of patient: address on file Patient Identification confirmed using: Name, : Yes Telehealth method: voice only Patient verbally consented to treatment: Yes Patient verbally consented to billing insurance company: Yes Patient informed of any privacy concerns related to visit: Yes Minutes spent on Phone/Video with Pt.: 45 Coding Level of Care Code Established Pt Tele Psytx 45 mins (65716) Patient Type Established Diagnoses Adjustment disorder with anxiety F43.22 Additional Codes PHQ-9 - 93918 - PHQ-9 Billing: Yes ([id number]) Time Spent (min) 45
== END ==
PROVIDERS: Visit Provider Counselor Mental Health
DX: F43.22 Adjustment disorder with anxiety (principal)
CPT/HCPCS: 90834

== ENCOUNTER → 2024-08-21 12:32 | Outpatient (BNVA) | payer OTHER, SELFPAY | PROVIDERS: Visit Provider Counselor Mental Health ==

== ENCOUNTER 2024-08-22 13:25 | Outpatient (AMB) | payer OTHER, SELFPAY ==
--- NOTE | 2024-08-22 13:26 | MHC.OFFVISWM ---
VS Expanded 08/22/24 14:52 BP 114/67 Pulse 74 Temp 97.3 F Pulse Oximetry 99 Height 5 ft 2.5 in Weight 218 lb BMI 39.2 Body Fat % 46 Body Fat Mass 100 Fat Free Mass 117.8 Visceral Fat Rating 11 Body Water % 38.9 Body Water Mass 84.6 Muscle Mass/Score 111.8 Basal Metabolic Rate/Score 1,698 Intake Visit Reasons: (OV) PO LSG 07/24/2024 Product Support Representative Required: Yes Product Support Representative Name: Marli [id number] Information Interpreted: clinical only Allergies No Known Allergies Allergy (Verified 07/24/24 08:35) Medication List - Last Reconciled 08/22/24 by FROY Alfredo docusate sodium (Colace) 100 mg PO BID pantoprazole 40 mg PO DAILY@0630 sucralfate 10 mL PO BID HPI Comments Details: This?is a 28?yo female who is s/p LSG 07/24/2024. Presents for 1 month post op visit. Weight at last visit on 07/31/2023 was 229.4 pounds; weight today is 218 pounds, representing an 11.2 pound weight loss with a BMI today of 39.2.? No complaints of nausea, emesis, abdominal pain or reflux, or constipation. Reports a delayed menstrual cycle and some fatigue, wants to know if this is normal. She reports it is unlikely she is , was tested. Also notes some swelling of legs. This may have been present prior to surgery, pt unsure when started; not particularly painful but not improving. No SOB. Present meal plan includes: Fairlife shakes - 3 per day, 8-10am, 11am-2pm, 3-5pm 1 protein bar- Celebrate 5pm-8pm Exercise routine includes: was tired this week so went less; has a treadmill at home [facility] Medical History (Updated 07/27/24 @ 00:02 by Background Daemon) Adjustment disorder with anxiety Non-alcoholic fatty liver disease Hx of calculus of kidney during Kidney stones Obesity Surgical History (Updated 07/27/24 @ 00:02 by Background Daemon) History of esophagogastroduodenoscopy (EGD) Family History Mother TSH (thyroid-stimulating hormone deficiency) Father Diabetes Daughter No problems noted. Daughter No problems noted. Son Asthma Social History Household Members: Family Housing: Apartment Are you a primary vehicle care specialist to a significant other at home: No Do you presently have visiting nurse or other home services: No Alcohol intake: never Patient Tobacco Use Status: Never used Tobacco Assessment & Plan Assessment & Plan (1) Obesity: Code(s): E66.9 - Obesity, unspecified Category: Medical (2) S/P laparoscopic sleeve gastrectomy: Code(s): Z98.84 - Bariatric surgery status Category: Surgical Plan Continue to text Dr Burkett weekly, meal plan per him. Reviewed heavy lifting restriction for 2 more weeks. Continue PPI/carafate. No longer needs abdominal binder. Bilateral LE US to r/o DVT. Recommended compression stockings 20-30 mm Hg, showed pt examples on [employer]. RTC 1 mo. Orders: Orders US venous duplex LE BI Today M79.89 - Other specified soft tissue disorders
[2024-08-22 14:52] VITALS: BP 114/67; PULSE 74; TEMP 36.3; O2SAT 99; BMI 39.2
== END 2024-08-22 15:08 | disposition home or self-care (01) ==
PROVIDERS: Visit Provider Physician Assistant Surgical
DX: E66.812 Obesity, class 2 (principal); Z68.39 Body mass index [BMI] 39.0-39.9, adult; Z90.3 Acquired absence of stomach [part of]; Z98.84 Bariatric surgery status
CPT/HCPCS: 99024

== ENCOUNTER → 2024-08-22 13:25 | Outpatient (BNVA) | payer OTHER, SELFPAY | PROVIDERS: Visit Provider Physician Assistant Surgical ==

== ENCOUNTER 2024-08-22 14:41 | Outpatient (REF) | payer OTHER, SELFPAY ==
--- NOTE | ~2024-08-22 | US_ITS ---
EXAMINATION: US TRIPLEX LOWER EXTREMITY, BILATERAL CLINICAL INFORMATION: Bilateral calf swelling, persisting one month after sleeve gastrectomy. COMPARISON: None available. TECHNIQUE: Color-flow triplex imaging with spectral analysis and compression Doppler were performed on the bilateral lower extremities. FINDINGS: Respiratory variation, normal compression and augmented flow are noted throughout the bilateral lower extremities. The visualized common femoral vein, superficial femoral vein, profunda femoral vein, popliteal vein and midcalf peroneal and posterior tibial venous segments show no evidence of deep venous thrombosis bilaterally. There is no Mcnally's cyst. No significant calf edema noted. US/US venous duplex LE BI IMPRESSION: No evidence of deep venous thrombosis involving the bilateral lower extremities. Electronically signed by: Jadon Spain MD 08/22/2024 03:13 PM GEOVANNA ALEAXNDRA
== END 2024-08-22 14:42 | disposition home or self-care (01) ==
LOC: HO.US 14:41
PROVIDERS: Visit Provider Physician Assistant Surgical
DX: R60.0 Localized edema (principal)
CPT/HCPCS: 93970

== ENCOUNTER → 2024-08-22 14:45 | Outpatient (BNV) | payer OTHER, SELFPAY | PROVIDERS: Visit Provider Radiology Diagnostic Radiology | DX: R22.43 Localized swelling, mass and lump, lower limb, bilateral (principal) | CPT/HCPCS: 93970 ==

== ENCOUNTER 2024-09-24 12:34 | Outpatient (AMB) | payer OTHER, SELFPAY ==
--- NOTE | 2024-09-24 12:27 | MHC.OFFVISWM ---
VS Expanded 09/24/24 12:37 Height 5 ft 2.5 in Weight 212 lb BMI 38.2 Intake Visit Reasons: (TV) PO LSG 07/24/2024 Senior National Account Manager Required: Yes Senior National Account Manager Name: Edson [id number] Information Interpreted: clinical only Allergies No Known Allergies Allergy (Verified 07/24/24 08:35) Medication List - Last Reconciled 09/24/24 by FROY Alfredo docusate sodium (Colace) 100 mg PO BID pantoprazole 40 mg PO DAILY@0630 sucralfate 10 mL PO BID HPI Comments Details: This?is a?29?yo female who is s/p LSG 07/24/2024. Presents for 2 month post op visit. Weight at last visit on 08/22/2024 was 218 pounds with a BMI of 39.2, weight today is 212 pounds, representing a 6 pound weight loss with a BMI today of 38.2.? No complaints of nausea, emesis, abdominal pain or reflux, or constipation. When asked about how her fatigue has been, she says okay . Tried compression socks for leg swelling, but hasn't helped much. Present meal plan includes: [employer] shakes - 3 per day, 8-10am, 11am-2pm, 3-5pm 1 protein bar- Celebrate 5pm-8pm hydration is adequate- although pt unsure how many oz per day taking MVI Exercise routine includes: has a treadmill at home- 30-45min/day, 5x week PFSH Medical History (Updated 07/27/24 @ 00:02 by Background Kobe) Adjustment disorder with anxiety Non-alcoholic fatty liver disease Hx of calculus of kidney during Kidney stones Obesity Surgical History (Updated 07/27/24 @ 00:02 by Background Dalizz) History of esophagogastroduodenoscopy (EGD) Family History Mother TSH (thyroid-stimulating hormone deficiency) Father Diabetes Daughter No problems noted. Daughter No problems noted. Son Asthma Social History Household Members: Family Housing: Apartment Are you a primary child adolescent care to a significant other at home: No Do you presently have visiting nurse or other home services: No Alcohol intake: never Patient Tobacco Use Status: Never used Tobacco Telehealth Telehealth Telehealth Platform: Telephone Location of provider rendering services: other Location of patient: address on file Patient Identification confirmed using: Name, : Yes Telehealth method: voice only Patient verbally consented to treatment: Yes Patient verbally consented to billing insurance company: Yes Patient informed of any privacy concerns related to visit: Yes Minutes spent on Phone/Video with Pt.: 16 Assessment & Plan Assessment & Plan (1) S/P laparoscopic sleeve gastrectomy: Code(s): Z98.84 - Bariatric surgery status Category: Surgical (2) Obesity: Code(s): E66.9 - Obesity, unspecified Category: Medical Plan Pt to continue meal plan per Dr. Tamayo Will order bloodwork for complaint of ongoing fatigue and leg swelling- previous BLE US negative. No activity restrictions. Due to complete carafate and PPI this month. RTC 1 month. Orders: Orders Vitamin D 25-OH Total Today Z98.84 - Bariatric surgery status Vitamin B12 and Folate Today Z98.84 - Bariatric surgery status Comprehensive Met. Panel Today Z98.84 - Bariatric surgery status TSH reflex Free T4 Today Z98.84 - Bariatric surgery status IRON PROFILE Today Z98.84 - Bariatric surgery status Zinc Today Z98.84 - Bariatric surgery status Vitamin A Today Z98.84 - Bariatric surgery status Ferritin Today Z98.84 - Bariatric surgery status Vitamin B1 Today Z98.84 - Bariatric surgery status Complete Blood Count Auto Diff Today Z98.84 - Bariatric surgery status
[2024-09-24 12:37] VITALS: BMI 38.2
== END 2024-09-24 12:42 | disposition home or self-care (01) ==
LOC: HO.HBS 12:35
PROVIDERS: Visit Provider Physician Assistant Surgical
DX: E66.9 Obesity, unspecified (principal); Z68.38 Body mass index [BMI] 38.0-38.9, adult; Z98.84 Bariatric surgery status
CPT/HCPCS: 99024

== ENCOUNTER → 2024-09-24 12:34 | Outpatient (BNVA) | payer OTHER, SELFPAY | PROVIDERS: Visit Provider Physician Assistant Surgical ==

== ENCOUNTER 2024-09-30 11:59 | Outpatient (REF) | payer OTHER, SELFPAY ==
[2024-09-30 12:14] LABS: MANUAL DIFF FLAG NO
[2024-09-30 12:47] LABS: Basophils Absolute Auto 0.1 X10*3/uL (0.0-0.2); Basophils Percent Auto 0.8 % (0-2); Eosinophils Absolute Auto 0.1 X10*3/uL (0.0-0.4); Eosinophils Percent Auto 2.3 % (0-4); Hematocrit 39.9 % (37.0-47.0); Hemoglobin 13.3 g/dl (12.0-16.0); Imm Gran Abs Auto 0.01 X10*3/uL (0.00-0.03); Imm Gran Pct Auto 0.2 % (0.0-0.4); Lymphocytes Absolute Auto 2.9 X10*3/uL (1.2-4.9); Lymphocytes Percent Auto 46.6 % (20-40); Mean Corpuscular HGB Conc 33.3 g/dl (31.0-35.0); Mean Corpuscular Hemoglobin 28.2 pg (27.0-33.0); Mean Corpuscular Volume 84.7 fL (80.0-98.0); Mean Platelet Volume 11.2 fL (9.4-12.3); Monocytes Absolute Auto 0.5 X10*3/uL (0.1-1.2); Monocytes Percent Auto 7.3 % (2-11); Neutrophils Absolute Auto 2.7 x10*3/uL (2.0-8.3); Neutrophils Percent Auto 42.8 % (45-73); Platelet Count 290 X10*3/uL (160-400); Red Blood Count 4.71 X10*6/uL (4.20-5.50); White Blood Count 6.2 X10*3/uL (4.8-10.8)
[2024-09-30 13:55] LABS: Alanine Aminotransferase 31 U/L (0-31); Alkaline Phosphatase 70 U/L (39-117); Anion Gap 9 (12-20); Aspartate Amino Transferase 20 U/L (5-31); Bilirubin Total 0.7 mg/dL (0.0-1.0); Blood Urea Nitrogen 11 mg/dL (9-16); Calcium 9.2 mg/dL (8.4-10.2); Carbon Dioxide 26 mmol/L (22-29); Chloride 110 mmol/L (96-108); Estimated Glomerular Filt Rate > 60; Ferritin 73 ng/mL (10-122); Glucose Random 89 mg/dL (60-115); Iron 65 mcg/dL (30-160); Percent Iron Saturation 27 % (15-50); Potassium 3.8 mmol/L (3.3-5.1); Sodium 141 mmol/L (135-145); TSH reflex Free T4 1.37 uIU/mL (0.32-4.0); Total Iron Binding Capacity 239 mcg/dL (228-428); Total Protein 6.7 g/dL (6.5-8.0); Unsaturated Iron Binding 174 ug/dL; Vitamin D 25-OH Total 31.4 ng/mL (>30)
[2024-09-30 14:05] LABS: Vitamin B12 425 pg/mL (200-900)
[2024-10-02 23:29] LABS: Zinc 68 mcg/dL (60-130)
[2024-10-03 19:19] LABS: Vitamin A 46 mcg/dL (38-98)
[2024-10-11 06:23] LABS: Vitamin B1 8 nmol/L (8-30)
== END 2024-09-30 12:00 | disposition home or self-care (01) ==
LOC: HO.LAB 11:59
PROVIDERS: Visit Provider Physician Assistant Surgical
DX: Z98.84 Bariatric surgery status (principal)
CPT/HCPCS: 36415; 80053; 82306; 82607; 82728; 82746; 83540; 84425; 84443; 84590; 84630; 85025

== ENCOUNTER 2024-10-28 10:54 | Outpatient (AMB) | payer OTHER, SELFPAY ==
--- NOTE | 2024-10-28 10:39 | A.OFFVIS_ITS ---
VS Expanded 10/28/24 10:43 Height 5 ft 2.5 in Weight 203 lb BMI 36.5 Intake Visit Reasons: PO LSG 07/24/24 Feed And Farm Management Adviser Required: Yes Feed And Farm Management Adviser Name: Edson [id number] Information Interpreted: clinical only Allergies No Known Allergies Allergy (Verified 07/24/24 08:35) Medication List - Last Reconciled 10/28/24 by FROY Alfredo docusate sodium (Colace) 100 mg PO BID HPI Comments Details: This?is a?29?yo F who is s/p LSG 07/24/2024. Presents for 3mo post op visit. Weight at last visit on 09/24/2024 was 212 pounds with a BMI of 38.2, weight today is 203 pounds, representing a 9 pound weight loss with a BMI today of 36.5.? No complaints of nausea, emesis, abdominal pain or reflux, or constipation. PPI and carafate complete. Feels that leg swelling is a little better. Present meal plan includes: [employer] shakes - 3 per day, 8-10am, 11am-2pm, 3-5pm 1 protein bar- Celebrate hydration is adequate taking MVI Exercise routine includes: has a treadmill at home- 30-45min/day, 5x week PFSH Medical History (Updated 07/27/24 @ 00:02 by Background Daemon) Adjustment disorder with anxiety Non-alcoholic fatty liver disease Hx of calculus of kidney during Kidney stones Obesity Surgical History (Updated 07/27/24 @ 00:02 by Background Daemon) History of esophagogastroduodenoscopy (EGD) Family History Mother TSH (thyroid-stimulating hormone deficiency) Father Diabetes Daughter No problems noted. Daughter No problems noted. Son Asthma Social History Household Members: Family Housing: Apartment Are you a primary care director rn to a significant other at home: No Do you presently have visiting nurse or other home services: No Alcohol intake: never Patient Tobacco Use Status: Never used Tobacco Telehealth Telehealth Telehealth Platform: Telephone Location of provider rendering services: other Location of patient: address on file Patient Identification confirmed using: Name, : Yes Telehealth method: voice only Patient verbally consented to treatment: Yes Patient verbally consented to billing insurance company: Yes Patient informed of any privacy concerns related to visit: Yes Minutes spent on Phone/Video with Pt.: 16 Assessment & Plan Assessment & Plan (1) S/P laparoscopic sleeve gastrectomy: Code(s): Z98.84 - Bariatric surgery status Category: Surgical (2) Obesity: Code(s): E66.9 - Obesity, unspecified Category: Medical Plan Pt to continue meal plan per Dr Burkett, communicate weekly. Continue exercise regimen, goal 2000 eloy burned per week. Labs reviewed. PPI and carafate complete. RTC 6w.
[2024-10-28 10:43] VITALS: BMI 36.5
== END 2024-10-28 10:58 | disposition home or self-care (01) ==
LOC: HO.HBS 10:54
PROVIDERS: Visit Provider Physician Assistant Surgical
DX: E66.9 Obesity, unspecified (principal); Z68.36 Body mass index [BMI] 36.0-36.9, adult; E66.812 Obesity, class 2; Z98.84 Bariatric surgery status
CPT/HCPCS: 99214; G2211

== ENCOUNTER → 2024-10-28 10:54 | Outpatient (BNVA) | payer OTHER, SELFPAY | PROVIDERS: Visit Provider Physician Assistant Surgical | DX: Z98.84 Bariatric surgery status (principal); E66.9 Obesity, unspecified ==

== ENCOUNTER 2024-12-02 11:52 | Outpatient (AMB) | payer OTHER, SELFPAY ==
--- NOTE | 2024-12-02 11:32 | A.OFFVIS_ITS ---
VS Expanded 12/02/24 11:38 Height 5 ft 2.5 in Weight 197 lb BMI 35.5 Intake Visit Reasons: TELEPHONE PO LSG 07/24/24 Radio Interference Trouble Shooter Required: Yes Radio Interference Trouble Shooter Name: Edson [id number] Information Interpreted: clinical only Allergies No Known Allergies Allergy (Verified 07/24/24 08:35) Medication List - Last Reconciled 12/02/24 by FROY Alfredo docusate sodium (Colace) 100 mg PO BID HPI Comments Details: This?is a?29?yo F who is s/p LSG 07/24/2024. Presents for 6mo post op visit. Weight at last visit on 10/28/2024 was 203 pounds with a BMI of 36.5, weight today is 197 pounds, representing a 6 pound weight loss with a BMI today of 35.5.? No complaints of nausea, emesis, abdominal pain or reflux, or constipation. Present meal plan includes: [employer] shakes - 3 per day 1 protein bar- Celebrate hydration is adequate taking MVI - she has introduced solid food on her own, reports she has not spoken to Dr Burkett in a while. Eggs, meat- chicken/salmon 2-3 bites. Has not tried veg- too full from protein Exercise routine includes: has a treadmill at home- 30-45min/day, 5x week has also introduced weight training [facility] Medical History (Updated 07/27/24 @ 00:02 by Background Kobe) Adjustment disorder with anxiety Non-alcoholic fatty liver disease Hx of calculus of kidney during Kidney stones Obesity Surgical History (Updated 07/27/24 @ 00:02 by Background Daemon) History of esophagogastroduodenoscopy (EGD) Family History Mother TSH (thyroid-stimulating hormone deficiency) Father Diabetes Daughter No problems noted. Daughter No problems noted. Son Asthma Social History Household Members: Family Housing: Apartment Are you a primary child care lead teacher to a significant other at home: No Do you presently have visiting nurse or other home services: No Alcohol intake: never Patient Tobacco Use Status: Never used Tobacco Telehealth Telehealth Telehealth Platform: Telephone Location of provider rendering services: other Location of patient: address on file Patient Identification confirmed using: Name, : Yes Telehealth method: voice only Patient verbally consented to treatment: Yes Patient verbally consented to billing insurance company: Yes Patient informed of any privacy concerns related to visit: Yes Minutes spent on Phone/Video with Pt.: 17 Assessment & Plan Assessment & Plan (1) S/P laparoscopic sleeve gastrectomy: Code(s): Z98.84 - Bariatric surgery status Category: Surgical (2) Obesity: Code(s): E66.9 - Obesity, unspecified Category: Medical Plan Meal plan now 3 [employer] shakes plus one small meal 2-3f protein; can introduce cooked veg like broccoli/cauliflower. Had labs done previously in September. Pt is moving to [place] in December. We discussed that we cannot have telephone visits while she is located there. I encouraged her to find a bariatric surgeon in her new location to connect with. She may text me with any questions in the meantime. Sent healthy foods handout in Hebrew.
[2024-12-02 11:38] VITALS: BMI 35.5
== END 2024-12-02 11:56 | disposition home or self-care (01) ==
LOC: HO.HBS 11:52
PROVIDERS: Visit Provider Physician Assistant Surgical
DX: E66.9 Obesity, unspecified (principal); Z68.35 Body mass index [BMI] 35.0-35.9, adult; Z90.3 Acquired absence of stomach [part of]; Z98.84 Bariatric surgery status
CPT/HCPCS: 99214; G2211

== ENCOUNTER → 2024-12-02 11:52 | Outpatient (BNVA) | payer OTHER, SELFPAY | PROVIDERS: Visit Provider Physician Assistant Surgical ==